=== PATIENT | male | born 1950 | race Caucasian/White ===

== ENCOUNTER 2025-02-09 07:56 | Emergency (ER) | payer MEDICARE, SELFPAY ==
[2025-02-09 08:00] VITALS: PULSE 94; O2SAT 95
[2025-02-09 08:04] VITALS: BP 158/95; PULSE 90; RESP 18; TEMP 36.8; O2SAT 98; BMI 25.3
--- NOTE | 2025-02-09 08:24 | ED.PSYCH ---
HPI - Psych General Chief Complaint: Psychiatric Symptoms Stated Complaint: SOB,CRISIS EVAL,UNREADABLE CMED Time Seen by Provider: 02/09/25 08:07 Source: patient, EMS, RN notes reviewed and old records reviewed Mode of arrival: EMS Limitations: no limitations History of Present Illness ED Provider: ORTIZ Abernathy HPI Narrative: 74-year-old male with medical history of depression, anxiety, HTN presents to the ED due to increased depression and anxiety. Patient states he has had increased life stressors stating that he has been evicted, lost his job, and has had a strained relationship with his daughter due to these issues. Patient states he is having a hard time finding a job due to his age. Patient states he has been drinking daily over the past 5 months endorsing 9 beers per day, denies drug use. Patient denies history of alcohol withdrawal seizures or admission for alcohol withdrawal. Patient explains he has had an increase in vague suicidal ideation and anxiety over the past 3 days with disrupted sleep, does not have a specific plan. Denies physical complaints today. Denies HI, AH, VH, chest pain, shortness of breath, difficulty breathing, abdominal pain, nausea, vomiting, headaches, visual changes Related Data Home Medications ?Medication ?Instructions ?Recorded ?Confirmed No Known Home Meds 02/09/25 02/09/25 Allergies Allergy/AdvReac Type Severity Reaction Status Date / Time No Known Allergies (No Known Allergy Verified 02/09/25 08:07 Allergies*) Review of Systems Review of Systems: Yes all other systems are reviewed and are negative PMFSH Past Medical History Attestation statement: The following information was validated with the patient. Source: old records reviewed and nursing notes reviewed Social History Social History Smoked in Last 30 Days: Yes Use of substances other than those prescribed or required for medical reasons: Yes Substance Use Type: Marijuana Advance Directives: No Advance Directives Information Provided: No Physical Exam Vital Signs: Vital Signs: Last Vital Signs Temp 98.2 F 02/09/25 08:04 Pulse 90 02/09/25 08:04 Resp 18 02/09/25 08:04 BP 158/95 H 02/09/25 08:04 Pulse Ox 98 02/09/25 08:04 O2 Del Method Room Air 02/09/25 08:04 BMI result Body Mass Index 25.3 GENERAL APPEARANCE: ?AxOx4, patient with appropriate eye contact, conversive, seems to have good insight to his psychiatric conditions as he does not want to act out on suicidal ideation, patient is able to identify multiple stressors in his life causing him to experience increased depression and anxiety, no acute distress. HEENT: ?NC, AT. MMM. EOMI, clear conjunctiva, oropharynx clear. NECK: ?Supple without lymphadenopathy.? No stiffness or restricted ROM. HEART:? Normal rate and regular rhythm, normal S1/S2, no m/r/g LUNGS:? CTAB, moving air well. No crackles or wheezes are heard. ABDOMEN: ?Soft, nontender, nondistended BACK: No CVAT, no obvious deformity. EXTREMITIES: ?Without cyanosis, clubbing or edema. NEUROLOGICAL: ?Grossly nonfocal. Alert and oriented, moving all 4 extremities. Observed to ambulate with normal gait. Skin: ?Warm and dry without any rash. Medications Administered Discontinued Medications Generic Name Dose Route Start Last Admin Trade Name Haileq PRN Reason Stop Dose Admin Lorazepam 1 mg 02/09/25 08:28 02/09/25 08:39 Lorazepam 1 Mg Tablet PO 02/09/25 08:29 1 mg ONCE ONE Administration Medical Decision Making Medical Decision Making [facility] Narrative: 74-year-old male with medical history of depression, anxiety, HTN presents to the ED due to increased depression and anxiety with passive suicidal ideation and difficulty sleeping over the last 4 days due to increased life stressors. Patient has been drinking daily over the past 5 months endorsing 9 beers per day. Denies drug use. BP 158/95, pulse rate of 90, respiratory rate of 18, afebrile with oral temp of 98.2?, O2 saturation 98% on room air. On physical exam patient with appropriate eye contact, conversive, seems to have good insight to his psychiatric conditions as he does not want to act out on suicidal ideation, patient is able to identify multiple stressors in his life causing him to experience increased depression and anxiety, no acute distress. labs without leukocytosis / leukopenia, no evidence of anemia, no electrolyte abnormalities. UA reveals 1+ urine blood without evidence of infection. Toxicology positive for marijuana, with ethyl alcohol level of 94. EKG reveals normal sinus rhythm with left axis deviation, no ST elevation/depression, lengthened QT. patient was evaluated by behavioral health specialist Ghanshyam Larsen who has placed referral to the [facility] and [facility] program for support in the patients mental health with referral to [facility] for psychiatric social worker, housing support, case management and recovery coaching/ peer support. Patient is agreeable to the plan. I have counseled patient to follow up with PCP due to blood in the urine, however patient follows urology and had recent prostate biopsy. Patient feels well enough to go home for self care. Patient is in agreement with the plan. Differential Diagnosis Differential Diagnoses: The differential diagnosis associated with the presentation includes Increased depression Increased anxiety Suicidal ideation Auditory hallucinations Visual hallucinations Alcohol withdrawal Admission/Observation Consideration of admission/observation: Escalation of care including admission/observation considered Lab Data MDM Lab Attestation statement: I reviewed the patient's lab results. 02/09/25 09:03 02/09/25 09:03 Labs: Lab Results 02/09/25 02/09/25 Range/Units 08:57 09:03 WBC 10.3 (4.8-10.8) X10*3/uL RBC 4.68 (4.60-5.80) X10*6/uL Hgb 16.2 (14.0-18.0) g/dl Hct 46.9 (42.0-52.0) % MCV 100.2 H (80.0-98.0) fL MCH 34.6 H (27.0-33.0) pg MCHC 34.5 (31.0-36.0) g/dl RDW 13.3 (11.0-16.0) % Plt Count 209 (160-400) X10*3/uL MPV 9.8 (9.4-12.4) fL Immature Gran % (Auto) 0.6 H (0.0-0.4) % Neut % (Auto) 58.8 (45-73) % Lymph % (Auto) 27.9 (20-40) % Banks % (Auto) 9.3 (2-11) % Eos % (Auto) 2.3 (0-4) % Baso % (Auto) 1.1 (0-2) % Lymph # (Auto) 2.9 (1.2-4.9) X10*3/uL Banks # (Auto) 1.0 (0.1-1.2) X10*3/uL Eos # (Auto) 0.2 (0.0-0.4) X10*3/uL Baso # (Auto) 0.1 (0.0-0.2) X10*3/uL Abs Immat Gran (auto) 0.06 H (0.00-0.03) X10*3/uL Absolute Neuts (auto) 6.1 (2.0-8.3) x10*3/uL Absolute Nucleated RBC 0.000 (0.0-0.012) X10*3/uL Nucleated RBC % (auto) 0.0 (0.0-0.2) /100WBC Sodium 140 (135-145) mmol/L Potassium 3.7 (3.3-5.1) mmol/L Chloride 104 (96-108) mmol/L Carbon Dioxide 29 (22-29) mmol/L Anion Gap 11 L (12-20) BUN 6 L (9-16) mg/dL Creatinine 0.86 (0.5-1.4) mg/dL Estim Creat Clear Calc 67.5 Estimated GFR > 60 Random Glucose 85 (60-115) mg/dL Calcium 8.8 (8.4-10.2) mg/dL Magnesium 2.5 (1.6-2.6) mg/dL Total Bilirubin 0.4 (0.0-1.0) mg/dL AST 38 H (5-37) U/L ALT 17 (0-40) U/L Alkaline Phosphatase 109 (39-117) U/L Total Protein 7.4 (6.5-8.0) g/dL Albumin 4.1 (3.5-5.0) g/dL Urine Color Yellow Urine Appearance Clear Urine pH 7.0 (5.0-9.0) Ur Specific [place] 1.010 (1.005-1.025) Urine Protein Negative (Neg-Trace) mg/dL Urine Glucose (UA) Negative (Negative) mg/dL Urine Ketones Negative (Negative) mg/dL Urine Blood Small (1+) H (Negative) Urine Nitrite Negative (Negative) Ur Leukocyte Esterase Negative (Negative) Urine RBC 0-2 (0-2) /HPF Urine WBC 0-5 (0-5) /HPF Ur Squamous Epith Cells 0-2 (0-2) /HPF Urine Bacteria None Seen (None Seen) Hyaline Casts 0-2 (0-2) /LPF Urine Opiates Screen Not Detected (Not Detect) Ur Buprenorphine Scrn Not Detected (Not Detect) ng/mL Ur Oxycodone Screen Not Detected (Not Detect) ng/mL Urine Methadone Screen Not Detected (Not Detect) ng/mL Urine Fentanyl Screen Not Detected (Not Detect) Ur Barbiturates Screen Not Detected (Not Detect) Ur Phencyclidine Scrn Not Detected (Not Detect) Ur Amphetamines Screen Not Detected (Not Detect) U Benzodiazepines Scrn Not Detected (Not Detect) Urine Cocaine Screen Not Detected (Not Detect) U Marijuana (THC) Screen POSITIVE H (Not Detect) Ethyl Alcohol 94 mg/dL Independent Interpretation I performed an independent interpretation of an: EKG Interpretation: I personally interpreted the EKG which reveals normal sinus rhythm with left axis deviation, no ST elevation /depression, QT prolongation Vent. Rate : 80 BPM Atrial Rate : 80 BPM P-R Int : 182 ms QRS Dur : 76 ms QT Int : 356 ms P-R-T Axes : 86 -36 72 degrees QTcB Int : 410 ms Normal sinus rhythm Left axis deviation Low voltage QRS Cannot rule out Anteroseptal infarct (cited on or before 30-Mar-2014) Abnormal ECG When compared with ECG of 25-Oct-2015 15:26, QRS axis Shifted left Questionable change in initial forces of Anterior leads Independent Historian Clinical information obtained from an independent historian. History obtained from or confirmed by: EMS External Record Review External record reviewed: Inpatient record, Office record and Outpatient record Chronic Conditions Patient?s care impacted by: Hypertension and Other ( depression, anxiety) Social Determinants Patient?s care significantly limited by Social Determinants of Health including: Other Social Determinant of Health Discharge Plan Discharge Clinical Impression: Depression Patient Disposition: Home, Self-Care Additional Instructions: Please follow up with the partial hospitalization program for access to therapist, and resources for your mental health they will call you Wednesday. You were provided with many resources and referred to [facility] for housing support, case management, and recovery coaching/ peer support. Your labs showed blood in the urine, please follow up with your PCP and urologist. You were seen in our Emergency Department today for treatment of a behavioral health issue. It is important after your visit that you follow up with either your behavioral health provider or a primary care doctor within 7 days.? If you have trouble finding a therapist you can reach out to [address] [phone] The National Suicide and Crisis Lifeline can be reached 7 days a week 24 hours a day.? Call 988 to speak with someone.? Return for any worsening symptoms or concerns such as thoughts of self harm or harm to others. Please call 911 if you feel your mental health is worsening.? Prescriptions: No Action No Known Home Meds Interventions: [place]-Suicide Risk Severity Scale Last Done: 02/09/25 08:14 Print Language: Lithuanian
--- NOTE | 2025-02-09 08:29 | ECG_ITS ---
Test Reason : CHECK QT Blood Pressure : */* mmHG Vent. Rate : 80 BPM Atrial Rate : 80 BPM P-R Int : 182 ms QRS Dur : 76 ms QT Int : 356 ms P-R-T Axes : 86 -36 72 degrees QTcB Int : 410 ms Normal sinus rhythm Left axis deviation Low voltage QRS Cannot rule out Anteroseptal infarct (cited on or before 30-Mar-2014) Abnormal ECG When compared with ECG of 25-Oct-2015 15:26, Questionable change in initial forces of Anterior leads Referred By: Nick Abernathy Electronically Signed By: MOHSEN BALBUENA
--- NOTE | 2025-02-09 08:42 | MHC.CM.ED ---
Patient is currently in ER. Apparently scheduled to be in [place] [address] due to eviction today. [facility] contacted by T/W with patient's permission. Letter verifying patient is currently in ER faxed to [phone]. Original letter provided to patient.
--- NOTE | 2025-02-09 08:50 | PC.NURSE ---
Pt moved from ED 5 to 6, patient presents for vague SI due to external life stressors. Pt is calm and cooperative at this time, currently pending medical clearance and CARE team evaluation
[2025-02-09 09:10] LABS: MANUAL DIFF FLAG NO
[2025-02-09 09:16] LABS: Appearance Urine Clear; Glucose Urine UA Negative (Negative); PH 7.0 (5.0-9.0); Specific Gravity - Urine 1.010 (1.005-1.025); UMIC TRIGGER UACC YES
[2025-02-09 09:18] LABS: Hematocrit 46.9 % (42.0-52.0); Hemoglobin 16.2 g/dl (14.0-18.0); Imm Gran Abs Auto 0.06 X10*3/uL (0.00-0.03); Imm Gran Pct Auto 0.6 % (0.0-0.4); Lymphocytes Absolute Auto 2.9 X10*3/uL (1.2-4.9); Mean Corpuscular HGB Conc 34.5 g/dl (31.0-36.0); Mean Corpuscular Hemoglobin 34.6 pg (27.0-33.0); Mean Corpuscular Volume 100.2 fL (80.0-98.0); NRBC Abs Auto 0.000 X10*3/uL (0.0-0.012); NRBC Pct Auto 0.0 /100WBC (0.0-0.2); Platelet Count 209 X10*3/uL (160-400); Red Blood Count 4.68 X10*6/uL (4.60-5.80); White Blood Count 10.3 X10*3/uL (4.8-10.8)
[2025-02-09 09:29] LABS: Alanine Aminotransferase 17 U/L (0-40); Albumin Level 4.1 g/dL (3.5-5.0); Alkaline Phosphatase 109 U/L (39-117); Anion Gap 11 (12-20); Aspartate Amino Transferase 38 U/L (5-37); Blood Urea Nitrogen 6 mg/dL (9-16); Calcium 8.8 mg/dL (8.4-10.2); Carbon Dioxide 29 mmol/L (22-29); Chloride 104 mmol/L (96-108); Creatinine Clr Calc Pharmacy 67.5; Estimated Glomerular Filt Rate > 60; Magnesium 2.5 mg/dL (1.6-2.6); Potassium 3.7 mmol/L (3.3-5.1); Sodium 140 mmol/L (135-145); Total Protein 7.4 g/dL (6.5-8.0)
[2025-02-09 09:37] LABS: Cannabinoid Screen Urine POSITIVE (Not Detect)
--- OUTSIDE RECORDS SUMMARY | 2025-02-09 10:15 | XMS_ITS | Encounter Summary ---
Author Organization [facility] Address [id number] [place] [phone] Care Team Providers Care Buyers' Agent Name Role Phone Harish Zaidi Primary Care Provider [phone] Encounter Details Date Type Department Care Team (Late st Contact Info) Description 11/13/2024 Lab Requisition [facility] - Main Lab [address] [facility] [place] [phone] Timoteo Valdez MD [address] [facility] [address] [place] [phone] Elevated prostate specific antigen (PSA) Social History Tobacco Use Types Packs/Day Years Used Date Smoking Tobacco: Never Assessed Sex and Gender Information Value Date Recorded Sex Assigned at Not on file Legal Sex Male 8:19 PM EST Gender Identity Not on file Sexual Orientation Not on file documented as of this encounter Plan of Treatment Upcoming Encounters Date Type Department Care Team (Late st Contact Info) Description 02/26/2025 1:30 PM EST Appointment [facility] Radiation Oncology [address] [place] [phone] 02/26/2025 2:00 PM EST Appointment [facility] Radiation Oncology [address] [place] [phone] Benito Jameson MD [address] [place] [address] documented as of this encounter Procedures Procedure Name Priority Date/Time Associated Diagnosis Comments FLUOROQUINOLONE RESISTANT GNR IDENTIFICATION AND SUSCEPTIBILITY Routine 11/13/2024 8:42 AM EDT Elevated prostate specific antigen (PSA) CULTURE FLUOROQUINOLONE RESISTANT ORGANISM Routine 11/13/2024 8:42 AM EDT Elevated prostate specific antigen (PSA) documented in this encounter Results * Fluoroquinolone resistant GNR identification and susceptibility (11/13/2024 8:42 AM EDT) Result 1 No Fluoroquinolone Resistant GNR Detected. 11/16/2024 6:05 AM EDT [facility] Swab Rectum structure / Unknown Non-blood Collection / Unknown 11/13/2024 8:42 AM EDT 11/13/2024 9:56 AM EDT Narrative [facility] - 11/16/2024 6:05 AM EDT Performed at: - [address] [id number] [employer] Dr[employer] Operator: Geraldine Hernandez MD, Phone: [phone] Timoteo Valdez MD LAB MICROBIOLOGY - GENERAL ORDER NIMCO Final Result Performing Organization Address City/[facility]/ZIP Co de Phone Number [facility] * Culture fluoroquinolone resistant organism (11/13/2024 8:42 AM EDT) Fluoroquinolone Resist GNR Cul Final report 11/16/2024 6:05 AM EDT [facility] Swab Rectum structure / Unknown Non-blood Collection / Unknown 11/13/2024 8:42 AM EDT 11/13/2024 9:56 AM EDT Narrative [facility] - 11/16/2024 6:05 AM EDT Performed at: - [address] [id number] [employer] Operator: Geraldine Hernandez MD, Phone: [phone] Timoteo Valdez MD LAB MICROBIOLOGY - GENERAL ORDER NIMCO Final Result [facility] documented in this encounter Visit Diagnoses Diagnosis Elevated prostate specific antigen (PSA) documented in this encounter Care Teams Buyers' Agent Relationship Specialty Start Date End Date Harish Zaidi PA [address] [place] [phone] PCP - General 11/10/24 documented as of this encounter
--- OUTSIDE RECORDS SUMMARY | 2025-02-09 10:15 | XMS_ITS | Encounter Summary ---
Author Organization [facility] Address [address] [place] [address] Phone Care Team Providers Care Chain Splitter Name Role Phone Harish Zaidi Primary Care Provider [phone] Brit Morrissey PA-C Unavailable [phone] Ant Galvez MD Unavailable [phone] Encounter Details Date Type Department Care Team (Late st Contact Info) Description 10/25/2024 Procedure Pass [facility], Ct Scan - [address] [address] Social History Tobacco Use Types Packs/Day Years Used Date Smoking Tobacco: Every Day Cigarettes 1 51.3 Started: 10/17/1973 Smokeless Tobacco: Never Alcohol Use Standard Drinks/Week Comments Not Currently 0 (1 standard drink = 0.6 oz pur e alcohol) Education Answer Date Recorded Are you interested in more education? Not on kameron e 07/17/2022 Are you concerned about learning? Not on file 07/17/2022 No 07/17/2022 No 07/17/2022 Digital Access Answer Date Recorded No 08/18/2022 No 08/18/2022 Reliable internet access at home? Not on file 08/18/2022 Device with a working camera? Not on file Sex and Gender Information Value Date Recorded Sex Assigned at Not on file Legal Sex Male 8:38 AM EDT Gender Identity Not on file Sexual Orientation Not on file documented as of this encounter Plan of Treatment Upcoming Encounters Date Type Department Care Team (Late st Contact Info) Description 02/19/2025 Procedure Pass [facility]oscopy Admitting Dept Virtual Department [address] [place] [phone] 02/19/2025 9:00 AM EST Hospital Encounter [facility] Admitting [facility] Virtual Department [address] [place] [phone] Herrera Neville MD [address] [address] 02/19/2025 9:00 AM EST - 02/19/2025 9:30 AM EST Surgery [facility]oscopy Admitting Dept Virtual Department [address] [place] [phone] Herrera Neville MD [address] [place] [phone] COLONOSCOPY Scheduled Procedures Name Priority Associated Diagnoses Date/Ti me COLONOSCOPY Hx of colonic polyps 02/19/2025 9:00 AM EST documented as of this encounter Visit Diagnoses Not on filedocumented in this encounter Care Teams Chain Splitter Relationship Specialty Start Date End Date Harish Zaidi PA [address] [place] [phone] [email or web address] PCP - General 09/15/19 Brit Morrissey PA-C [address] [place] [phone] Physician Electrical Automation Engineer Hematology 10/10/21 Ant Galvez MD [address] [address] Primary Oncologist Hematology and Oncology 07/03/22 documented as of this encounter Additional Source Comments The information contained in this document represents components of the legal health record. It is not the complete legal health record.[facility]
--- OUTSIDE RECORDS SUMMARY | 2025-02-09 10:15 | XMS_ITS | Encounter Summary ---
Author Organization [facility] Address [address] [place] [address] Phone Care Team Providers Care Die Barber Name Role Phone Harish Zaidi Primary Care Provider [phone] Brit Morrissey PA-C Unavailable [phone] Ant Galvez MD Unavailable [phone] Encounter Details Date Type Department Care Team (Latest Contact Info) Description 05/21/2020 Transcribe Orders Virtual Department [address] [place] [address] Herrera Neville MD [address] [place] [phone] [email or web address] Left shoulder pain, unspecified chronicity (Primary Dx) Social History Tobacco Use Types Packs/Day Years Used Date Smoking Tobacco: Every Day Cigarettes 1 51.3 Started: 10/17/1973 Smokeless Tobacco: Never Alcohol Use Standard Drinks/Week Comments Not Currently 0 (1 standard drink = 0.6 oz pur e alcohol) Sex and Gender Information Value Date Recorded Sex Assigned at Not on file Legal Sex Male 8:38 AM EDT Gender Identity Not on file Sexual Orientation Not on file documented as of this encounter Plan of Treatment Upcoming Encounters Date Type Department Care Team (Late st Contact Info) Description 02/19/2025 Procedure Pass [facility]oscopy Admitting Dept Virtual Department [address] [place] [address] 02/19/2025 9:00 AM EST Hospital Encounter [facility] Admitting [facility] Virtual Department [address] [place] [address] Herrera Neville MD [address] [address] 02/19/2025 9:00 AM EST - 02/19/2025 9:30 AM EST Surgery [facility]oscopy Admitting Dept Virtual Department [address] [place] [address] Herrera Neville MD [address] [address] [email or web address] COLONOSCOPY Scheduled Procedures Name Priority Associated Diagnoses Date/Ti me COLONOSCOPY Hx of colonic polyps 02/19/2025 9:00 AM EST documented as of this encounter Visit Diagnoses Diagnosis Left shoulder pain, unspecified chronicity- Primary Hx of colonic polyps Personal history of colonic polyps documented in this encounter Care Teams Die Barber Relationship Specialty Start Date End Date Harish Zaidi PA [address] [place] [phone] [email or web address] PCP - General 09/15/19 Brit Morrissey, ORTIZ [address] [place] [phone] Physician Medicaid Eligibility Specialist Hematology 10/10/21 Ant Galvez MD [address] [address] Primary Oncologist Hematology and Oncology 07/03/22 documented as of this encounter Additional Source Comments The information contained in this document represents components of the legal health record. It is not the complete legal health record.[facility]
--- OUTSIDE RECORDS SUMMARY | 2025-02-09 10:15 | XMS_ITS | Clinical Summary ---
Author Organization [address] [facility] Address [address] [place] [address] Phone Care Team Providers Care Plush Finisher Name Role Phone Harish Zaidi Primary Care Provider [phone] Encounters Date Type Department Care Team Description 02/02/[address] [facility] Radiation Oncology [address] [place] [address] [phone] Hernandez, [place], [place] 02/02/[address] [facility] Radiation Oncology [address] [place] [address] [phone] Hernandez, [place], [place] 02/02/[address] [facility] Radiation Oncology [address] [place] [address] [phone] [place], [place] 01/18/[address] [facility] [address] [place] [address] Timoteo Valdez MD Elevated prostate specific antigen (PSA) 12/27/2024 Lab Requisition [facility] Lab [address] [place] [address] Timoteo Valdez MD Elevated prostate specific antigen (PSA) 11/13/[address] [facility] [address] [place] [address] Timoteo Valdez MD Elevated prostate specific antigen (PSA) 11/10/2024 Lab Requisition [facility] Lab [address] [place] [phone] Timoteo Valdez MD Pyuria from Last 3 Months Social History Tobacco Use Types Packs/Day Years Used Date Smoking Tobacco: Never Assessed Sex and Gender Information Value Date Recorded Sex Assigned at Not on file Legal Sex Male 8:19 PM EST Gender Identity Not on file Sexual Orientation Not on file Plan of Treatment Upcoming Encounters Date Type Department Care Team (Late st Contact Info) Description 02/26/2025 1:[address] [facility] Radiation Oncology [address] [place] [phone] 02/26/2025 2:[address] [facility] Radiation Oncology [address] [place] [phone] Benito Jameson MD [address] [place] [address] Health Maintenance Due Date Last Done Comments Colorectal Cancer Screening: Colonoscopy 1950 COVID-19 Vaccine (#1) 1957 DTaP,Tdap,and Td Vaccines (1 - Tdap) 08/17/1971 Pneumococcal Vaccine: 50+ Ye ars (1 of 2 - PCV) 08/17/1971 Zoster Vaccines (1 of 2) 08/17/1971 RSV Immunization Adult Patie nts (1 - Risk 50-74 years 1-dose series) 2002 Abdominal Aortic Aneurysm (A AA) Screen 04/15/2023 Cholesterol Screening (Lipid Panel) 04/15/2023 Falls Risk Assessment 04/15/2023 Hepatitis C Screening 04/15/2023 Medicare Annual Wellness Visit 04/15/2023 Social Influencers of Health Screening 04/15/2023 Depression Screening 03/22/2024 Influenza Vaccine (#1) 2024 HIB Vaccines Aged Out No longer eligi ble based on patient's age to complete this topic HPV Vaccines Aged Out No longer eligi ble based on patient's age to complete this topic Hepatitis A Vaccines Aged Out No long er eligible based on patient's age to complete this topic Hepatitis B Vaccines Aged Out No long er eligible based on patient's age to complete this topic IPV Vaccines Aged Out No longer eligi ble based on patient's age to complete this topic MMR Vaccines Aged Out No longer eligi ble based on patient's age to complete this topic Meningococcal ACWY Vaccine Aged Out N o longer eligible based on patient's age to complete this topic Meningococcal B Vaccine Aged Out No l onger eligible based on patient's age to complete this topic RSV Immunization Patients Un gisselle 20 months Aged Out No longer eligible b ased on patient's age to complete this topic Varicella Vaccines Aged Out No longer eligible based on patient's age to complete this topic Procedures Procedure Name Priority Date/Time Associated Diagnosis Comments TISSUE EXAM Routine 01/18/2025 Elevated prostate specific antigen (PSA) PROSTATE SPECIFIC ANTIGEN DIAGNOSTIC Routine 12/27/2024 9:28 AM EDT Elevated prostate specific antigen (PSA) FLUOROQUINOLONE RESISTANT GNR IDENTIFICATION AND SUSCEPTIBILITY Routine 11/13/2024 8:42 AM EDT Elevated prostate specific antigen (PSA) CULTURE FLUOROQUINOLONE RESISTANT ORGANISM Routine 11/13/2024 8:42 AM EDT Elevated prostate specific antigen (PSA) CULTURE URINE Routine 11/10/2024 12:00 AM EDT Pyuria from Last 3 Months Results * Tissue Exam (01/18/2025) Final Diagnosis A. Prostate, Right medial base: - Benign prostatic tissue. B. Prostate, Right medial mid: - Benign prostatic tissue. C. Prostate, Right medial apex: - Benign prostatic tissue. D. Prostate, Right lateral base: - Benign prostatic tissue. E. Prostate, Right lateral mid: - Atypical small acinar proliferation (TRAY). F. Prostate, Right lateral apex: - Benign stroma. G. Prostate, left medial base: - Prostatic acinar adenocarcinoma (conventional type), grade group 2 (Tobias score 3+4=7). - Percentage pattern 4: 30%. - Tumor continuously involves 85% of 1 of 1 tissue core. H. Prostate, Left medial mid: - Atypical small acinar proliferation (TRAY). I. Prostate, Left medial apex: - Benign prostatic tissue. J. Prostate, Left lateral base: - Prostatic acinar adenocarcinoma (conventional type), grade group 2 (Tobias score 3+4=7). - Percentage pattern 4: 25%. - Tumor continuously involves 70% of 1 of 1 tissue core. K. Prostate, left lateral mid: - Benign prostatic tissue. L. Prostate, Left lateral apex: - Benign stroma. M. Prostate, Left medial lateral lesions: - Prostatic acinar adenocarcinoma (conventional type), grade group 2 (Tobias score 3+4=7). - Percentage pattern 4: 49%. - Tumor continuously involves 92% of overall tissue, present in 2 of 2 tissue cores. 01/23/2025 11:[address] [facility] at 1126 EST Clinical Information Elevated psa: 15.60 Left medial lateral lesions 01/23/2025 11:26 AM [facility] Gross Description A. Prostate, Right medial base: Labeled prostate biopsy, right base medial . Received in formalin, on a sponge, is a 1.1 x 0.1 cm soft, altman-white tissue core, which is submitted in toto, between sponges, in one cassette, one piece, x4. B. Prostate, Right medial mid: Labeled prostate biopsy, right mid medial . Received in formalin, on a sponge, is a focally stringy, 1.1 x 0.1 cm soft, altman-white tissue core, which is submitted in toto, between sponges, in one cassette, one piece, x4. C. Prostate, Right medial apex: Labeled prostate biopsy, right apex medial . Received in formalin, on a sponge, is a stringing, 0.25 x 0.1 cm soft, altman-white tissue core, which is submitted in toto, between sponges, in one cassette, one piece, x4. D. Prostate, Right lateral base: Labeled prostate biopsy, right base lateral . Received in formalin, on a sponge, is a 0.5 x 0.1 cm soft, altman-white tissue core, which is submitted in toto, between sponges, in one cassette, one piece, x4. E. Prostate, Right lateral mid: Labeled prostate biopsy, right mid lateral . Received in formalin, on a sponge, is a 0.5 x 0.1 cm soft, altman-white tissue core, which is submitted in toto, between sponges, in one cassette, one piece, x4. F. Prostate, Right lateral apex: Labeled prostate biopsy, right apex lateral . Received in formalin, on a sponge, is a focally stringy, 0.4 x 0.1 cm soft, altman-white tissue core, which is submitted in toto, between sponges, in one cassette, one piece, x4. G. Prostate, left medial base: Labeled prostate biopsy, left base medial . Received in formalin, on a sponge, is a 1.1 x 0.1 cm soft, altman-white tissue core, which is submitted in toto, between sponges, in one cassette, one piece, x4. H. Prostate, Left medial mid: Labeled prostate biopsy, left mid medial . Received in formalin, on a sponge, is a minimally disrupted, 0.65 x 0.1 cm soft, altman-white tissue core, which is submitted in toto, between sponges, in one cassette, one piece, x4. I. Prostate, Left medial apex: Labeled prostate biopsy, left apex medial . Received in formalin, on a sponge, is a 0.6 x 0.1 cm soft, altman-white tissue core, which is submitted in toto, between sponges, in one cassette, one piece, x4. J. Prostate, Left lateral base: Labeled prostate biopsy, left base lateral . Received in formalin, on a sponge, is a focally disrupted, 0.6 x 0.1 cm soft, altman-white tissue core, which is submitted in toto, between sponges, in one cassette, one piece, x4. K. Prostate, left lateral mid: Labeled prostate biopsy, left mid lateral . Received in formalin, on a sponge, is a 0.55 x 0.1 cm soft, altman-white tissue core, which is submitted in toto, between sponges, in one cassette, one piece, x4. L. Prostate, Left lateral apex: Labeled prostate biopsy, left apex lateral . Received in formalin, on a sponge, is a stringing, 0.6 x <0.1-0.1 cm soft, altman-white tissue core, which is submitted in toto, between sponges, in one cassette, one piece, x4. M. Prostate, Left medial lateral lesions: Labeled prostate biopsy, left medial lateral lesions . Received in formalin, on a sponge,are two soft, altman-white tissue cores measuring 0.6 x 0.1 cm and 0.8 x 0.1 cm, which are submitted in toto, between sponges, in one cassette, two pieces, x4. TS 01/23/2025 11:[address] [facility] Disclaimer Unless otherwise specified, all tissue is 10% NB formalin fixed and paraffin embedded. 01/23/2025 11:26 AM EST [facility] Tissue Prostate / Unknown 01/18/20252024 1:20 PM EDT Tissue specimen (specimen) Prostate / Unknown 01/18/2025 01/18/2025 1: 20 PM EDT Tissue specimen (specimen) Prostate / Unknown 01/18/2025 01/18/2025 1: 20 PM EDT Tissue specimen (specimen) Prostate / Unknown 01/18/2025 01/18/2025 1: 20 PM EDT Tissue specimen (specimen) Prostate / Unknown 01/18/2025 01/18/2025 1: 20 PM EDT Tissue specimen (specimen) Prostate / Unknown 01/18/2025 01/18/2025 1: 20 PM EDT Tissue specimen (specimen) Prostate / Unknown 01/18/2025 01/18/2025 1: 20 PM EDT Tissue specimen (specimen) Prostate / Unknown 01/18/2025 01/18/2025 1: 20 PM EDT Tissue specimen (specimen) Prostate / Unknown 01/18/2025 01/18/2025 1: 20 PM EDT Tissue specimen (specimen) Prostate / Unknown 01/18/2025 01/18/2025 1: 20 PM EDT Tissue specimen (specimen) Prostate / Unknown 01/18/2025 01/18/2025 1: 20 PM EDT Tissue specimen (specimen) Prostate / Unknown 01/18/2025 01/18/2025 1: 20 PM EDT Tissue specimen (specimen) Prostate / Unknown 01/18/2025 01/18/2025 1: 20 PM EDT us Timoteo Valdez MD LAB PATHOLOGY ORDERABLES Final R esult [facility] [address] [place] [address], * (ABNORMAL) Prostate specific antigen diagnostic (12/27/2024 9:28 AM EDT) PSA 15.60(H) 0.00 - 4.00 ng/mL LAB CHEMISTRY METHOD 12/27/2024 1:51 PM EDT [facility] Blood Venous blood specimen / Unknown 12/27/2024 9:28 AM EDT 12/27/2024 1:09 PM EDT Narrative [facility] - 12/27/2024 1:51 PM EDT The Siemens Advia Centaur Chemiluminescent Immunoassay is used. Results obtained with different assay methods or kits cannot be used interchangeably. Results cannot be interpreted as absolute evidence of the presence or absence of malignant disease. us Timoteo Valdez MD LAB BLOOD ORDERABLES Final Resul t Performing Organization Address City/[facility]/ZIP Co de Phone Number [facility] [address] [place] [address], * Fluoroquinolone resistant GNR identification and susceptibility (11/13/2024 8:42 AM EDT) Pathologist [facility] Result 1 No Fluoroquinolone Resistant GNR Detected. 11/16/2024 6:05 AM EDT [facility] Swab Rectum structure / Unknown Non-blood Collection / Unknown 11/13/2024 8:42 AM EDT 11/13/2024 9:56 AM EDT [facility] - 11/16/2024 6:05 AM EDT Performed at: [address] [place] [id number] Gluer: Geraldine Hernandez MD, Phone: [phone] us Timoteo Valdez MD LAB MICROBIOLOGY - GENERAL ORDER NIMCO Final Result [facility] * Culture fluoroquinolone resistant organism (11/13/2024 8:42 AM EDT) [facility] Fluoroquinolone Resist GNR Cul Final report 11/16/2024 6:05 AM EDT [facility] Swab Rectum structure / Unknown Non-blood Collection / Unknown 11/13/2024 8:42 AM EDT 11/13/2024 9:56 AM EDT Narrative [facility] - 11/16/2024 6:05 AM EDT Performed at: 01 - [facility] [address] [id number] Gluer: Geraldine Hernandez MD, Phone: [phone] Timoteo Valdez MD LAB MICROBIOLOGY - GENERAL ORDER NIMCO Final Result [facility] * Culture urine (11/10/2024 12:00 AM EDT) [facility] Culture, Urine No growth 11/11/2024 9:20 AM EDT [facility] Urine Urine specimen obtained by clean catch procedure / Unknown 11/10/2024 11/10/2024 2:08 PM EDT Timoteo Valdez MD LAB MICROBIOLOGY - GENERAL ORDER NIMCO Final Result Performing Organization Address City/[facility] Co de Phone Number [facility] [address] [place] [address], from Last 3 Months Insurance MEDICAID - [place] [facility] MEDICARE ADVANTAGE Care Teams Plush Finisher Relationship Specialty Start Date End Date Harish Zaidi PA [address] [place] [address] PCP - General 11/10/24
--- OUTSIDE RECORDS SUMMARY | 2025-02-09 10:15 | XMS_ITS | Encounter Summary ---
Author Organization [facility] Address [address] [place] [address] Phone Care Team Providers Care Web Marketing Specialist Name Role Phone Harish Zaidi Primary Care Provider [phone] Brit Morrissey PA-C Unavailable [phone] Ant Galvez MD Unavailable [phone] Encounter Details Date Type Department Care Team (Late st Contact Info) Description 12/25/2019 Procedure Pass [facility] Endoscopy Admitting Dept Virtual Department [address] [place] [phone] Social History Tobacco Use Types Packs/Day Years [...] Pass [facility] Endoscopy Admitting Dept Virtual Department [address] [place] [phone] 02/19/2025 9:00 AM EST Hospital Encounter [facility] Endoscopy Admitting Dept Virtual Department [address] [place] [address] Herrera Neville MD [address] [place] [phone] 02/19/2025 9:00 AM EST - 02/19/2025 9:30 AM EST Surgery [facility] Endoscopy Admitting Dept Virtual Department [address] [place] [phone] Herrera Neville MD [address] [place] [phone] [email or web address] COLONOSCOPY Scheduled Procedures Name Priority Associated Diagnoses Date/Ti la COLONOSCOPY Hx of colonic polyps 02/19/2025 9:00 AM EST documented as of this encounter Visit Diagnoses Not on filedocumented in this encounter Care Teams Web Marketing Specialist Relationship Specialty Start Date End Date Harish Zaidi PA [address] [place] [phone] [email or web address] PCP - General 09/15/19 Brit Morrissey PA-C [address] [place] [phone] Physician Flatlock Sewing Machine Operator Hematology 10/10/21 Ant Galvez MD [address] [address] Primary Oncologist Hematology and Oncology 07/03/22 documented as of this encounter Additional Source Comments The information contained in this document represents components of the legal health record. It is not the complete legal health record.[facility]
--- OUTSIDE RECORDS SUMMARY | 2025-02-09 10:15 | XMS_ITS | Encounter Summary ---
Author Organization [facility] Address [address] [place] [address] Phone Care Team Providers Care Lacing String Cutter Name Role Phone Harish Zaidi Primary Care Provider [phone] Brit Morrissey PA-C Unavailable [phone] Ant Galvez MD Unavailable [phone] Reason for Referral * MRI/CAT Scan - Closed Specialty Diagnoses / Procedures Referred By Contac t Referred To Contact Radiology Diagnoses Abnormal weight loss Procedures CT Abdomen/Pelvis CHG CT SCAN,ABDOMENT AND PELVIS,W CONTRAST CHG CT SCAN,ABDOMENT AND PELVIS,COMBO CHG CT SCAN,ABDOMENT AND PELVIS,W/O CONTRAST Harish Zaidi PA [address] [place] [address] Phone: tel: fax: [email or web address] Referral ID Status Reason Start Date Expiration Date Visits Re quested Visits Authorized [id number] Closed 11/03/2024 01/01/2025 1 1 Encounter Details Date Type Department Care Team (Late st Contact Info) Description 10/25/2024 Transcribe Orders Virtual Department [address] [place] [address] Harish Zaidi PA [address] [place] [address] [email or web address] Abnormal weight loss (Primary Dx) Social History Tobacco Use Types [...] st Contact Info) Description 02/19/2025 Procedure Pass [facility] Endoscopy Admitting Dept Virtual Department [address] [place] [phone] 02/19/2025 9:00 AM EST Hospital Encounter [facility] Endoscopy Admitting Dept Virtual Department [address] [place] [phone] Herrera Neville MD [address] [place] [phone] 02/19/2025 9:00 AM EST - 02/19/2025 9:30 AM EST Surgery [facility] Endoscopy Admitting Dept Virtual Department [address] [place] [phone] Herrera Neville MD [address] [place] [phone] [email or web address] COLONOSCOPY Scheduled Procedures Name Priority Associated Diagnoses Date/Ti ca COLONOSCOPY Hx of colonic polyps 02/19/2025 9:00 AM EST documented as of this encounter Results * CT ABDOMEN/PELVIS WITH CONTRAST (11/04/2024 12:39 PM EDT) Anatomical Region Laterality Modality Abdomen, Pelvis Computed Tomogra phy 11/09/2024 8:11 AM EDT Impressions 11/09/2024 8:21 AM EDT 1. No acute abnormality in the abdomen or pelvis. 2. 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 Correlate for any symptoms of intestinal angina/chronic mesenteric ischemia. 3. Ectatic abdominal aorta. 4. Enlarged prostate. Narrative 11/09/2024 8:[address] ABDOMEN/PELVIS WITH CONTRAST Referring clinician's provided indication for this examination in [facility]: Outside Radiology Order; weight loss TECHNIQUE: Multidetector-row CT of the abdomen and pelvis was performed after administration of intravenous contrast using tailored dose modulation techniques. Images were reconstructed in the axial, coronal, and sagittal planes. COMPARISON: None FINDINGS: Lower Chest: Bibasilar atelectasis or scar. Mild coronary artery calcifications, partially imaged. Liver: Subcentimeter hepatic hypodensities, too small to characterize, most likely cysts. No suspicious lesions. Biliary: Normal gallbladder. No biliary ductal dilatation. Spleen: No splenomegaly or focal lesions. Pancreas: No masses or ductal dilatation. Adrenal Glands: No nodules. Kidneys/Ureters: No solid masses, stones, or hydronephrosis. Bowel: Colonic diverticulosis. Normal appendix. No bowel distention or wall thickening. Peritoneum/Retroperitoneum: No masses, pneumoperitoneum, or fluid. Lymph Nodes: No lymphadenopathy. Pelvic Organs/Bladder: Enlarged prostate. Under distended bladder with mild wall thickening. No pelvic mass. Vessels: Ectatic abdominal aorta measuring up to 2.7 cm. Severe atherosclerosis. Left external iliac stent. 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 Patent inferior mesenteric artery. Bones/Soft Tissues: Spondylosis. Age-indeterminate compression fracture L1. Severe degenerative disc disease L3-4. Procedure Note Bryce Wise MD - 11/09/2024 CT ABDOMEN/PELVIS WITH CONTRAST Referring clinician's provided indication for this examination in [facility]:Outside Radiology Order; weight loss TECHNIQUE: Multidetector-row CT of the abdomen and pelvis was performedafter administration of intravenous contrast using tailored dosemodulation techniques. Images were reconstructed in the axial, coronal,and sagittal planes. COMPARISON: None FINDINGS: Lower Chest: Bibasilar atelectasis or scar. Mild coronary arterycalcifications, partially imaged. Liver: Subcentimeter hepatic hypodensities, too small to characterize,most likely cysts. No suspicious lesions. Biliary: Normal gallbladder. No biliary ductal dilatation. Spleen: No splenomegaly or focal lesions. Pancreas: No masses or ductal dilatation. Adrenal Glands: No nodules. Kidneys/Ureters: No solid masses, stones, or hydronephrosis. Bowel: Colonic diverticulosis. Normal appendix. No bowel distention orwall thickening. Peritoneum/Retroperitoneum: No masses, pneumoperitoneum, or fluid. Lymph Nodes: No lymphadenopathy. Pelvic Organs/Bladder: Enlarged prostate. Under distended bladder withmild wall thickening. No pelvic mass. Vessels: Ectatic abdominal aorta measuring up to 2.7 cm. Severeatherosclerosis. Left external iliac stent. 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 Patent inferior mesenteric artery. Bones/Soft Tissues: Spondylosis. Age-indeterminate compression fractureL1. Severe degenerative disc disease L3-4. IMPRESSION: 1. No acute abnormality in the abdomen or pelvis. 2. Severe atherosclerosis, with ostial occlusion of the SMA, and moderateto severe stenosis of the celiac origin. Correlate for any symptoms ofintestinal angina/chronic mesenteric ischemia. 3. Ectatic abdominal aorta. 4. Enlarged prostate. Harish KRUGER CT ABD/PELVIS Final Result documented in this encounter Visit Diagnoses Diagnosis Abnormal weight loss- Primary Loss of weight Abnormal weight loss Loss of weight Hx of colonic polyps Personal history of colonic polyps documented in this encounter Care Teams Lacing String Cutter Relationship Specialty Start Date End Date Harish Zaidi PA [address] [place] [address] [email or web address] PCP - General 09/15/19 Brit Morrissey PA-C [address] [place] [email or web address] Physician Pediatric Geneticist Hematology 10/10/21 Ant Galvez MD [address] [address] [email or web address] Primary Oncologist Hematology and Oncology 07/03/22 documented as of this encounter Additional Source Comments The information contained in this document represents components of the legal health record. It is not the complete legal health record.[facility]
--- OUTSIDE RECORDS SUMMARY | 2025-02-09 10:15 | XMS_ITS | Clinical Summary ---
Author Organization [facility] Address [address] [place] [address] Phone Care Team Providers Care Mechanical Technician Name Role Phone Harish Zaidi Primary Care Provider Brit Morrissey PA-C Unavailable [phone] Ant Galvez MD Unavailable Allergies Active Allergy Reactions Criticality Noted Date Comments Pollen Extracts Sneezing Low 12/21/2019 Medications amLODIPine-lili zepril (LOTREL 5-20) 5-20 mg per capsule Take 1 capsule by mouth daily. Active atorvastatin (LIPITOR) 20 MG tablet Take 20 mg by mouth daily. Active multivit with minerals/lutein (MULTI-RANGEL 50 AND OVER ORAL) Take 1 tablet by mouth daily. Active aspirin 81 mg chewable tablet Take 81 mg by mouth daily. Active clopidogrel (PLAVIX) 75 mg tablet Take 75 mg by mouth daily. 05/06/2022 Active diclofenac sodium (VOLTAREN) 75 MG EC tablet Take by mouth. 05/05/2021 Active Active Problems Patient Care Coordination No te Formatting of this note migh t be different from the original. Height 167.7cm no shoes on. 07/08/2022 Problem Noted Date Diagnosed Date Subclinical hyperthyroidism 10/18/2019 Assessment & Plan (11/01/2019 9:49 AM EDT): This is a patient who initially presented with subclinical hyperthyroidism he was losing weight. But his thyroid functions are now all within the reference range so I cannot say that he has been losing weight because of this condition. I suspect he had transient thyrotoxicosis and the etiology is unclear because all thyroid antibodies were negative. However he does have a daughter with Leona's thyroiditis and family members with autoimmune disease. Could be possible that the antibodies were negative because they wane after some time. I think that if the patient ever developed subclinical hyperthyroidism again or marked hyperthyroidism that he should have TPO and thyroglobulin antibodies checked at that time to see if they are elevated. That would explain the etiology. In the meantime there is nothing to do at the moment. He should have thyroid functions checked at least yearly or sooner if he develops symptoms of hyperthyroidism which includes tremors, palpitations, nervousness, anxiety, irritability, weight loss, hair loss, loose stools, myalgias, anxiety, irritability. I would not give the patient a follow-up appointment but he can be rereferred if needed. Assessment & Plan (10/18/2019 10:38 AM EDT): This is a patient with subclinical hyperthyroidism the TSH is suppressed but interestingly the free T4 is normal but not high normal which is odd I would expect the high normal free T4. He is not aware of history of autoimmune disease such as Leona's thyroiditis or Graves' disease. He is not taking any agents that can cause hyperthyroidism or thyrotoxicosis. He does not appear to have an enlarged thyroid gland or thyroid nodule based on palpation. At this point I think it is best to repeat lab work and check for Leona's and Graves' disease with thyroid antibody blood work. I would not request any scans presently before I confirmed that the patient does have a suppressed TSH. He does have some symptoms consistent with hyperthyroidism such as weight loss loose stools and anxiety but other than that he seems to be fine. I will give him a follow-up in 2 weeks time I asked him to do the lab work today. Chest pain 09/19/2019 Assessment & Plan (09/19/2019 8:02 AM EDT): As mentioned we are going to order him a stress test and an echocardiogram I will see him thereafter in follow-up. Some of his story sounds atypical but he has a lot of risk factors for coronary artery disease. I did talk to him about smoking cessation he has been trying for a very long time without any success. Benign essential hypertension 09/19/2019 Assessment & Plan (09/19/2019 8:02 AM EDT): We will need to keep a close eye on this and treat this accordingly to the guidelines which are less than 130 mmHg. Pure hypercholesterolemia 09/19/2019 Assessment & Plan (09/19/2019 8:02 AM EDT): I am going to order him a lipid profile as well I will then prescribe a statin agent depending on the numbers. Immunizations Immunization Administration Dates Next Due COVID-19 (Pre-01/11) Pfizer Vaccine, mRNA, PF ,06/13/2020 Influenza High-Dose Trivalent Preservative Free IM 02/07/2020 Family History Medical History Relation Comments Alzheimer's disease Father Coronary artery disease Mother Osteoporosis Mother Relation Status Comments Father Mother Social History Tobacco Use Types Packs/Day Years Used Date Smoking Tobacco: Every Day Cigarettes 1 51.3 Started: 10/17/1973 Smokeless Tobacco: Never Tobacco Cessation:Ready to Q uit: Yes Alcohol Use Standard Drinks/Week Comments Not Currently [...] on file Sexual Orientation Not on file Last Filed Vital Signs Vital Sign Reading Time Taken Comments Blood Pressure 124/70 07/08/2022 3:05 PM EDT Pulse 77 07/08/2022 3:05 PM EDT Temperature 36.8 C (98.3 F) 07/08/2022 3:05 PM EDT Respiratory Rate 18 12/25/2019 10:35 AM EDT Oxygen Saturation 99% 07/08/2022 3:05 PM EDT Inhaled Oxygen Concentration - - Weight 54.5 kg (120 lb 1.6 oz) 07/08/2022 3:05 P M EDT Height 167.7 cm (5' 6.02 ) 07/08/2022 3:05 PM ED T Body Mass Index 19.37 07/08/2022 3:05 PM EDT Plan of Treatment Upcoming Encounters Date Type Department Care Team (Late st Contact Info) Description 02/19/2025 Procedure Pass [facility] Endoscopy Admitting Dept Virtual Department [address] [place] [address] 02/19/2025 9:00 AM EST Hospital Encounter [facility] Endoscopy Admitting Dept Virtual Department [address] [place] [address] Guerita Bonilla MD [address] [place] [address] 02/19/2025 9:00 AM EST - 02/19/2025 9:30 AM EST Surgery [facility] Endoscopy Admitting Dept Virtual Department [address] [place] [address] Guerita Bonilla MD [address] [place] [phone] [email or web address] COLONOSCOPY Scheduled Procedures Name Priority Associated Diagnoses Date/Ti me COLONOSCOPY Hx of colonic polyps 02/19/2025 9:00 AM EST Health Maintenance Due Date Last Done Comments Adult Td,Tdap Booster 1950 DEPRESSION SCREENING 1964 SMOKING Hx and SMOKELESS TOBACCO SCREENING 1965 HEPATITIS C SCREENING 1970 PNEUMOCOCCAL VACCINES (50+ years) (1 of 2 - PCV) 08/17/1971 COLOGUARD 1997 FIT TEST 1997 FOBT 1997 SIGMOIDOSCOPY 1997 VIRTUAL COLONOSCOPY 1997 ZOSTER VACCINES (1 of 2) 2002 BLOOD PRESSURE 01/07/2023 07/08/2022 CREATININE LEVEL 01/06/2024 01/05/2023, 07/09/2022 POTASSIUM LEVEL 01/06/2024 01/05/2023, 07/09/2022 INFLUENZA VACCINE (#1) 2024 02/07/2020 COVID-19 VACCINE (3 - 2024-2 6 season) 2024 07/05/2020, 06/13/2020 COLONOSCOPY 12/24/2024 12/25/2019 COLORECTAL CANCER SCREENING 12/24/2024 LIPID PANEL 07/10/2027 07/09/2022 RSV VACCINE (1 - 1-dose 75+ series) 08/17/2027 ABDOMINAL AORTIC ANEURYSM (AAA) SCREENING Completed 11/04/2024, 09/29/2019 HEPATITIS A VACCINES Aged Out No long er eligible based on patient's age to complete this topic HIB VACCINES Aged Out No longer eligi ble based on patient's age to complete this topic MENINGOCOCCAL VACCINES (ACWY) Aged Out No longer eligible based on patient's age to complete this topic MENINGOCOCCAL VACCINES (B) Aged Out N o longer eligible based on patient's age to complete this topic Medical Devices Not on file Procedures Procedure Name Priority Date/Time Associated Diagnosis Comments CT ABDOMEN/PELVIS WITH CONTRAST Routine 11/04/2024 12:39 PM EDT Abnormal weight loss COMPREHENSIVE METABOLIC PANEL (CMP) Routine 01/05/2023 10:15 AM EDT Leukocytosis, unspecified type LIPID PANEL Routine 07/09/2022 9:11 AM EDT Benign essential hypertension ENDOSCOPY, COLON 12/25/2019 9:54 AM EDT from Last 3 Months or Most Recently Relevant to Health Maintenance Results * CT ABDOMEN/PELVIS WITH CONTRAST (11/04/2024 [...] clinician's provided indication for this examination in [facility]: Outside Radiology Order; weight loss TECHNIQUE: Multidetector-row [...] clinician's provided indication for this examination in Epic:Outside Radiology Order; weight loss TECHNIQUE: Multidetector-row CT [...] Ectatic abdominal aorta. 4. Enlarged prostate. Harish TONG IM CT ABD/PELVIS Final Result * Comprehensive metabolic panel (01/05/2023 10:15 AM EDT) SODIUM 137 133 - 146 mmol/L [facility] POTASSIUM 4.5 3.3 - 5.1 mmol/L [facility] CHLORIDE 99 96 - 108 mmol/L [facility] CO2 25 21 - 35 mmol/L [facility] BUN 8 6 - 19 mg/dL [facility] CREATININE 1.00 0.5 - 1.5 mg/dL [facility] GLUCOSE 83 70 - 99 mg/dL [facility] ALBUMIN 4.4 3.9 - 4.8 g/dL [facility] TOTAL PROTEIN 7.5 6.5 - 8.0 g/dL [facility] CALCIUM 9.2 8.4 - 10.3 mg/dL [facility] ALKALINE PHOSPHATASE 93 39 - 117 U/L [facility] TOTAL BILIRUBIN 0.3 0.0 - 1.2 mg/dL [facility] AST 24 0 - 37 U/L [facility] ALT 12 0 - 40 U/L [facility] GLOBULIN 3.1 1 - 4.8 g/dL [facility] EGFR 81 >59 mL/min/1.7 3m2 [facility] Comment:Estimated glomerular filtration rate calculated using the CKD-EPI refit equation. ANION GAP 18 10 - 20 mmol/L [facility] Blood 01/05/2023 10:1 5 AM EDT 01/05/2023 10:19 AM EDT us Ant Galvez MD LAB BLOOD BKR ORDERABL ES Final Result Performing Organization Address City/[facility]/ZIP Co de Phone Number [address] [phone] * Lipid panel (07/09/2022 9:11 AM EDT) HDL 41 mg/dL [facility] Comment: Interpretation <40 mg/dL: Low HDL cholesterol (major risk factor for CHD) Greater than or equal to 60 mg/dL: High HDL cholesterol ( negative risk factor for CHD) HDL - cholesterol is affected by a number of factors, e.g. smoking, excerise, hormones, sex and age. CHOLESTEROL 147 0 - 240 mg/dL [facility] TRIGLYCERIDES 73 30 - 160 mg/dL [facility] LDL 91 50 - 129 mg/dL [facility] Comment: LDL levels in terms of risk for coronary heart disease: <100 mg/dL: Optimal 100-129 mg/dL: Near or above optimal 130-159 mg/dL: Borderline high 160-189 mg/dL: High >190 mg/dL: Very High CARDIAC RISK RATIO 3.6 3.4 - 5.0 [facility] Blood 07/09/2022 9:11 AM EDT 07/09/2022 9:21 AM EDT us Harish TONG LAB BLOOD BKR ORDERABLES Final R esult Performing Organization Address City/[facility]/ZIP Co de Phone Number [address] [address] * ENDOSCOPY, COLON (12/25/2019 9:54 AM EDT) Narrative Transcriptions Guerita Bonilla MD - 12/25/2019 9:54 AM EDT Patient Name: Rosa Hawk Attending MD:: GUERITA BONILLA MD Procedure Date: 12/25/2019 9:54 AM Date of : 1950 Age: 69 Admit Type: Outpatient Gender: Male Room: [facility] Referring MD: Harish Zaidi Exam Type: Colonoscopy Indications: This is the patient's first colonoscopy, Positive Cologuard test Medications: Monitored Anesthesia Care Procedure: Informed consent was obtained from the patient after discussion of the indications, limitations, alternatives, benefits, and risks of the procedure. Risks specifically discussed include but are not limited to medication reactions, missed lesions, bleeding, perforation, or the need for emergentsurgery. Throughout the procedure, the patient's bloodpressure, pulse, end-tidal CO2, and oxygen saturations were monitored continuously. The Olympus pediatric variable colonoscopePCF-[id number] #2 was introduced through the anus and advanced tothe cecum, identified by the appendiceal orifice,ileocecal valve and palpation. The colonoscopy was performed without difficulty. The patient tolerated theprocedure fairly well. The quality of the bowel preparationwas good. Complications: No immediate complications. Estimated blood loss: Minimal. Findings: The perianal and digital rectal examinations were normal. Pertinent negatives include normal sphincter tone. A 2 to 3 mm polyp was found at 70 cm proximal to the anus. The polyp was flat. The polyp was removed witha piecemeal technique using a cold biopsy forceps. Resection and retrieval were complete. Estimatedblood loss was minimal. The terminal ileum appeared normal. Retroflexion in the right colon was performed. Non-bleeding internal hemorrhoids were found during retroflexion. The hemorrhoids were moderate. The exam was otherwise without abnormality on direct and retroflexion views. Impression: - One 2 to 3 mm polyp at 70 cm proximal to the anus, removed piecemeal using a cold biopsy forceps.Resected and retrieved. - The examined portion of the ileum was normal. - Non-bleeding internal hemorrhoids. - The examination was otherwise normal on direct and retroflexion views. Recommendation: - If the pathology report reveals adenomatoustissue, then repeat the colonoscopy for surveillance in 5years. GUERITA BONILLA MD 12/25/2019 10:19:57 AM This report has been signed electronically. Number of Addenda: 0 Note Initiated On: 12/25/2019 9:54 AM Procedure Code(s): --- Professional --- 39298, Colonoscopy, flexible; with biopsy, single or multiple --- Technical --- 48792, Colonoscopy, flexible; with biopsy, single or multiple Diagnosis Code(s): --- Professional --- D12.6, Benign neoplasm of colon, unspecified K64.8, Other hemorrhoids R19.5, Other fecal abnormalities --- Technical --- D12.6, Benign neoplasm of colon, unspecified K64.8, Other hemorrhoids R19.5, Other fecal abnormalities CPT copyright 2018 [employer]. All rights reserved. The codes documented in this report are preliminary and upon industrial gas servicer reviewmay be revised to meet current compliance requirements. Procedure Date: 12/25/2019 9:54:[address] [place] [address] Harish TONG GI PROCEDURE ORDERABLES Final Re sult from Last 3 Months or Most Recently Relevant to Health Maintenance Insurance [facility] MEDICARE PPO BLUE REPLACEMENT [facility] MEDICARE PPO BLUE [place] [address] [address] MEDICARE PPO BLUE REPLACEMENT [facility] MEDICARE PPO BLUE REPLACEMENT [facility] MEDICARE PPO BLUE REPLACEMENT [facility] MEDICARE PPO BLUE REPLACEMENT [facility] MEDICARE PPO BLUE REPLACEMENT [facility] MEDICARE PPO BLUE REPLACEMENT [facility] MEDICARE PPO BLUE REPLACEMENT Care Teams Mechanical Technician Relationship Specialty Start Date End Date Harish Zaidi PA [address] [place] [address] [email or web address] PCP - General 09/15/19 Brit Morrissey PA-C [address] [place] [address] [email or web address] Physician Appliance Repairer Hematology 10/10/21 Ant Galvez MD [address] [address] [email or web address] Primary Oncologist Hematology and Oncology 07/03/22 Additional Source Comments The information contained in this document represents components of the legal health record. It is not the complete legal health record.[facility]
--- OUTSIDE RECORDS SUMMARY | 2025-02-09 10:15 | XMS_ITS | Encounter Summary ---
Author Organization [facility] Address [address] [place] [address] Phone Care Team Providers Care Market Survey Representative Name Role Phone Harish Zaidi Primary Care Provider Brit Morrissey PA-C Unavailable [phone] Ant Galvez MD Unavailable [phone] Encounter Details Date Type Department Care Team (Late st Contact Info) Description 04/30/2024 Transcribe Orders Virtual Department [address] [place] [address] Harish Zaidi PA [address] [place] [address] [email or web address] Unspecified injury of head, initial encounter (Primary Dx) Social History Tobacco Use Types [...] Pass [facility] Endoscopy Admitting Dept Virtual Department [address] [place] [address] 02/19/2025 9:00 AM EST Hospital Encounter [facility] Endoscopy Admitting Dept Virtual Department [address] [place] [address] Herrera Neville MD [address] [place] [phone] 02/19/2025 9:00 AM EST - 02/19/2025 9:30 AM EST Surgery [facility] Endoscopy Admitting Dept Virtual Department [address] [place] [address] Herrera Neville MD [address] [place] [phone] [email or web address] COLONOSCOPY Scheduled Orders Name Type Priority Associated Diagnoses Orde r Schedule XR Cervical Spine Imaging Routine Unspecified injury of head, initial encounter Expected: 04/30/2024, Expires: 04/30/2025 Scheduled Procedures Name Priority Associated Diagnoses Date/Ti me COLONOSCOPY Hx of colonic polyps 02/19/2025 9:00 AM EST documented as of this encounter Visit Diagnoses Diagnosis Unspecified injury of head, initial encounter- Primary Hx of colonic polyps Personal history of colonic polyps documented in this encounter Care Teams Market Survey Representative Relationship Specialty Start Date End Date Harish Zaidi PA [address] [place] [phone] [email or web address] PCP - General 09/15/19 Brit Morrissey, ORTIZ [address] [place] [address] Physician Optimization Engineer Hematology 10/10/21 Ant Galvez MD [address] [address] [email or web address] Primary Oncologist Hematology and Oncology 07/03/22 documented as of this encounter Additional Source Comments The information contained in this document represents components of the legal health record. It is not the complete legal health record.[facility]
--- OUTSIDE RECORDS SUMMARY | 2025-02-09 10:15 | XMS_ITS | Encounter Summary ---
Author Organization [facility] Address [address] [place] [address] Phone Care Team Providers Care Charge Entry Clerk Name Role Phone Harish Zaidi Primary Care Provider [phone] Brit Morrissey PA-C Unavailable [phone] Ant Galvez MD Unavailable [phone] Encounter Details Date Type Department Care Team (Late st Contact Info) Description 06/08/2024 Transcribe Orders Virtual Department [address] [place] [address] Harish Zaidi PA [address] [place] [address] [email or web address] Osteoporosis, unspecified osteoporosis type, unspecified pathological fracture presence (Primary Dx) Social History Tobacco Use Types [...] Pass [facility] Endoscopy Admitting Dept Virtual Department [address] [place] [address] 02/19/2025 9:00 AM EST Hospital Encounter [facility] Endoscopy Admitting Dept Virtual Department [address] [place] [address] Herrera Neville MD [address] [place] [address] 02/19/2025 9:00 AM EST - 02/19/2025 9:30 AM EST Surgery [facility] Endoscopy Admitting Dept Virtual Department [address] [place] [address] Herrera Neville MD [address] [place] [address] [email or web address] COLONOSCOPY Scheduled Orders Name Type Priority Associated Diagnoses Orde r Schedule DXA Screening Imaging Routine Osteoporosis, unspecified osteoporosis type, unspecified pathological fracture presence Expected: 07/08/2024, Expires: 06/08/2025 Scheduled Procedures Name Priority Associated Diagnoses Date/Ti me COLONOSCOPY Hx of colonic polyps 02/19/2025 9:00 AM EST documented as of this encounter Visit Diagnoses Diagnosis Osteoporosis, unspecified osteoporosis type, unspecified pathological fracture presence- Primary Hx of colonic polyps Personal history of colonic polyps documented in this encounter Care Teams Charge Entry Clerk Relationship Specialty Start Date End Date Harish Zaidi PA [address] [place] [address] [email or web address] PCP - General 09/15/19 Brit Morrissey PA-C [address] [place] [address] Physician Console Manager Hematology 7/22/22 Ant Galvez MD [address] [place] [address] [email or web address] Primary Oncologist Hematology and Oncology 07/03/22 documented as of this encounter Additional Source Comments The information contained in this document represents components of the legal health record. It is not the complete legal health record.[facility]
--- OUTSIDE RECORDS SUMMARY | 2025-02-09 10:15 | XMS_ITS | Encounter Summary ---
Author Organization [facility] Address [address] [place] [address] Phone Care Team Providers Care Flame Hardening Machine Setter Name Role Phone Harish Zaidi Primary Care Provider [phone] Brit Morrissey PA-C Unavailable [phone] Ant Galvez MD Unavailable [phone] Encounter Details Date Type Department Care Team (Late st Contact Info) Description 09/15/2019 Ancillary Orders Virtual Department [address] [place] [address] Harish Zaidi PA [address] [place] [address] [email or web address] History of tobacco use Social History Tobacco Use Types Packs/Day Years [...] Pass [facility] Endoscopy Admitting Dept Virtual Department [address] [place] [address] 02/19/2025 9:00 AM EST Hospital Encounter [facility] Endoscopy Admitting Dept Virtual Department [address] [place] [address] Herrera Neville MD [address] [place] [address] 02/19/2025 9:00 AM EST - 02/19/2025 9:30 AM EST Surgery [facility] Endoscopy Admitting Dept Virtual Department [address] [place] [address] Herrera Neville MD [address] [place] [address] [email or web address] COLONOSCOPY Scheduled Procedures Name Priority Associated Diagnoses Date/Ti me COLONOSCOPY Hx of colonic polyps 02/19/2025 9:00 AM EST documented as of this encounter Results * US Abdominal Aortic Screening (09/29/2019 10:39 AM EDT) Anatomical Region Laterality Modality Abdomen Ultrasound 09/29/2019 10:4 7 AM EDT Impressions 09/29/2019 10:48 AM EDT No AAA. POS [id number] Narrative 09/29/2019 10:48 AM EDT COMPARISON: None. ABDOMINAL AORTA ULTRASOUND FINDINGS: No evidence of an abdominal aortic aneurysm. The proximal common iliac arteries are nonaneurysmal. Moderate diffuse calcified plaque. Aorta measures up to 2.2 cm maximally. Procedure Note Xu Flores MD - 09/29/2019 COMPARISON: None. ABDOMINAL AORTA ULTRASOUND FINDINGS: No evidence of an abdominal aortic aneurysm. The proximal common iliacarteries are nonaneurysmal. Moderate diffuse calcified plaque. Aortameasures up to 2.2 cm maximally. IMPRESSION: No AAA. POS [id number] us Harish TONG IMG US ABDOMEN Final Result documented in this encounter Visit Diagnoses Diagnosis History of tobacco use Personal history of tobacco use, presenting hazards to health History of tobacco use Personal history of tobacco use, presenting hazards to health Hx of colonic polyps Personal history of colonic polyps documented in this encounter Care Teams Flame Hardening Machine Setter Relationship Specialty Start Date End Date Harish Zaidi PA [address] [place] [address] [email or web address] PCP - General 09/15/19 Brit Morrissey PA-C [address] [place] [address] Physician Rail Maintenance Worker Hematology 10/10/21 Ant Galvez MD [facility] [address] [address] Primary Oncologist Hematology and Oncology 07/03/22 documented as of this encounter Additional Source Comments The information contained in this document represents components of the legal health record. It is not the complete legal health record.[facility]
--- OUTSIDE RECORDS SUMMARY | 2025-02-09 10:15 | XMS_ITS | Encounter Summary ---
Author Organization [facility] Address [address] [place] [address] Phone Care Team Providers Care Instructional Technology Teacher Name Role Phone Harish Zaidi Primary Care Provider [phone] Brit Morrissey PA-C Unavailable [phone] Ant Galvez MD Unavailable [phone] Reason for Referral * MRI/CAT Scan - Closed Specialty Diagnoses / Procedures Referred By Contac t Referred To Contact Radiology Diagnoses Unspecified injury of head, initial encounter Procedures CT Head CHG CT SCAN,HEAD/BRAIN,W/O CONTRAST MATL CHG CT SCAN HEAD CONTRAST CHG CT SCAN HEAD COMBO MS THOMAS MR AVILES TISS COMPOSITION W/MRI 1ORGN Harish Zaidi PA [address] [place] [address] Phone: tel: fax: [email or web address] Referral ID Status Reason Start Date Expiration Date Visits Re quested Visits Authorized [id number] Closed 04/28/2024 06/26/2024 1 1 Encounter Details Date Type Department Care Team (Late st Contact Info) Description 04/27/2024 Transcribe Orders Virtual Department [address] [place] [address] Harish Zaidi PA [address] [place] [address] [email or web address] Unspecified injury of head, initial encounter (Primary [...] st Contact Info) Description 02/19/2025 Procedure Pass [facility] Endoscopy Admitting Dept Virtual Department [address] [place] [address] 02/19/2025 9:00 AM EST Hospital Encounter [facility] Endoscopy Admitting Dept Virtual Department [address] [place] [phone] Herrera Neville MD [address] [place] [address] [email or web address] 02/19/2025 9:00 AM EST - 02/19/2025 9:30 AM EST Surgery [facility] Endoscopy Admitting Dept Virtual Department [address] [place] [phone] Herrera Neville MD [address] [place] [address] [email or web address] COLONOSCOPY Scheduled Procedures Name Priority Associated Diagnoses Date/Ti me COLONOSCOPY Hx of colonic polyps 02/19/2025 9:00 AM EST documented as of this encounter Results * CT HEAD WITHOUT CONTRAST (04/29/2024 1:50 PM EST) Anatomical Region Laterality Modality Head Computed Tomogra phy 05/01/2024 3:09 PM EST Impressions 05/01/2024 3:14 PM EST 1. No acute intracranial findings. Narrative 05/01/2024 3:[address] HEAD WITHOUT CONTRAST Referring clinician's provided indication for this examination in [facility]: Outside Radiology Order; unspecified injury of head initial encounter TECHNIQUE: Multidetector-row CT of the head was performed without intravenous contrast using tailored dose modulation techniques. Images were reconstructed in the axial, coronal, and sagittal planes. COMPARISON: FINDINGS: Brain Parenchyma: No midline shift, mass effect, parenchymal hemorrhage, or evidence of acute territorial infarct. There are areas of hypodensity in the periventricular white matter, likely a manifestation of chronic small vessel disease. Ventricular System and Extra-Axial Spaces: Normal. No extra-axial fluid collections. Basal cisterns are patent. No hydrocephalus. Osseous and Extracranial Structures: There is opacification and clinical imaged right maxillary sinus. There is a small amount of aerosolized fluid within left sphenoid sinus. The mastoids are clear. No suspicious calvarial bone lesion. Procedure Note Armand Aparicio, DO - 05/01/2024 CT HEAD WITHOUT CONTRAST Referring clinician's provided indication for this examination in [facility]:Outside Radiology Order; unspecified injury of head initial encounter TECHNIQUE: Multidetector-row CT of the head was performed withoutintravenous contrast using tailored dose modulation techniques. Imageswere reconstructed in the axial, coronal, and sagittal planes. COMPARISON: FINDINGS: Brain Parenchyma: No midline shift, mass effect, parenchymal hemorrhage,or evidence of acute territorial infarct. There are areas of hypodensityin the periventricular white matter, likely a manifestation of chronicsmall vessel disease. Ventricular System and Extra-Axial Spaces: Normal. No extra-axial fluidcollections. Basal cisterns are patent. No hydrocephalus. Osseous and Extracranial Structures: There is opacification and clinicalimaged right maxillary sinus. There is a small amount of aerosolized fluidwithin left sphenoid sinus. The mastoids are clear. No suspiciouscalvarial bone lesion. IMPRESSION: 1. No acute intracranial findings. Harish KRUGER CT HEAD/NECK Final Result documented in this encounter Visit Diagnoses Diagnosis Unspecified injury of head, initial encounter- Primary Unspecified injury of head, initial encounter Hx of colonic polyps Personal history of colonic polyps documented in this encounter Care Teams Instructional Technology Teacher Relationship Specialty Start Date End Date Harish Zaidi PA [address] [place] [phone] [email or web address] PCP - General 09/15/19 Brit Morirssey PA-C [address] [place] [address] Physician Etched Circuit Processor Hematology 10/10/21 Ant Galvez MD [address] [address] Primary Oncologist Hematology and Oncology 07/03/22 documented as of this encounter Additional Source Comments The information contained in this document represents components of the legal health record. It is not the complete legal health record.[facility]
--- OUTSIDE RECORDS SUMMARY | 2025-02-09 10:15 | XMS_ITS | Encounter Summary ---
Author Organization [facility] Address [address] [facility] [address] [address] [place] [address] Phone Care Team Providers Care Fruit Rancher Name Role Phone Harish Zaidi Primary Care Provider Brit Morrissye PA-C Unavailable [phone] Ant Galvez MD Unavailable [phone] Encounter Details Date Type Department Care Team (Late st Contact Info) Description 10/14/2023 Transcribe Orders Virtual Department [address] [place] [address] Harish Zaidi PA [address] [place] [address] [email or web address] Osteoporosis, unspecified osteoporosis type, unspecified pathological fracture [...] Pass [facility] Endoscopy Admitting Dept Virtual Department [address] [place] [phone] 02/19/2025 9:00 AM EST Hospital Encounter [facility] Endoscopy Admitting Dept Virtual Department [address] [place] [address] Herrera Neville MD [address] [place] [phone] [email or web address] 02/19/2025 9:00 AM EST - 02/19/2025 9:30 AM EST Surgery [facility] Endoscopy Admitting Dept Virtual [address] [address] Herrera Neville MD [address] [place] [address] [email or web address] COLONOSCOPY Scheduled Procedures Name Priority Associated Diagnoses Date/Ti me COLONOSCOPY Hx of colonic polyps 02/19/2025 9:00 AM EST documented as of this encounter Visit Diagnoses Diagnosis Osteoporosis, unspecified osteoporosis type, unspecified pathological fracture presence- Primary Hx of colonic polyps Personal history of colonic polyps documented in this encounter Care Teams Fruit Rancher Relationship Specialty Start Date End Date Harish Zaidi PA [address] [place] [phone] [email or web address] PCP - General 09/15/19 Brit Morrissey PA-C [address] [place] [address] [email or web address] Physician Engineer Fishing Vessel Hematology 10/10/21 Ant Galvez MD [address] [address] [email or web address] Primary Oncologist Hematology and Oncology 07/03/22 documented as of this encounter Additional Source Comments The information contained in this document represents components of the legal health record. It is not the complete legal health record.[facility]
--- OUTSIDE RECORDS SUMMARY | 2025-02-09 10:15 | XMS_ITS | Encounter Summary ---
Author Organization [facility] Address [address] [place] [phone] Care Team Providers Care Compacting Machine Operator/Tender Name Role Phone Harish Zaidi Primary Care Provider [phone] Encounter Details Date Type Department Care Team (Late st Contact Info) Description 12/27/2024 Lab Requisition [facility] - Main Lab [address] [facility] [place] [phone] Timoteo Valdez MD [address] [facility] [address] [place] [phone] Elevated prostate specific antigen (PSA) Social History [...] Info) Description 02/26/2025 1:30 PM EST Appointment [facility] Radiation Oncology [address] [place] [phone] 02/26/2025 2:00 PM EST Appointment [facility] Radiation Oncology [address] [place] [phone] Benito Jameson MD [address] [place] [address] documented as of this encounter Procedures Procedure Name Priority Date/Time Associated Diagnosis Comments PROSTATE SPECIFIC ANTIGEN DIAGNOSTIC Routine 12/27/2024 9:28 AM EDT Elevated prostate specific antigen (PSA) documented in this encounter Results * (ABNORMAL) Prostate specific antigen diagnostic (12/27/2024 9:28 AM EDT) PSA 15.60(H) 0.00 - 4.00 ng/mL LAB CHEMISTRY METHOD 12/27/2024 1:51 PM EDT [facility] Blood Venous blood specimen / Unknown 12/27/2024 9:28 AM EDT 12/27/2024 1:09 PM EDT Narrative [facility] - 12/27/2024 1:51 PM EDT The Siemens Advia Centaur Chemiluminescent Immunoassay is used. Results obtained with different assay methods or kits cannot be used interchangeably. Results cannot be interpreted as absolute evidence of the presence or absence of malignant disease. us Timoteo Valdez MD LAB BLOOD ORDERABLES Final Resul t [facility] [address] [place] [address], documented in this encounter Visit Diagnoses Diagnosis Elevated prostate specific antigen (PSA) documented in this encounter Care Teams Compacting Machine Operator/Tender Relationship Specialty Start Date End Date Harish Zaidi PA [address] [place] [phone] PCP - General 11/10/24 documented as of this encounter
--- OUTSIDE RECORDS SUMMARY | 2025-02-09 10:15 | XMS_ITS | Encounter Summary ---
Author Organization [facility] Address [address] [facility] [address] [place] [address] Phone Care Team Providers Care Manager R D Name Role Phone Harish Zaidi Primary Care Provider [phone] Brit Morrissey PA-C Unavailable [phone] Ant Galvez MD Unavailable [phone] Encounter Details Date Type Department Care Team (Late st Contact Info) Description 04/27/2024 Procedure Pass [facility], Ct Scan - [address] [address] Social History Tobacco Use Types Packs/Day Years [...] Pass [facility] Endoscopy Admitting Dept Virtual Department [address] [place] [address] 02/19/2025 9:00 AM EST Hospital Encounter [facility] Endoscopy Admitting Dept Virtual Department [address] [place] [address] Herrera Neville MD [address] [address] 02/19/2025 9:00 AM EST - 02/19/2025 9:30 AM EST Surgery [facility] Endoscopy Admitting Dept Virtual Department [address] [place] [address] Herrera Neville MD [address] [place] [address] COLONOSCOPY Scheduled Procedures Name Priority Associated Diagnoses Date/Ti me COLONOSCOPY Hx of colonic polyps 02/19/2025 9:00 AM EST documented as of this encounter Visit Diagnoses Not on filedocumented in this encounter Care Teams Manager R D Relationship Specialty Start Date End Date Harish Zaidi PA [address] [place] [phone] [email or web address] PCP - General 09/15/19 Brit Morrissey PA-C [address] [place] [address] Physician Distribution Transformer Assembler Hematology 10/10/21 Ant Galvez MD [address] [address] Primary Oncologist Hematology and Oncology 07/03/22 documented as of this encounter Additional Source Comments The information contained in this document represents components of the legal health record. It is not the complete legal health record.[facility]
--- OUTSIDE RECORDS SUMMARY | 2025-02-09 10:15 | XMS_ITS | Encounter Summary ---
Author Organization [facility] Address [address] [place] [phone] Care Team Providers Care Development Scientist Name Role Phone Harish Zaidi Primary Care Provider [phone] Encounter Details Date Type Department Care Team (Late st Contact Info) Description 11/10/2024 Lab Requisition [facility] - Main Lab [address] [facility] [place] [address] Timoteo Valdez MD [address] [facility] [address] [place] [phone] Pyuria Social History Tobacco Use Types Packs/Day Years [...] Description 02/26/2025 1:[address] [facility] Radiation Oncology [address] [place] [phone] 02/26/2025 2:[address] [facility] Radiation Oncology [address] [place] [phone] Benito Jameson MD [address] [place] [address] documented as of this encounter Procedures Procedure Name Priority Date/Time Associated Diagnosis Comments CULTURE URINE Routine 11/10/2024 12:00 AM EDT Pyuria documented in this encounter Results * Culture urine (11/10/2024 12:00 AM EDT) Culture, Urine No growth 11/11/2024 9:20 AM EDT [facility] Urine Urine specimen obtained by clean catch procedure / Unknown 11/10/2024 11/10/2024 2:08 PM EDT us Timoteo Valdez MD LAB MICROBIOLOGY - GENERAL ORDER NIMCO Final Result [facility] [address] [place] [address], documented in this encounter Visit Diagnoses Diagnosis Pyuria Other nonspecific finding on examination of urine documented in this encounter Care Teams Development Scientist Relationship Specialty Start Date End Date Harish Zaidi PA [address] [place] [phone] PCP - General 11/10/24 documented as of this encounter
--- OUTSIDE RECORDS SUMMARY | 2025-02-09 10:15 | XMS_ITS | Encounter Summary ---
Author Organization [facility] Address [address] [place] [phone] Care Team Providers Care Administrative Services Coordinator Name Role Phone Harish Zaidi Primary Care Provider [phone] Encounter Details Date Type Department Care Team (Late st Contact Info) Description 01/18/2025 Lab Requisition [facility] - Main Lab [address] [facility] [place] [phone] Timoteo Valdez MD [address] [facility] [address] [place] [phone] Elevated prostate specific antigen (PSA) Social History [...] Info) Description 02/26/2025 1:30 PM EST Appointment [facility] Radiation Oncology [address] [place] [phone] 02/26/2025 2:00 PM EST Appointment [facility] Radiation Oncology [address] [place] [address] Benito Jameson MD [address] [place] [address] documented as of this encounter Procedures Procedure Name Priority Date/Time Associated Diagnosis Comments TISSUE EXAM Routine 01/18/2025 Elevated prostate specific antigen (PSA) documented in this encounter Results * Tissue Exam (01/18/2025) Final Diagnosis [...] acinar adenocarcinoma (conventional type), 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 - Percentage pattern 4: 25%. [...] of 2 tissue cores. 01/23/2025 11:26 AM [facility] at 1126 EST Clinical Information Elevated psa: 15.60 Left medial lateral lesions 01/23/2025 11:26 AM [facility] Gross Description A. Prostate, Right [...] two pieces, x4. TS 01/23/2025 11:26 AM [facility] Disclaimer Unless otherwise specified, all tissue is 10% NB formalin fixed and paraffin embedded. 01/23/2025 11:26 AM [facility] Tissue Prostate / Unknown 01/18/20252024 [...] MD LAB PATHOLOGY ORDERABLES Final R esult [facility] [address] [place] [address], documented in this encounter Visit Diagnoses Diagnosis Elevated prostate specific antigen (PSA) documented in this encounter Care Teams Administrative Services Coordinator Relationship Specialty Start Date End Date Harish Zaidi PA [address] [place] [phone] PCP - General 11/10/24 documented as of this encounter
--- NOTE | 2025-02-09 14:24 | MHC.CARE ---
Pt has been referred to the [facility] [place] [facility]. Pt will be referred to [facility] and this Partial Hospitalization program. Pt has been referred to the [facility] for field services analyst, 3 day follow up, 7 day alert, housing referrals, Insurance Support, Clinical Intervention and Support, Urgent Case Management, and Recovery coaching/peer support.
[2025-02-09 16:18] VITALS: BP 119/91; PULSE 76; RESP 14; TEMP 36.7; O2SAT 97
--- NOTE | 2025-02-09 19:14 | MHC.CARE ---
Rad Team emailed PHP referrals and [facility] referrals for this pt.
== END 2025-02-09 16:28 | disposition home or self-care (01) ==
PROVIDERS: Emergency Provider Emergency Medicine; PCP Physician Assistant
DX: F33.1 Major depressive disorder, recurrent, moderate (principal); R06.02 Shortness of breath; F41.1 Generalized anxiety disorder; F43.0 Acute stress reaction; I10 Essential (primary) hypertension
CPT/HCPCS: 36415; 80053; 80307; 81001; 83735; 85025; 93005; 99285; S9485

== ENCOUNTER → 2025-02-09 08:29 | Outpatient (BNV) | payer MEDICARE, SELFPAY | PROVIDERS: Emergency Provider Emergency Medicine; PCP Physician Assistant; Visit Provider Internal Medicine | DX: R94.31 Abnormal electrocardiogram [ECG] [EKG] (principal); Z13.6 Encounter for screening for cardiovascular disorders | CPT/HCPCS: 93010 ==

== ENCOUNTER 2025-02-09 18:00 | Inpatient (IN) | payer MEDICARE, SELFPAY ==
--- NOTE | ~2025-02-09 | XR_ITS ---
EXAMINATION: XR HIP, LEFT CLINICAL INFORMATION: Pain COMPARISON: None available. TECHNIQUE: AP pelvis, and 2 views of the left hip. FINDINGS: There is no fracture, dislocation, or suspicious bone lesion. There is normal alignment of the left hip joint. Minimal changes of osteoarthrosis are present in both hip joints with gross preservation of joint space, and mild superolateral acetabular spurring. Normal femoral head contour without evidence of AVN. Mild degenerative changes are present in both SI joints. The sacrum appears intact. There is a vascular stent overlying the left sacrum. Soft tissues demonstrate mild vascular calcifications but are otherwise normal. XR/XR hip LT w PEL1V IMPRESSION: 1. No acute bony or soft tissue abnormalities of the left hip. 2. Very mild degenerative arthrosis of both hip joints. Electronically signed by: Dejuan Mora MD 02/21/2025 12:18 PM [facility]
--- NOTE | ~2025-02-09 | XR_ITS ---
EXAMINATION: XR LUMBOSACRAL SPINE CLINICAL INFORMATION: Pain COMPARISON: None available. TECHNIQUE: Three views of the lumbosacral spine. FINDINGS: There is a moderate levoconvex scoliosis, apex at L3-4. There is a mild rotatory component. There is a normal lordosis. There is a trace degenerative retrolisthesis of L3 on L4. Sagittal alignment is otherwise normal. There is an age indeterminant minimal superior endplate compression deformity of L1. No additional compression deformities, fractures, or suspicious bone lesions. Severe disc degeneration L3-4 with disc vacuum phenomenon. There is otherwise mild to moderate disc degeneration present. Facets are normally aligned. There are multilevel degenerative hypertrophic facet changes left greater than right, most notable at L3-S1. There is a vascular stent overlying the left sacrum. There are diffuse vascular calcifications present. Soft tissues otherwise appear normal. XR/XR lumbar spine 2-3V IMPRESSION: 1. Age-indeterminate mild superior endplate compression deformity of L1. 2. Moderate levoconvex scoliosis with moderate multilevel spondylosis most significant at L3-4. Electronically signed by: Dejuan Mora MD 02/21/2025 12:22 PM [facility]
[2025-02-09 18:32] VITALS: BP 187/94; PULSE 82; RESP 18; TEMP 37.3; O2SAT 96; BMI 21.8
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
--- NOTE | 2025-02-09 19:37 | PC.NURSE ---
this RN assumed care of this pt @1900, pt noted to be sitting upright in hospital stretcher, in no apparent distress / respiratory distress, calmly sitting pending care team codi
--- OUTSIDE RECORDS SUMMARY | 2025-02-09 19:43 | XMS_ITS | Encounter Summary ---
Author Organization [facility] Address [address] [facility] [address] [place] [address] Phone Care Team Providers Care Building Mover Name Role Phone Harish Zaidi Primary Care Provider [phone] Brit Morrissey PA-C Unavailable [phone] Ant Galvez MD Unavailable [phone] Reason for Referral * MRI/CAT Scan - Closed Specialty Diagnoses / Procedures Referred By Contac t Referred To Contact Radiology Diagnoses Abnormal weight loss Procedures CT Abdomen/Pelvis CHG CT SCAN,ABDOMENT AND PELVIS,W CONTRAST CHG CT SCAN,ABDOMENT AND PELVIS,COMBO CHG CT SCAN,ABDOMENT AND PELVIS,W/O CONTRAST Harish Zaidi PA [address] [place] [address] Phone: tel: fax: [email or web address] Referral ID Status Reason Start Date Expiration Date Visits Re quested Visits Authorized [id number] Closed 11/03/2024 01/01/2025 1 1 Encounter Details Date Type Department Care Team (Late st Contact Info) Description 10/25/2024 Transcribe Orders Virtual Department [address] [place] [address] Harish Zaidi PA [address] [place] [address] [email or web address] Abnormal weight loss (Primary Dx) Social History [...] st Contact Info) Description 02/19/2025 Procedure Pass [facility] Endoscopy Admitting Dept Virtual Department [address] [place] [address] 02/19/2025 9:00 AM EST Hospital Encounter [facility] Endoscopy Admitting Dept Virtual Department [address] [place] [address] Herrera Neville MD [address] [place] [phone] 02/19/2025 9:00 AM EST - 02/19/2025 9:30 AM EST Surgery [facility] Endoscopy Admitting Dept Virtual Department [address] [place] [address] Herrera Neville MD [address] [place] [phone] [email or web address] COLONOSCOPY Scheduled Procedures Name Priority Associated Diagnoses Date/Ti al COLONOSCOPY Hx of colonic polyps 02/19/2025 9:00 [...] clinician's provided indication for this examination in [facility]: Outside Radiology Order; weight loss TECHNIQUE: [...] clinician's provided indication for this examination in [facility]:Outside Radiology Order; weight loss TECHNIQUE: Multidetector-row [...] polyps documented in this encounter Care Teams Building Mover Relationship Specialty Start Date End Date Harish Zaidi PA [address] [place] [phone] [email or web address] PCP - General 09/15/19 Brit Morrissey PA-C [address] [place] [email or web address] Physician Obiee Architect Hematology 10/10/21 Ant Galvez MD [address] [address] [email or web address] Primary Oncologist Hematology and Oncology 07/03/22 documented as of this encounter Additional Source Comments The information contained in this document represents components of the legal health record. It is not the complete legal health record.[facility]
--- OUTSIDE RECORDS SUMMARY | 2025-02-09 19:43 | XMS_ITS | Encounter Summary ---
Author Organization [facility] Address [address] [place] [address] Phone Care Team Providers Care Laundry Clerk Name Role Phone Harish Zaidi Primary Care Provider Brit Morrissey PA-C Unavailable [phone] Ant Galvez MD Unavailable [phone] Encounter Details Date Type Department Care Team (Late st Contact Info) Description 10/14/2023 Transcribe Orders Virtual Department [address] [place] [address] Harish Zaidi PA [address] [place] [address] [email or web address] Osteoporosis, unspecified osteoporosis type, unspecified pathological fracture [...] Pass [facility] Endoscopy Admitting Dept Virtual Department [address] [place] [phone] 02/19/2025 9:00 AM EST Hospital Encounter [facility] Endoscopy Admitting Dept Virtual Department [address] [place] [address] Herrera Neville MD [address] [place] [address] [email or web address] 02/19/2025 9:00 AM EST - 02/19/2025 9:30 AM EST Surgery [facility] Endoscopy Admitting Dept Virtual [address] [address] Herrera Neville MD [address] [place] [address] [email or web address] COLONOSCOPY Scheduled Procedures Name Priority Associated Diagnoses Date/Ti me COLONOSCOPY Hx of colonic polyps 02/19/2025 9:00 AM EST documented as of this encounter Visit Diagnoses Diagnosis Osteoporosis, unspecified osteoporosis type, unspecified pathological fracture presence- Primary Hx of colonic polyps Personal history of colonic polyps documented in this encounter Care Teams Laundry Clerk Relationship Specialty Start Date End Date Harish Zaidi PA [address] [place] [address] [email or web address] PCP - General 09/15/19 Brit Morrissey PA-C [address] [place] [address] [email or web address] Physician Transaction Manager Hematology 10/10/21 Ant Galvez MD [address] [address] [email or web address] Primary Oncologist Hematology and Oncology 07/03/22 documented as of this encounter Additional Source Comments The information contained in this document represents components of the legal health record. It is not the complete legal health record.[facility]
--- OUTSIDE RECORDS SUMMARY | 2025-02-09 19:43 | XMS_ITS | Encounter Summary ---
Author Organization [facility] Address [address] [place] [phone] Care Team Providers Care Product Development Worker Name Role Phone Harish Zaidi Primary Care Provider [phone] Encounter Details Date Type Department Care Team (Late st Contact Info) Description 11/13/2024 Lab Requisition [facility] - Main Lab [address] [facility] [place] [phone] Timoteo Valdez MD [address] [facility] [address] [place] [phone] Elevated prostate specific antigen (PSA) Social History [...] Info) Description 02/26/2025 1:30 PM EST Appointment [facility] Radiation Oncology [address] [place] [phone] 02/26/2025 2:00 PM EST Appointment [facility] Radiation Oncology [address] [place] [address] Benito Jameson MD [address] [place] [address] documented as of this encounter Procedures Procedure [...] 11/16/2024 6:05 AM EDT Performed at: - [address] [id number] Pot Reliner: Geraldine Hernandez MD, Phone: [phone] Timoteo Valdez MD LAB MICROBIOLOGY - GENERAL ORDER NIMCO Final Result Performing Organization Address City/[facility]/ZIP Co de Phone Number [facility] * Culture fluoroquinolone resistant organism (11/13/2024 8:42 AM EDT) Fluoroquinolone Resist GNR Cul Final report 11/16/2024 6:05 AM EDT [facility] Swab Rectum structure / Unknown Non-blood Collection / Unknown 11/13/2024 8:42 AM EDT 11/13/2024 9:56 AM EDT Narrative [facility] - 11/16/2024 6:05 AM EDT Performed at: - [address] [id number] Pot Reliner: Geraldine Hernandez MD, Phone: [phone] Timoteo Valdez MD LAB MICROBIOLOGY - GENERAL ORDER NIMCO Final Result [facility] documented in this encounter Visit Diagnoses Diagnosis Elevated prostate specific antigen (PSA) documented in this encounter Care Teams Product Development Worker Relationship Specialty Start Date End Date Harish Zaidi PA [address] [place] [phone] PCP - General 11/10/24 documented as of this encounter
--- OUTSIDE RECORDS SUMMARY | 2025-02-09 19:43 | XMS_ITS | Encounter Summary ---
Author Organization [facility] Address [address] [place] [address] Phone Care Team Providers Care Atomic Fuel Assembler Name Role Phone Harish Zaidi Primary Care Provider Brit Morrissey PA-C Unavailable [phone] Ant Galvez MD Unavailable [phone] Encounter Details Date Type Department Care Team (Late st Contact Info) Description 09/15/2019 Ancillary Orders Virtual Department [address] [place] [address] Harish Zaiid PA [address] [place] [address] [email or web address] History of [email or web address] Social History Tobacco [...] Pass [facility] Endoscopy Admitting Dept Virtual Department [address] [place] [address] 02/19/2025 9:00 AM EST Hospital Encounter [facility] Endoscopy Admitting Dept Virtual Department [address] [place] [address] Herrera Neville MD [address] [place] [address] 02/19/2025 9:00 AM EST - 02/19/2025 9:30 AM EST Surgery [facility] Endoscopy Admitting Dept Virtual Department [address] [place] [address] Herrera Neville MD [address] [place] [phone] [email or web address] COLONOSCOPY Scheduled Procedures Name [...] polyps documented in this encounter Care Teams Atomic Fuel Assembler Relationship Specialty Start Date End Date Harish Zaidi PA [address] [place] [address] PCP - General 09/15/19 Brit Morrissey PA-C [address] [place] [phone] [email or web address] Physician Set Up Technician Hematology 10/10/21 Ant Galvez MD [facility] [address] [address] Primary Oncologist Hematology and Oncology 07/03/22 documented as of this encounter Additional Source Comments The information contained in this document represents components of the legal health record. It is not the complete legal health record.[facility]
--- OUTSIDE RECORDS SUMMARY | 2025-02-09 19:43 | XMS_ITS | Clinical Summary ---
Author Organization [facility] Address [address] [facility] [address] [place] [address] Phone Care Team Providers Care Canvas Goods Fabricator Name Role Phone Harish Zaidi Primary Care Provider [phone] Brit Morrissey PA-C Unavailable [phone] Ant Galvez MD Unavailable Allergies Active Allergy [...] Pass [facility] Endoscopy Admitting Dept Virtual Department [address] [place] [address] 02/19/2025 9:00 AM EST Hospital Encounter [facility] Endoscopy Admitting Dept Virtual Department [address] [place] [address] Guerita Bonilla MD [address] [place] [address] 02/19/2025 9:00 AM EST - 02/19/2025 9:30 AM EST Surgery [facility] Endoscopy Admitting Dept Virtual Department [address] [place] [address] Guerita Bonilla MD [address] [place] [address] [email or web address] COLONOSCOPY Scheduled Procedures Name Priority [...] clinician's provided indication for this examination in [facility]: Outside Radiology Order; weight loss TECHNIQUE: [...] EDT) SODIUM 137 133 - 146 mmol/L [facility] POTASSIUM 4.5 3.3 - 5.1 mmol/L [facility] CHLORIDE 99 96 - 108 mmol/L [facility] CO2 25 21 - 35 mmol/L [facility] BUN 8 6 - 19 mg/dL [facility] CREATININE 1.00 0.5 - 1.5 mg/dL [facility] GLUCOSE 83 70 - 99 mg/dL [facility] ALBUMIN 4.4 3.9 - 4.8 g/dL [facility] TOTAL PROTEIN 7.5 6.5 - 8.0 g/dL [facility] CALCIUM 9.2 8.4 - 10.3 mg/dL [facility] ALKALINE PHOSPHATASE 93 39 - 117 U/L [facility] TOTAL BILIRUBIN 0.3 0.0 - 1.2 mg/dL [facility] AST 24 0 - 37 U/L [facility] ALT 12 0 - 40 U/L [facility] GLOBULIN 3.1 1 - 4.8 g/dL [facility] EGFR 81 >59 mL/min/1.7 3m2 [facility] Comment:Estimated glomerular filtration rate calculated using the CKD-EPI refit equation. ANION GAP 18 10 - 20 mmol/L [facility] Blood 01/05/2023 10:1 5 AM EDT 01/05/2023 10:19 AM EDT us Ant Galvez MD LAB BLOOD BKR ORDERABL ES Final Result Performing Organization Address City/[facility]/ZIP Co de Phone Number [address] [address] * Lipid panel (07/09/2022 9:11 AM EDT) HDL 41 mg/dL [facility] Comment: Interpretation <40 mg/dL: Low HDL cholesterol (major risk factor for CHD) Greater than or equal to 60 mg/dL: High HDL cholesterol ( negative risk factor for CHD) HDL - cholesterol is affected by a number of factors, e.g. smoking, excerise, hormones, sex and age. CHOLESTEROL 147 0 - 240 mg/dL [facility] TRIGLYCERIDES 73 30 - 160 mg/dL [facility] LDL 91 50 - 129 mg/dL [facility] Comment: LDL levels in terms of risk for coronary heart disease: <100 mg/dL: Optimal 100-129 mg/dL: Near or above optimal 130-159 mg/dL: Borderline high 160-189 mg/dL: High >190 mg/dL: Very High CARDIAC RISK RATIO 3.6 3.4 - 5.0 C [facility] Blood 07/09/2022 9:11 AM EDT 07/09/2022 9:21 AM EDT us Harish TONG LAB BLOOD BKR ORDERABLES Final R esult Performing Organization Address City/[facility]/ZIP Co de Phone Number [address] [address] * ENDOSCOPY, COLON (12/25/2019 9:54 AM EDT) Narrative Transcriptions Guerita Bonilla MD - 12/25/2019 9:54 AM EDT Patient Name: Rosa Hawk Attending MD:: GUERITA BONILLA MD Procedure Date: 12/25/2019 9:54 AM Date of : 1950 Age: 69 Admit Type: Outpatient Gender: Male Room: [facility] Referring MD: Harish Zaidi Exam Type: Colonoscopy [...] 9:54 AM Procedure Code(s): --- Professional --- 53391, Colonoscopy, flexible; with biopsy, single or multiple --- Technical --- 10491, Colonoscopy, flexible; with biopsy, single or multiple Diagnosis Code(s): --- Professional --- D12.6, Benign neoplasm of colon, unspecified K64.8, Other hemorrhoids R19.5, Other fecal abnormalities --- Technical --- D12.6, Benign neoplasm of colon, unspecified K64.8, Other hemorrhoids R19.5, Other fecal abnormalities CPT copyright 2018 [employer]. All rights reserved. The codes documented in this report are preliminary and upon rolling attendant reviewmay be revised to meet current compliance requirements. Procedure Date: 12/25/2019 9:54:[address] [place] [address] Harish TONG GI PROCEDURE ORDERABLES Final Re sult from Last 3 Months or Most Recently Relevant to Health Maintenance Insurance [facility] MEDICARE PPO BLUE REPLACEMENT [facility] MEDICARE PPO BLUE REPLACEMENT [place] [address] [address] MEDICARE PPO BLUE REPLACEMENT [facility] MEDICARE PPO BLUE REPLACEMENT [facility] MEDICARE PPO BLUE REPLACEMENT [facility] MEDICARE PPO BLUE REPLACEMENT [facility] MEDICARE PPO BLUE REPLACEMENT [facility] MEDICARE PPO BLUE REPLACEMENT [facility] MEDICARE PPO BLUE REPLACEMENT Care Teams Canvas Goods Fabricator Relationship Specialty Start Date End Date Harish Zaidi PA [address] [place] [address] [email or web address] PCP - General 09/15/19 Brit Morrissey PA-C [address] [place] [address] [email or web address] Physician Propagation Worker Hematology 10/10/21 Ant Galvez MD [address] [address] [email or web address] Primary Oncologist Hematology and Oncology 07/03/22 Additional Source Comments The information contained in this document represents components of the legal health record. It is not the complete legal health record.[facility]
--- OUTSIDE RECORDS SUMMARY | 2025-02-09 19:43 | XMS_ITS | Encounter Summary ---
Author Organization [facility] Address [address] [place] [address] Phone Care Team Providers Care Kindergarten Tutor Name Role Phone Harish Zaidi Primary Care Provider [phone] Brit Morrissey PA-C Unavailable [phone] Ant Galvez MD Unavailable [phone] Encounter Details Date Type Department Care Team (Late st Contact Info) Description 10/25/2024 Procedure Pass [facility], Ct Scan - [address] [address] Social History Tobacco Use Types Packs/Day Years [...] Pass [facility] Endoscopy Admitting Dept Virtual Department [address] [place] [address] 02/19/2025 9:00 AM EST Hospital Encounter [facility] Endoscopy Admitting Dept Virtual Department [address] [place] [address] Herrera Neville MD [address] [address] 02/19/2025 9:00 AM EST - 02/19/2025 9:30 AM EST Surgery [facility] Endoscopy Admitting Dept Virtual Department [address] [place] [address] Herrera Neville MD [address] [place] [address] COLONOSCOPY Scheduled Procedures Name Priority Associated Diagnoses Date/Ti me COLONOSCOPY Hx of colonic polyps 02/19/2025 9:00 AM EST documented as of this encounter Visit Diagnoses Not on filedocumented in this encounter Care Teams Kindergarten Tutor Relationship Specialty Start Date End Date Harish Zaidi PA [address] [place] [phone] [email or web address] PCP - General 09/15/19 Brit Morrissey PA-C [address] [place] [address] Physician Guide Plant Hematology 10/10/21 Ant Galvez MD [address] [address] Primary Oncologist Hematology and Oncology 07/03/22 documented as of this encounter Additional Source Comments The information contained in this document represents components of the legal health record. It is not the complete legal health record.[facility]
--- OUTSIDE RECORDS SUMMARY | 2025-02-09 19:43 | XMS_ITS | Encounter Summary ---
Author Organization [facility] Address [address] [facility] [address] [place] [address] Phone Care Team Providers Care Studio Technician Name Role Phone Harish Zaidi Primary Care Provider Brit Morrissey PA-C Unavailable [phone] Ant Galvez MD Unavailable [phone] Encounter Details Date Type Department Care Team (Late st Contact Info) Description 06/08/2024 Transcribe Orders Virtual Department [address] [place] [address] Harish Zaidi PA [address] [place] [address] [email or web address] Osteoporosis, unspecified osteoporosis type, unspecified pathological fracture [...] [facility] Endoscopy Admitting Dept Virtual Department [address] [place] [address] 02/19/2025 9:00 AM EST Hospital Encounter [facility] Endoscopy Admitting Dept Virtual Department [address] [place] [address] Herrera Neville MD [address] [place] [address] 02/19/2025 9:00 AM EST - 02/19/2025 9:30 AM EST Surgery [facility] Endoscopy Admitting Dept Virtual Department [address] [place] [address] Herrera Neville MD [address] [place] [address] [email or web address] COLONOSCOPY Scheduled Orders Name Type Priority Associated [...] polyps documented in this encounter Care Teams Studio Technician Relationship Specialty Start Date End Date Harish Zaidi PA [address] [place] [phone] [email or web address] PCP - General 09/15/19 Brit Morrissey PA-C [address] [place] [address] Physician Internet Ecommerce Specialist Hematology 7/22/22 Ant Galvez MD [address] [place] [address] [email or web address] Primary Oncologist Hematology and Oncology 07/03/22 documented as of this encounter Additional Source Comments The information contained in this document represents components of the legal health record. It is not the complete legal health record.[facility]
--- OUTSIDE RECORDS SUMMARY | 2025-02-09 19:43 | XMS_ITS | Clinical Summary ---
Author Organization [address] [facility] Address [address] [place] [address] Phone Care Team Providers Care Plastic Surgery Manager Name Role Phone Harish Zaidi Primary Care Provider [phone] Encounters Date Type Department Care Team Description 02/02/[address] [facility] Radiation Oncology [address] [place] [phone] Hernandez, [place], [place] 02/02/[address] [facility] Radiation Oncology [address] [place] [phone] Hernandez, [place], [place] 02/02/[address] [facility] Radiation Oncology [address] [place] [phone] [employer], [place] 01/18/2025 Lab Requisition [facility] - Main Lab [address] [place] [address] Timoteo Vadlez MD Elevated prostate specific antigen (PSA) 12/27/2024 Lab Requisition [facility] Lab [address] [place] [address] Timoteo Valdez MD Elevated prostate specific antigen (PSA) 11/13/2024 Lab Requisition [facility] - Main Lab [address] [place] [address] Timoteo Valdez MD Elevated prostate specific antigen (PSA) 11/10/2024 Lab Requisition [facility] Lab [address] [place] [phone] Timoteo Valdez MD Pyuria from Last 3 [...] Info) Description 02/26/2025 1:30 PM EST Appointment [facility] Radiation Oncology [address] [place] [phone] 02/26/2025 2:00 PM EST Appointment [facility] Radiation Oncology [address] [place] [phone] Benito Jameson MD [address] [place] [address] Health Maintenance Due Date Last Done Comments [...] of 2 tissue cores. 01/23/2025 11:26 AM [facility] at 1126 EST Clinical Information Elevated psa: 15.60 Left medial lateral lesions 01/23/2025 11:26 AM [facility] Gross Description A. Prostate, Right medial [...] two pieces, x4. TS 01/23/2025 11:26 AM [facility] Disclaimer Unless otherwise specified, all tissue is 10% NB formalin fixed and paraffin embedded. 01/23/2025 11:26 AM EST [facility] Tissue Prostate / Unknown 01/18/20252024 1:20 [...] LAB PATHOLOGY ORDERABLES Final R esult [facility] [address] [place] [address], * (ABNORMAL) Prostate specific antigen diagnostic (12/27/2024 9:28 AM EDT) PSA 15.60(H) 0.00 - 4.00 ng/mL LAB CHEMISTRY METHOD 12/27/2024 1:51 PM EDT [facility] Blood Venous blood specimen / Unknown 12/27/2024 9:28 AM EDT 12/27/2024 1:09 PM EDT Narrative [facility] - 12/27/2024 1:51 PM EDT The Siemens Advia Centaur Chemiluminescent Immunoassay is used. Results obtained with different assay methods or kits cannot be used interchangeably. Results cannot be interpreted as absolute evidence of the presence or absence of malignant disease. us Timoteo Valdez MD LAB BLOOD ORDERABLES Final Resul t Performing Organization Address City/[facility]/ZIP Co de Phone Number [facility] [address] [place] [address], * Fluoroquinolone resistant GNR identification and susceptibility (11/13/2024 8:42 AM EDT) Pathologist [facility] Result 1 No Fluoroquinolone Resistant GNR Detected. 11/16/2024 6:05 AM EDT [facility] Swab Rectum structure / Unknown Non-blood Collection / Unknown 11/13/2024 8:42 AM EDT 11/13/2024 9:56 AM EDT [facility] - 11/16/2024 6:05 AM EDT Performed at: [address] [place] [id number] Foundry Patternmaker: Geraldine Hernandez MD, Phone: [phone] us Timoteo Valdez MD LAB MICROBIOLOGY - GENERAL ORDER NIMCO Final Result [facility] * Culture fluoroquinolone resistant organism (11/13/2024 8:42 AM EDT) [facility] Fluoroquinolone Resist GNR Cul Final report 11/16/2024 6:05 AM EDT [facility] Swab Rectum structure / Unknown Non-blood Collection / Unknown 11/13/2024 8:42 AM EDT 11/13/2024 9:56 AM EDT Narrative [facility] - 11/16/2024 6:05 AM EDT Performed at: 01 - [facility] [address] [id number] Foundry Patternmaker: Geraldine Hernandez MD, Phone: [phone] Timoteo Valdez MD LAB MICROBIOLOGY - GENERAL ORDER NIMCO Final Result [facility] * Culture urine (11/10/2024 12:00 AM EDT) [facility] Culture, Urine No growth 11/11/2024 9:20 AM EDT [facility] Urine Urine specimen obtained by clean catch procedure / Unknown 11/10/2024 11/10/2024 2:08 PM EDT Timoteo Valdez MD LAB MICROBIOLOGY - GENERAL ORDER NIMCO Final Result Performing Organization Address City/[facility] Co de Phone Number [facility] [address] [place] [address], from Last 3 Months Insurance MEDICAID - [place] [facility] MEDICARE ADVANTAGE Care Teams Plastic Surgery Manager Relationship Specialty Start Date End Date Harish Zaidi PA [address] [place] [address] PCP - General 11/10/24
--- OUTSIDE RECORDS SUMMARY | 2025-02-09 19:43 | XMS_ITS | Encounter Summary ---
Author Organization [facility] Address [address] [place] [phone] Care Team Providers Care Sales Representative Rural Power Name Role Phone Harish Zaidi Primary Care Provider [phone] Encounter Details Date Type Department Care Team (Late st Contact Info) Description 12/27/2024 Lab Requisition [facility] - Main Lab [address] [facility] [place] [phone] Timoteo Valdez MD [address] [facility] [address] [place] [phone] Elevated prostate specific antigen (PSA) Social History [...] Info) Description 02/26/2025 1:30 PM EST Appointment [facility] Radiation Oncology [address] [place] [phone] 02/26/2025 2:00 PM EST Appointment [facility] Radiation Oncology [address] [place] [phone] Benito Jameson MD [address] [place] [address] documented as of this encounter Procedures Procedure Name Priority Date/Time Associated Diagnosis Comments PROSTATE SPECIFIC ANTIGEN DIAGNOSTIC Routine 12/27/2024 9:28 AM EDT Elevated prostate specific antigen (PSA) documented in this encounter Results * (ABNORMAL) Prostate specific antigen diagnostic (12/27/2024 9:28 AM EDT) PSA 15.60(H) 0.00 - 4.00 ng/mL LAB CHEMISTRY METHOD 12/27/2024 1:[address] [facility] Blood Venous blood specimen / Unknown 12/27/2024 9:28 AM EDT 12/27/2024 1:[address] [facility] - 12/27/2024 1:51 PM EDT The Siemens Advia Centaur Chemiluminescent Immunoassay is used. Results obtained with different assay methods or kits cannot be used interchangeably. Results cannot be interpreted as absolute evidence of the presence or absence of malignant disease. us Timoteo Valdez MD LAB BLOOD ORDERABLES Final Resul t [facility] [address] [place] [address], documented in this encounter Visit Diagnoses Diagnosis Elevated prostate specific antigen (PSA) documented in this encounter Care Teams Sales Representative [employer] Relationship Specialty Start Date End Date Harish Zaidi PA [address] [place] [phone] PCP - General 11/10/24 documented as of this encounter
--- OUTSIDE RECORDS SUMMARY | 2025-02-09 19:43 | XMS_ITS | Encounter Summary ---
Author Organization [facility] Address [address] [place] [phone] Care Team Providers Care Compensation Analyst Name Role Phone Harish Zaidi Primary Care Provider [phone] Encounter Details Date Type Department Care Team (Late st Contact Info) Description 01/18/2025 Lab Requisition [facility] - Main Lab [address] [facility] [place] [phone] Timoteo Valdez MD [address] [facility] [address] [place] [phone] Elevated prostate specific antigen (PSA) Social History [...] Info) Description 02/26/2025 1:30 PM EST Appointment [facility] Radiation Oncology [address] [place] [phone] 02/26/2025 2:00 PM EST Appointment [facility] Radiation Oncology [address] [place] [address] Benito Jameson MD [address] [place] [address] documented as of this encounter Procedures Procedure [...] acinar adenocarcinoma (conventional type), 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 - Percentage pattern 4: 25%. [...] of 2 tissue cores. 01/23/2025 11:26 AM [facility] at 1126 EST Clinical Information Elevated psa: 15.60 Left medial lateral lesions 01/23/2025 11:26 AM [facility] Gross Description A. Prostate, Right [...] two pieces, x4. TS 01/23/2025 11:26 AM [facility] Disclaimer Unless otherwise specified, all tissue is 10% NB formalin fixed and paraffin embedded. 01/23/2025 11:26 AM [facility] Tissue Prostate / Unknown 01/18/20252024 [...] MD LAB PATHOLOGY ORDERABLES Final R esult [facility] ([facility]) [facility] [address] [place] [address], documented in this encounter Visit Diagnoses Diagnosis Elevated prostate specific antigen (PSA) documented in this encounter Care Teams Compensation Analyst Relationship Specialty Start Date End Date Harish Zaidi PA [address] [place] [phone] PCP - General 11/10/24 documented as of this encounter
--- OUTSIDE RECORDS SUMMARY | 2025-02-09 19:43 | XMS_ITS | Encounter Summary ---
Author Organization [facility] Address [address] [place] [address] Phone Care Team Providers Care Rat Breeder Name Role Phone Harish Zaidi Primary Care Provider [phone] Brit Morrissey PA-C Unavailable [phone] Ant Galvez MD Unavailable [phone] Encounter Details Date Type Department Care Team (Late st Contact Info) Description 12/25/2019 Procedure Pass [facility] Endoscopy Admitting Dept Virtual Department [address] [place] [address] Social History Tobacco Use Types Packs/Day Years [...] Pass [facility] Endoscopy Admitting Dept Virtual Department [address] [place] [address] 02/19/2025 9:00 AM EST Hospital Encounter [facility] Endoscopy Admitting Dept Virtual Department [address] [place] [address] Herrera Neville MD [address] [place] [address] 02/19/2025 9:00 AM EST - 02/19/2025 9:30 AM EST Surgery [facility] Endoscopy Admitting Dept Virtual Department [address] [place] [address] Herrera Neville MD [address] [place] [phone] [email or web address] COLONOSCOPY Scheduled Procedures Name Priority Associated Diagnoses Date/Ti hi COLONOSCOPY Hx of colonic polyps 02/19/2025 9:00 AM EST documented as of this encounter Visit Diagnoses Not on filedocumented in this encounter Care Teams Rat Breeder Relationship Specialty Start Date End Date Harish Zaidi PA [address] [place] [address] [email or web address] PCP - General 09/15/19 Brit Morrissey PA-C [address] [place] [address] Physician Top Cutter Hematology 10/10/21 Ant Galvez MD [address] [address] Primary Oncologist Hematology and Oncology 07/03/22 documented as of this encounter Additional Source Comments The information contained in this document represents components of the legal health record. It is not the complete legal health record.[facility]
--- OUTSIDE RECORDS SUMMARY | 2025-02-09 19:43 | XMS_ITS | Encounter Summary ---
Author Organization [facility] Address [address] [place] [phone] Care Team Providers Care Repertoire Manager Name Role Phone Harish Zaidi Primary Care Provider [phone] Encounter Details Date Type Department Care Team (Late st Contact Info) Description 11/10/2024 Lab Requisition [facility] - Main Lab [address] [facility] [place] [address] Timoteo Valdez MD [address] [facility] [address] [place] [phone] Pyuria Social History Tobacco Use Types Packs/Day [...] Info) Description 02/26/2025 1:30 PM EST Appointment [facility] Radiation Oncology [address] [place] [phone] 02/26/2025 2:00 PM EST Appointment [facility] Radiation Oncology [address] [place] [phone] Benito Jameson MD [address] [place] [address] documented as of this encounter Procedures Procedure Name Priority Date/Time Associated Diagnosis Comments CULTURE URINE Routine 11/10/2024 12:00 AM EDT Pyuria documented in this encounter Results * Culture urine (11/10/2024 12:00 AM EDT) Culture, Urine No growth 11/11/2024 9:20 AM EDT [facility] Urine Urine specimen obtained by clean catch procedure / Unknown 11/10/2024 11/10/2024 2:08 PM EDT us Timoteo Valdez MD LAB MICROBIOLOGY - GENERAL ORDER NIMCO Final Result [facility] [address] [place] [address], documented in this encounter Visit Diagnoses Diagnosis Pyuria Other nonspecific finding on examination of urine documented in this encounter Care Teams Repertoire Manager Relationship Specialty Start Date End Date Harish Zaidi PA [address] [place] [phone] PCP - General 11/10/24 documented as of this encounter
--- OUTSIDE RECORDS SUMMARY | 2025-02-09 19:43 | XMS_ITS | Encounter Summary ---
Author Organization [facility] Address [address] [place] [address] Phone Care Team Providers Care Care Specialist Name Role Phone Harish Zaidi Primary Care Provider [phone] Brit Morrissey PA-C Unavailable [phone] Ant Galvez MD Unavailable [phone] Encounter Details Date Type Department Care Team (Late st Contact Info) Description 04/30/2024 Transcribe Orders Virtual Department [address] [place] [address] Harish Zaidi PA [address] [place] [address] [email or web address] Unspecified injury of head, initial encounter (Primary [...] Pass [facility] Endoscopy Admitting Dept Virtual Department [address] [place] [address] 02/19/2025 9:00 AM EST Hospital Encounter [facility] End[facility] Admitting Dept Virtual Department [address] [place] [address] Herrera Neville MD [address] [place] [address] 02/19/2025 9:00 AM EST - 02/19/2025 9:30 AM EST Surgery [facility] Endoscopy Admitting Dept Virtual Department [address] [place] [address] Herrera Neville MD [address] [place] [address] [email or web address] COLONOSCOPY Scheduled Orders Name Type Priority Associated [...] polyps documented in this encounter Care Teams Care Specialist Relationship Specialty Start Date End Date Harish Zaidi PA [address] [place] [address] [email or web address] PCP - General 09/15/19 Brit Morrissey, ORTIZ [address] [place] [address] Physician Employment Adjudicator Hematology 10/10/21 Ant Galvez MD [address] [address] [email or web address] Primary Oncologist Hematology and Oncology 07/03/22 documented as of this encounter Additional Source Comments The information contained in this document represents components of the legal health record. It is not the complete legal health record.[facility]
--- OUTSIDE RECORDS SUMMARY | 2025-02-09 19:43 | XMS_ITS | Encounter Summary ---
Author Organization [facility] Address [address] [place] [address] Phone Care Team Providers Care Director Data Analytics Name Role Phone Harish Zaidi Primary Care Provider [phone] Brit Morrissey PA-C Unavailable [phone] Ant Galvez MD Unavailable [phone] Encounter Details Date Type Department Care Team (Late st Contact Info) Description 04/27/2024 Procedure Pass [facility], Ct Scan - [address] [address] Social History Tobacco Use Types Packs/Day Years [...] Pass [facility] Endoscopy Admitting Dept Virtual Department [address] [place] [address] 02/19/2025 9:00 AM EST Hospital Encounter [facility] Endoscopy Admitting Dept Virtual Department [address] [place] [address] Herrera Neville MD [address] [address] 02/19/2025 9:00 AM EST - 02/19/2025 9:30 AM EST Surgery [facility] Endoscopy Admitting Dept Virtual Department [address] [place] [address] Herrera Neville MD [address] [place] [address] COLONOSCOPY Scheduled Procedures Name Priority Associated Diagnoses Date/Ti me COLONOSCOPY Hx of colonic polyps 02/19/2025 9:00 AM EST documented as of this encounter Visit Diagnoses Not on filedocumented in this encounter Care Teams Director Data Analytics Relationship Specialty Start Date End Date Harish Zaidi PA [address] [place] [address] [email or web address] PCP - General 09/15/19 Brit Morrissey PA-C [address] [place] [address] Physician Mastic Man Hematology 10/10/21 Ant Galvez MD [address] [address] Primary Oncologist Hematology and Oncology 07/03/22 documented as of this encounter Additional Source Comments The information contained in this document represents components of the legal health record. It is not the complete legal health record.[facility]
--- OUTSIDE RECORDS SUMMARY | 2025-02-09 19:43 | XMS_ITS | Encounter Summary ---
Author Organization [facility] Address [address] [place] [address] Phone Care Team Providers Care Rail Switchman Name Role Phone Harish Zaidi Primary Care Provider [phone] Brit Morrissey PA-C Unavailable [phone] Ant Galvez MD Unavailable [phone] Encounter Details Date Type Department Care Team (Latest Contact Info) Description 05/21/2020 Transcribe Orders Virtual Department [address] [place] [address] Herrera Neville MD [address] [place] [address] [email or web address] Left shoulder pain, unspecified chronicity (Primary Dx) [...] [facility] Endoscopy Admitting Dept Virtual Department [address] [place] [address] 02/19/2025 9:00 AM EST Hospital Encounter [facility] Endoscopy Admitting Dept Virtual Department [address] [place] [address] Herrera Neville MD [address] [address] 02/19/2025 9:00 AM EST - 02/19/2025 9:30 AM EST Surgery [facility] Endoscopy Admitting Dept Virtual Department [address] [place] [address] Herrera Neville MD [address] [address] [email or web address] COLONOSCOPY Scheduled Procedures Name Priority Associated Diagnoses Date/Ti me COLONOSCOPY Hx of colonic polyps 02/19/2025 9:00 AM EST documented as of this encounter Visit Diagnoses Diagnosis Left shoulder pain, unspecified chronicity- Primary Hx of colonic polyps Personal history of colonic polyps documented in this encounter Care Teams Rail Switchman Relationship Specialty Start Date End Date Harish Zaidi PA [address] [place] [phone] [email or web address] PCP - General 09/15/19 Brit Morrissey, ORTIZ [address] [place] [address] Physician Spray Rig Operator Hematology 10/10/21 Ant Galvez MD [address] [address] Primary Oncologist Hematology and Oncology 07/03/22 documented as of this encounter Additional Source Comments The information contained in this document represents components of the legal health record. It is not the complete legal health record.[facility]
--- OUTSIDE RECORDS SUMMARY | 2025-02-09 19:43 | XMS_ITS | Encounter Summary ---
Author Organization [facility] Address [address] [place] [address] Phone Care Team Providers Care Manager Convention Name Role Phone Harish Zaidi Primary Care Provider [phone] Brit Morrissey PA-C Unavailable [phone] Ant Galvez MD Unavailable [phone] Reason for Referral * MRI/CAT Scan - Closed Specialty Diagnoses / Procedures Referred By Contac t Referred To Contact Radiology Diagnoses Unspecified injury of head, initial encounter Procedures CT Head CHG CT SCAN,HEAD/BRAIN,W/O CONTRAST MATL CHG CT SCAN HEAD CONTRAST CHG CT SCAN HEAD COMBO WA THOMAS MR AVILES TISS COMPOSITION W/MRI 1ORGN Harish Zaidi PA [address] [place] [address] Phone: tel: fax: [email or web address] Referral ID Status Reason Start Date Expiration Date Visits Re quested Visits Authorized [id number] Closed 04/28/2024 06/26/2024 1 1 Encounter Details Date Type Department Care Team (Late st Contact Info) Description 04/27/2024 Transcribe Orders Virtual Department [address] [place] [address] Harish Zaidi PA [address] [place] [address] [email or web address] Unspecified injury of head, initial encounter [...] st Contact Info) Description 02/19/2025 Procedure Pass [facility] Endoscopy Admitting Dept Virtual Department [address] [place] [address] 02/19/2025 9:00 AM EST Hospital Encounter [facility] Endoscopy Admitting Dept Virtual Department [address] [place] [address] Herrera Neville MD [address] [place] [phone] [email or web address] 02/19/2025 9:00 AM EST - 02/19/2025 9:30 AM EST Surgery [facility] Endoscopy Admitting Dept Virtual Department [address] [place] [address] Herrera Neville MD [address] [place] [address] [email or web address] COLONOSCOPY Scheduled Procedures Name [...] clinician's provided indication for this examination in [facility]: Outside Radiology Order; unspecified injury of head [...] clinician's provided indication for this examination in [facility]:Outside Radiology Order; unspecified injury of head initial [...] polyps documented in this encounter Care Teams Manager Convention Relationship Specialty Start Date End Date Harish Zaidi PA [address] [place] [address] [email or web address] PCP - General 09/15/19 Brit Morrissey PA-C [address] [place] [address] Physician Open Cut Examiner Hematology 10/10/21 Ant Galvez MD [address] [address] Primary Oncologist Hematology and Oncology 07/03/22 documented as of this encounter Additional Source Comments The information contained in this document represents components of the legal health record. It is not the complete legal health record.[facility]
[2025-02-09 19:49] LABS: MANUAL DIFF FLAG NO
[2025-02-09 19:51] LABS: Hematocrit 43.6 % (42.0-52.0); Hemoglobin 15.5 g/dl (14.0-18.0); Imm Gran Abs Auto 0.04 X10*3/uL (0.00-0.03); Imm Gran Pct Auto 0.5 % (0.0-0.4); Lymphocytes Absolute Auto 1.8 X10*3/uL (1.2-4.9); Mean Corpuscular HGB Conc 35.6 g/dl (31.0-36.0); Mean Corpuscular Hemoglobin 35.4 pg (27.0-33.0); Mean Corpuscular Volume 99.5 fL (80.0-98.0); NRBC Abs Auto 0.000 X10*3/uL (0.0-0.012); NRBC Pct Auto 0.0 /100WBC (0.0-0.2); Platelet Count 178 X10*3/uL (160-400); Red Blood Count 4.38 X10*6/uL (4.60-5.80); White Blood Count 8.4 X10*3/uL (4.8-10.8)
[2025-02-09 20:00] VITALS: RESP 16
[2025-02-09 20:04] LABS: Alanine Aminotransferase 12 U/L (0-40); Albumin Level 3.9 g/dL (3.5-5.0); Alkaline Phosphatase 106 U/L (39-117); Anion Gap 13 (12-20); Aspartate Amino Transferase 35 U/L (5-37); Blood Urea Nitrogen 10 mg/dL (9-16); Calcium 8.8 mg/dL (8.4-10.2); Carbon Dioxide 27 mmol/L (22-29); Chloride 104 mmol/L (96-108); Creatinine Clr Calc Pharmacy 69.7; Estimated Glomerular Filt Rate > 60; Potassium 3.5 mmol/L (3.3-5.1); Sodium 140 mmol/L (135-145); Total Protein 6.9 g/dL (6.5-8.0)
[2025-02-09 22:00] VITALS: RESP 18
[2025-02-10 06:17] VITALS: BP 176/90; PULSE 76; RESP 20; TEMP 36.6; O2SAT 96
[2025-02-10 06:27] LABS: Appearance Urine Turbid; Glucose Urine UA Negative (Negative); PH 7.5 (5.0-9.0); Specific Gravity - Urine 1.010 (1.005-1.025)
[2025-02-10 06:37] LABS: Cannabinoid Screen Urine POSITIVE (Not Detect)
--- NOTE | 2025-02-10 09:52 | PC.NURSE ---
This RN assumed care of this patient @ 0700 Patient vague SI no HI Patient son Vaughn called wanting an update Patient gave permission for this RN to speak with son Patient resting comfortably in bed Patient waiting to see Care Team
--- NOTE | 2025-02-10 10:44 | MHC.CARE ---
ED17 H Rosa Hawk Pt will be a Dual DX bedsearch.
[2025-02-10 10:59] VITALS: BP 165/86; PULSE 74; RESP 20; TEMP 36.9; O2SAT 98
[2025-02-11 06:41] VITALS: BP 159/90; PULSE 76; RESP 18; TEMP 36.4; O2SAT 100
--- NOTE | 2025-02-11 07:50 | PC.NURSE ---
Assumed care, report received. Pt is currently sleeping, he is brought breakfast.
[2025-02-11 18:03] VITALS: BP 167/91; PULSE 72; RESP 14; TEMP 37.1; O2SAT 97
[2025-02-12 06:33] VITALS: BP 128/81; PULSE 72; RESP 16; TEMP 36.7; O2SAT 98
--- NOTE | 2025-02-12 07:09 | PC.NURSE ---
Assumed care of patient at 0645. Patient resting in bed. Respirations even and unlabored. No needs at this time. Plan for CIWA Q4. Continue plan of care for dual diagnosis medsurg.
[2025-02-12 09:31] VITALS: BP 144/88; PULSE 90; RESP 18; TEMP 36; O2SAT 98
[2025-02-12 09:35] VITALS: RESP 18
--- NOTE | 2025-02-12 09:40 | PHA.MEDREC ---
Addendum entered by Helena Chao RPh 02/12/25 09:59: MED REC REVIEWED BY [facility] Original Note: Pharmacy Consult ? Medication Reconciliation Pharmacy reviewed med rec done by nursing. Claims match.
[2025-02-12 14:38] VITALS: BP 168/84; PULSE 73; RESP 18; TEMP 36.7; O2SAT 98
--- NOTE | 2025-02-12 14:47 | PC.NURSE ---
Nurse to nurse report given to M3.
--- NOTE | 2025-02-12 16:13 | P.HPPS_ITS ---
HPI Date of Service: 02/12/25 Chief Complaint: crisis Sources of Information: patient interviewed, chart reviewed and crisis/core team assessment reviewed HPI Subjective Notes: Rm Warning and Conditional Voluntary Narrative: Patient is a 74 year old male with hx of MDD and Alcohol use d/o who self presented to ER d/t suicidal ideation secondary to increased life stressors. Per crisis report, patient arrive to ER via ambulance with complaint of life stressors, facing eviction, financial stressors and difficulty finding another job. Patient was scheduled to go to court but felt too anxious and shaky . Patient reported anxiety, depression and suicidal ideation with no specific plan. Patient reports daily alcohol use for the past 5 months; No hx of withdrawal seizures. Denies hx of inpatient psychiatric hospitalizations, detox admissions or substance abuse programs. Denies hx of SA/SIB. He reports sleep and appetite are good. He reports increased anxiety and depression over the past year due to financial stressors. Denies HI/VH/AH. Patient reports he lives alone and is in the process of being evicted. U tox positive for marijuana and alcohol. Patient reports he drinks anywhere from 9-12 beers a day. Denies any other substance use. Patient was initially discharged from ER with outpatient follow up referrals. He later returned with a complaint of having no where to go and vague suicidal ideation. When asked if he had a plan for self harm, patient stated will I can go into the bathtub and slit my wrists. Patient's disposition then changed to dual diagnosis bed. During admission assessment, patient presents alert and oriented x3. Calm and cooperative. Patient reports feeling depressed; patient stated, I got sent home at 1st. After talking with friends I realize I really needed help. I came back and had thoughts of suicide. I was supposed to go to court but I was too nervous and I was drinking the night before. Patient reports that he has been drinking excessively due to losing his job for no good reason. Patient stated, everything is going up in [place]. I can not get a job. No one wants to hire someone who 74 years old. Patient currently denies suicidal ideation. Patient stated, H just thoughts. I would not kill myself. I feel like my depression is situational. I am not always depressed. I am usually smiling and laughing. Patient reports that he is currently not interested in psychiatric medication. Patient stated, I do not feel like I need medication. Once my situation is better I should be fine . Past Psychiatric History: denies hx of IPLOC denies hx of SA/SIB. hx of taking Prozac 10 years ago : reports made him feel flat . does not have outpatient psychiatric providers. Medical Evaluation Reviewed: Yes PMFSH Family History: denies Social History: Lives alone. . 1 adult daughter. Unemployed. Masters degree. Substance History: daily marijuana and alcohol use. Trauma History: denies Diagnostics Vital Signs (24Hr): Vital Signs - 24 hr 02/11/25 18:03 02/12/25 06:33 02/12/25 09:31 Temperature 98.7 F 98.0 F 96.8 F Pulse Rate 72 72 90 Respiratory Rate 14 16 18 Blood Pressure 167/91 H 128/81 144/88 H Pulse Oximetry 97 98 98 Oxygen Delivery Method Room Air Room Air Room Air 02/12/25 09:35 02/12/25 14:38 Temperature 98.0 F Pulse Rate 73 Respiratory Rate 18 18 Blood Pressure 168/84 H Pulse Oximetry 98 Oxygen Delivery Method Room Air BMI result Body Mass Index 20.0 Labs 02/09/25 19:45 02/09/25 19:45 Meds/Allergies Meds Home Medications ?Medication ?Instructions ?Recorded ?Confirmed ?Type No Known Home Meds 02/09/25 02/10/25 Hi story Allergies Allergies Allergy/AdvReac Type Severity Reaction Status Date / Time No Known Allergies (No Known Allergy Verified 02/09/25 18:36 Allergies*) Mental Status Exam Mental Status Exam Patient Appearance: Disheveled and Malodorous Patient Orientation: Person, Place, Time and Situation Level of Consciousness: Awake and Alert Patient Behavior: Appropriate, Cooperative and Good Eye Contact Mood Description: Depressed Affect Description: Calm Ability to Follow Directions: Good Speech Pattern: Clear Memory Description: Intact Hallucinations: None Delusions: Not Present Thought Process: Intact Thought Content: positive for Intact Assessment & Plan Assessment & Plan (1) Major depressive disorder: Status: Acute Code(s): F32.9 - Major depressive disorder, single episode, unspecified (2) Alcohol use disorder: Status: Acute Code(s): F10.90 - Alcohol use, unspecified, uncomplicated Plan Patient is a 74 year old male with hx of MDD and Alcohol use d/o who self presented to ER d/t suicidal ideation secondary to increased life stressors. Plan: CV 15 minute safety checks CIWA protocol Obtain collateral Hospitalist consult for HTN and hyperlipidemia Referral to outpatient psychiatric providers Will discuss possibly starting medications for mood again Discharge planning Patient educated on: diagnosis, medication risk/benefits and substance abuse Reason for continued inpatient stay Substantial Risk for: med/psych decompensation Statement Statement: I have reviewed the history and physical and performed a pertinent examination on my patient. No changes have occurred unless specified. If the History and Physical was not performed prior to admission, the Hospitalist's service will be consulted for completing the admission physical. Time Spent With Patient Time: Total time managing care of this patient today __60__ minutes.
--- NOTE | 2025-02-12 16:29 | PC.NURSE ---
Pt previously received Flu vaccine this year.
--- NOTE | 2025-02-12 16:36 | PC.ADMIT ---
Rosa was admitted to from [facility] on a CV for treatment of Adjustment D/Owith mixed anxiety and depression and alcohol use disorder. Prior to admission, Rosa reports he recently lost his job and got evicted from his apartment, causing him to drink an increased amount of alcohol. He reports he missed his court date for the eviction on 02/09/25 due to drinking the night prior and waking up feeling shaky and nauseous. He reports he came to the hospital that day due to not feeling well, where he reportd that he had thoughts of suicide but that he would never act on them. He states that his current depression is situational, and if it were not for his current life situation he would be happy. He reports he has a history of MDD and was treated with Prozac over 10 years ago but he states it didn't work and only made him feel emotionless. He states he has no interest in starting medications because he feels the depression will go away once his life is restored (e.g. finding a job and housing). He reports drinking 6-9 beers a day and his last drink was approximately 6 days ago. He reports daily marijuana use when he can afford it and 1.5 PPD cigarette smoker. Upon admission assessment, Rosa is calm and cooperative and very forthcoming with information. He describes his mood as tired and his affect is blunted. He maintains good eye contact and intact focus. He denies SI/HI/AVH and current anxiety. He reports being able to come to staff if these thoughts occur. He reports about a 15 lb weight loss over the last week. He reports poor appetite, especially when drinking. He has a history of HTN and HLD but has not taken his medication since October due to not being able to afford them. He reports sleep being intact. His tox screen was positive for Marijuana. His BAL was <10. He was placed on 15 minute checks for safety. His skin check was unremarkable.
[2025-02-12 19:55] VITALS: BP 149/80; PULSE 66; RESP 16; TEMP 36.7; O2SAT 98
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
[2025-02-12 23:16] VITALS: BP 176/81
[2025-02-13 00:03] VITALS: BP 136/76; PULSE 65; RESP 18; O2SAT 98
[2025-02-13 08:00] VITALS: BP 134/86; PULSE 70; RESP 20; TEMP 36.7; O2SAT 99
[2025-02-13] MEDS: Nicotine 21 MG PATCH.TD24 TRANSDERMA (08:42)
[2025-02-13 08:46] LABS: Alanine Aminotransferase 14 U/L (0-40); Albumin Level 3.7 g/dL (3.5-5.0); Alkaline Phosphatase 92 U/L (39-117); Anion Gap 11 (12-20); Aspartate Amino Transferase 27 U/L (5-37); Blood Urea Nitrogen 13 mg/dL (9-16); Calcium 9.1 mg/dL (8.4-10.2); Carbon Dioxide 29 mmol/L (22-29); Chloride 104 mmol/L (96-108); Cholesterol 238 mg/dL (<200); Creatinine Clr Calc Pharmacy 50.5; Estimated Glomerular Filt Rate > 60; HDL Cholesterol 42 mg/dL (>40); Iron 168 mcg/dL (45-160); Percent Iron Saturation 62 % (15-50); Potassium 3.6 mmol/L (3.3-5.1); Sodium 140 mmol/L (135-145); Total Iron Binding Capacity 269 mcg/dL (228-428); Total Protein 6.6 g/dL (6.5-8.0); Triglycerides 110 mg/dL (<150); Unsaturated Iron Binding 101 ug/dL
--- NOTE | 2025-02-13 09:02 | P.PNIM_ITS ---
Subjective Subjective Date of Service: 02/13/25 Interval History: Patient was seen in follow up, he is disorganized, anxious. Reports multiple social concerns. Patient reports that he has recently diagnosed with prostate cancer, he is followed by Urology group with a [facility]. Scheduled to start treatment in the near future. Patient's blood pressure stable. Review of Systems Denies any shortness of breath, chest pain, headaches, dysuria, abdominal pain or discomfort, nausea, vomiting or diarrhea. Denies fever or chills. Physical Exam 2 Exam: Exam: GENERAL APPEARANCE: ?AxOx4, patient with appropriate eye contact. Anxious HEENT: Normocephalic, atraumatic, moist mucous membranes HEART:? Normal rate and regular rhythm, normal S1/S2, no m/r/g LUNGS:? CTAB, moving air well. No crackles or wheezes are heard. ABDOMEN: ?Soft, nontender, nondistended. Positive bowel sounds x4 EXTREMITIES: ?No edema. NEUROLOGICAL: ?Nonfocal neuro exam. Alert and oriented, moving all 4 extremities. Observed to ambulate with normal gait. Skin: ?Warm and dry without rashes Vital Signs: Vital Signs: Last Vital Signs Temp 98.1 F 02/13/25 08:00 Pulse 70 02/13/25 08:00 Resp 20 02/13/25 08:00 BP 134/86 02/13/25 08:00 Pulse Ox 99 02/13/25 08:00 O2 Del Method Room Air 02/13/25 08:00 BMI result Body Mass Index 20.0 Objective Data Active Medications Acetaminophen (Acetaminophen 325 Mg Tablet) 650 mg PO Q6H PRN PRN Reason: Headache/Pain, Scale 1-10 Al Hydroxide/Mg Hydroxide (Magnesium Hydrox/Alum Hydrox 30 Ml Oral.Susp) 30 ml PO Q6H PRN PRN Reason: Heartburn/Nausea Albuterol Sulfate (Albuterol Sulfate 90 Mcg 8 Gm Inhaler) 2 puff INHALE RQ6H PRN PRN Reason: Shortness of Breath/Wheezing Amlodipine Besylate (Amlodipine Besylate 5 Mg Tablet) 5 mg PO DAILY [facility]; Protocol Last Admin: 02/13/25 08:42 Dose: 5 mg Documented By: JEISON Atorvastatin Calcium (Atorvastatin Calcium 40 Mg Tablet) 40 mg PO BEDTIME [facility] Folic Acid (Folic Acid 1 Mg Tablet) 1 mg PO DAILY [facility] Last Admin: 02/13/25 08:42 Dose: 1 mg Documented By: JEISON Hydroxyzine HCl (Hydroxyzine Hcl 25 Mg Tablet) 25 mg PO Q6H PRN PRN Reason: mild anxiety Lorazepam (Lorazepam 1 Mg Tablet) 1 mg PO Q2H PRN PRN Reason: CIWA 8-11 Lorazepam (Lorazepam 1 Mg Tablet) 2 mg PO Q2H PRN PRN Reason: CIWA 12-15 Lorazepam (Lorazepam 1 Mg Tablet) 3 mg PO Q2H PRN PRN Reason: CIWA > 15, and call Magnesium Hydroxide (Milk Of Magnesia 30 Ml Oral.Susp) 30 ml PO DAILY PRN PRN Reason: Constipation Nicotine (Nicotine 21 Mg Patch.Td24) 21 mg TRANSDERMA DAILY [facility] Last Admin: 02/13/25 08:42 Dose: 21 mg Documented By: JEISON Nicotine Polacrilex (Nicotine Polacrilex 2 Mg Gum) 4 mg BUCCAL Q2H PRN PRN Reason: Nicotine Cravings Nicotine Polacrilex (Nicotine Polacrilex Lozenge 2 Mg Lozenge) 2 mg BUCCAL Q2H PRN PRN Reason: Nicotine Cravings Thiamine HCl (Thiamine Hcl 100 Mg Tablet) 100 mg PO DAILY [facility] Last Admin: 02/13/25 08:41 Dose: 100 mg Documented By: JEISON Trazodone HCl (Trazodone Hcl 50 Mg Tablet) 50 mg PO BEDTIME MRX1 PRN PRN Reason: Insomnia Last Admin: 02/12/25 23:15 Dose: 50 mg Documented By: TANA Labs 02/09/25 19:45 02/13/25 08:03 Labs: Laboratory Results - last 24 hr 02/13/25 02/13/25 08:02 08:03 Anion Gap 11 L Estim Creat Clear Calc 50.5 Estimated GFR > 60 Random Glucose 97 Estimat Average Glucose 91 Hemoglobin A1c % 4.8 Calcium 9.1 Iron 168 H TIBC 269 % Saturation 62 H Unsat Iron Binding 101 Total Bilirubin 1.1 H AST 27 ALT 14 Alkaline Phosphatase 92 Total Protein 6.6 Albumin 3.7 Triglycerides 110 Cholesterol 238 H LDL Cholesterol, Calc 174 H HDL Cholesterol 42 TSH 0.05 L Assessment and Plan (1) HTN (hypertension): Status: Acute Plan Pt is a 74 yo male with PMH as listed below presented to the emergency room with suicide ideation. Now admitted for inpatient stabilization. Major depressive disorder/suicidal ideation/alcohol use disorder Treatment per psychiatric team HTN Continue Amlodipine 5 mgs daily Blood Pressure stable Low Na diet HLD Continue atorvastatin 40 mgs HS We will continue atorvastatin, patient has not been taking for more than 3 months Follow up outpatient labs Cardiac diet Alcohol use disorder Thiamine and Folic acid po daily No evidence of active withdrawal AST/ALT within normal limits, total bili slightly elevated at 1.1 COPD/ Tobacco use Albuterol inh prn Continue and RT, encouraged smoking cessation Prostate Cancer Recent diagnosis followed by [facility] Urology Pt states he was seen by an oncologist, plan is for pt to start treatment soon Pt does have outpaitnet colonoscopy [facility] February 19 Subclinical Hyperthyroidism via labs 2019 TSH 0.05 free T4 0.95 Continue to monitor every 3 months Thank you for allowing me to participate in the care of this patient. Will follow with you, please notify medical provider with any changes in condition or concerns. Quality Stroke Does the patient have a stroke diagnosis?: No VTE Prior VTE?: No VTE Risk Level:: Medical - low VTE Device Contraindication: Treatment Not Indicated VTE Drug Contraindication: Treatment Not Indicated
[2025-02-13 09:05] LABS: HBS Num1 0.62 mIU/mL (0-7.99); HBc Num1 0.04 S/CO (0.00-0.79); HBsAGNum1 0.40 S/CO (0.00-0.99); Hepatitis A Antibody IgM 0.14 Index (0-0.79); Hepatitis B Surface Antigen Negative (Negative); ~HepC Num1 0.07 S/CO (0.00-0.79); ~Hepatitis A Antibody IgM Nonreactive (Nonreactive); ~Hepatitis B Surface Antibody NONREACTIVE (Nonreactive); ~Hepatitis C Antibody Nonreactive (Nonreactive)
[2025-02-13 09:11] LABS: Folate 14.9 ng/mL (> or = 4.0); Vitamin B12 824 pg/mL (200-900)
[2025-02-13 09:43] LABS: Free T4 (Free Thyroxine) 0.95 ng/dL (0.71-1.85)
--- NOTE | 2025-02-13 12:27 | HO.PSYCHPN ---
Subjective Subjective Date of Service: 02/13/25 Reason For Visit: crisis Subjective Notes: Conditional Voluntary Interim History: Patient reports feeling depressed ; pt discussed multiple life stressors, such as not being employed, being evicted from his home and his health. Patient stated, I'm open to taking medications. Life is not great an I have a drinking problem. I don't know how to tackle all my problems at once . Discussed starting on Zoloft; risks/benefits reviewed, pt agreed to trial. Start: Zoloft 25mg PO daily. denies any withdrawal symptoms; DC [facility] protocol. Medication Compliance: Yes Side effects from medications: No Attending Groups: Yes Mental Status Exam Mental Status Exam Patient Appearance: Disheveled and Malodorous Patient Orientation: Person, Place, Time and Situation Level of Consciousness: Awake and Alert Patient Behavior: Appropriate, Cooperative and Good Eye Contact Mood Description: Depressed Affect Description: Depressed Ability to Follow Directions: Good Speech Pattern: Clear Memory Description: Intact Hallucinations: None Delusions: Not Present Thought Process: Intact Thought Content: positive for Intact Diagnostics Vital Signs (24Hr): Vital Signs - 24 hr 02/12/25 14:38 02/12/25 19:55 02/12/25 23:16 Temperature 98.0 F 98.0 F Pulse Rate 73 66 Respiratory Rate 18 16 Blood Pressure 168/84 H 149/80 H 176/81 H Pulse Oximetry 98 98 Oxygen Delivery Method Room Air Room Air 02/13/25 00:03 02/13/25 08:00 Temperature 98.1 F Pulse Rate 65 70 Respiratory Rate 18 20 Blood Pressure 136/76 134/86 Pulse Oximetry 98 99 Oxygen Delivery Method Room Air Room Air BMI result Body Mass Index 20.0 Labs 02/09/25 19:45 02/13/25 08:03 Labs: Laboratory Results - last 48 hr 02/13/25 02/13/25 08:02 08:03 Sodium 140 Potassium 3.6 Chloride 104 Carbon Dioxide 29 Anion Gap 11 L BUN 13 Creatinine 1.02 Estim Creat Clear Calc 50.5 Estimated GFR > 60 Random Glucose 97 Estimat Average Glucose 91 Hemoglobin A1c % 4.8 Calcium 9.1 Iron 168 H TIBC 269 % Saturation 62 H Unsat Iron Binding 101 Total Bilirubin 1.1 H AST 27 ALT 14 Alkaline Phosphatase 92 Total Protein 6.6 Albumin 3.7 Triglycerides 110 Cholesterol 238 H LDL Cholesterol, Calc 174 H HDL Cholesterol 42 Vitamin B12 824 Folate 14.9 TSH 0.05 L Free T4 0.95 Hepatitis A IgM Ab Nonreactive Hep Bs Antigen Negative Hep Bs Antibody NONREACTIVE Hep B Core Total Ab Nonreactive Hepatitis C Ab (EIA) Nonreactive Medications Medications Current Medications Acetaminophen (Acetaminophen 325 Mg Tablet) 650 mg PO Q6H PRN PRN Reason: Headache/Pain, Scale 1-10 Al Hydroxide/Mg Hydroxide (Magnesium Hydrox/Alum Hydrox 30 Ml Oral.Susp) 30 ml PO Q6H PRN PRN Reason: Heartburn/Nausea Albuterol Sulfate (Albuterol Sulfate 90 Mcg 8 Gm Inhaler) 2 puff INHALE RQ6H PRN PRN Reason: Shortness of Breath/Wheezing Amlodipine Besylate (Amlodipine Besylate 5 Mg Tablet) 5 mg PO DAILY [facility]; Protocol Last Admin: 02/13/25 08:42 Dose: 5 mg Atorvastatin Calcium (Atorvastatin Calcium 40 Mg Tablet) 40 mg PO BEDTIME [facility] Folic Acid (Folic Acid 1 Mg Tablet) 1 mg PO DAILY [facility] Last Admin: 02/13/25 08:42 Dose: 1 mg Hydroxyzine HCl (Hydroxyzine Hcl 25 Mg Tablet) 25 mg PO Q6H PRN PRN Reason: mild anxiety Lorazepam (Lorazepam 1 Mg Tablet) 1 mg PO Q2H PRN PRN Reason: CIWA 8-11 Lorazepam (Lorazepam 1 Mg Tablet) 2 mg PO Q2H PRN PRN Reason: CIWA 12-15 Lorazepam (Lorazepam 1 Mg Tablet) 3 mg PO Q2H PRN PRN Reason: CIWA > 15, and call MD Magnesium Hydroxide (Milk Of Magnesia 30 Ml Oral.Susp) 30 ml PO DAILY PRN PRN Reason: Constipation Nicotine (Nicotine 21 Mg Patch.Td24) 21 mg TRANSDERMA DAILY [facility] Last Admin: 02/13/25 08:42 Dose: 21 mg Nicotine Polacrilex (Nicotine Polacrilex 2 Mg Gum) 4 mg BUCCAL Q2H PRN PRN Reason: Nicotine Cravings Nicotine Polacrilex (Nicotine Polacrilex Lozenge 2 Mg Lozenge) 2 mg BUCCAL Q2H PRN PRN Reason: Nicotine Cravings Thiamine HCl (Thiamine Hcl 100 Mg Tablet) 100 mg PO DAILY [facility] Last Admin: 02/13/25 08:41 Dose: 100 mg Trazodone HCl (Trazodone Hcl 50 Mg Tablet) 50 mg PO BEDTIME MRX1 PRN PRN Reason: Insomnia Last Admin: 02/12/25 23:15 Dose: 50 mg Allergies Allergies Allergy/AdvReac Type Severity Reaction Status Date / Time No Known Allergies (No Known Allergy Verified 02/09/25 18:36 Allergies*) Assessment & Plan Assessment & Plan (1) Major depressive disorder: Status: Acute Code(s): F32.9 - Major depressive disorder, single episode, unspecified (2) Alcohol use disorder: Status: Acute Code(s): F10.90 - Alcohol use, unspecified, uncomplicated Plan Patient is a 74 year old male with hx of MDD and Alcohol use d/o who self presented to ER d/t suicidal ideation secondary to increased life stressors. Plan: CV 15 minute safety checks CIWA protocol Obtain collateral Hospitalist consult for HTN and hyperlipidemia Referral to outpatient psychiatric providers Will discuss possibly starting medications for mood again Discharge planning 02/13: Patient reports feeling depressed ; pt discussed multiple life stressors, such as not being employed, being evicted from his home and his health. Patient stated, I'm open to taking medications. Life is not great an I have a drinking problem. I don't know how to tackle all my problems at once . Discussed starting on Zoloft; risks/benefits reviewed, pt agreed to trial. Start: Zoloft 25mg PO daily. denies any withdrawal symptoms; DC CIWA protocol. Patient educated on: diagnosis, medication risk/benefits and therapeutic strategies Reason for continued inpatient stay Substantial Risk for: med/psych decompensation Time Spent With Patient Time: Total time managing care of this patient today _20___ minutes.
--- NOTE | 2025-02-13 14:11 | MHC.CLN ---
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
[2025-02-13 20:00] VITALS: BP 132/84; PULSE 93; RESP 16; TEMP 36.6; O2SAT 96
[2025-02-13] MEDS: Nicotine Polacrilex Lozenge 2 MG LOZENGE BUCCAL (20:19)
[2025-02-14 08:16] VITALS: BP 153/93; PULSE 86; RESP 16; TEMP 37; O2SAT 95
[2025-02-14] MEDS: Nicotine 21 MG PATCH.TD24 TRANSDERMA (08:21)
--- NOTE | 2025-02-14 12:17 | HO.PSYCHPN ---
Subjective Subjective Date of Service: 02/14/25 Reason For Visit: crisis Subjective Notes: Conditional Voluntary Interim History: Laying in bed. Patient reports feeling tired and depressed today; denies any side effects from starting Zoloft. Patient stated, my friend told me that my son is willing to help me. I'll have to call him . Patient encourgaed to get out of bed to make phone calls and attend groups. denies SI/HI/VH/AH. Continue tx plan. Medication Compliance: Yes Side effects from medications: No Attending Groups: Intermittent Mental Status Exam Mental Status Exam Patient Appearance: Disheveled Patient Orientation: Person, Place, Time and Situation Level of Consciousness: Awake and Alert Patient Behavior: Appropriate, Cooperative and Good Eye Contact Mood Description: Depressed Affect Description: Depressed Ability to Follow Directions: Good Speech Pattern: Clear Memory Description: Intact Hallucinations: None Delusions: Not Present Thought Process: Intact Thought Content: positive for Intact Diagnostics Vital Signs (24Hr): Vital Signs - 24 hr 02/13/25 20:00 02/14/25 08:16 Temperature 97.9 F 98.6 F Pulse Rate 93 86 Respiratory Rate 16 16 Blood Pressure 132/84 153/93 H Pulse Oximetry 96 95 Oxygen Delivery Method Room Air Room Air BMI result Body Mass Index 20.0 Labs 02/09/25 19:45 02/13/25 08:03 Labs: Laboratory Results - last 48 hr 02/13/25 02/13/25 08:02 08:03 Sodium 140 Potassium 3.6 Chloride 104 Carbon Dioxide 29 Anion Gap 11 L BUN 13 Creatinine 1.02 Estim Creat Clear Calc 50.5 Estimated GFR > 60 Random Glucose 97 Estimat Average Glucose 91 Hemoglobin A1c % 4.8 Calcium 9.1 Iron 168 H TIBC 269 % Saturation 62 H Unsat Iron Binding 101 Total Bilirubin 1.1 H AST 27 ALT 14 Alkaline Phosphatase 92 Total Protein 6.6 Albumin 3.7 Triglycerides 110 Cholesterol 238 H LDL Cholesterol, Calc 174 H HDL Cholesterol 42 Vitamin B12 824 Folate 14.9 TSH 0.05 L Free T4 0.95 Hepatitis A IgM Ab Nonreactive Hep Bs Antigen Negative Hep Bs Antibody NONREACTIVE Hep B Core Total Ab Nonreactive Hepatitis C Ab (EIA) Nonreactive Medications Medications Current Medications Acetaminophen (Acetaminophen 325 Mg Tablet) 650 mg PO Q6H PRN PRN Reason: Headache/Pain, Scale 1-10 Al Hydroxide/Mg Hydroxide (Magnesium Hydrox/Alum Hydrox 30 Ml Oral.Susp) 30 ml PO Q6H PRN PRN Reason: Heartburn/Nausea Albuterol Sulfate (Albuterol Sulfate 90 Mcg 8 Gm Inhaler) 2 puff INHALE RQ6H PRN PRN Reason: Shortness of Breath/Wheezing Amlodipine Besylate (Amlodipine Besylate 5 Mg Tablet) 5 mg PO DAILY [facility]; Protocol Last Admin: 02/14/25 08:22 Dose: 5 mg Atorvastatin Calcium (Atorvastatin Calcium 40 Mg Tablet) 40 mg PO BEDTIME [facility] Last Admin: 02/13/25 20:34 Dose: 40 mg Folic Acid (Folic Acid 1 Mg Tablet) 1 mg PO DAILY [facility] Last Admin: 02/14/25 08:22 Dose: 1 mg Hydroxyzine HCl (Hydroxyzine Hcl 25 Mg Tablet) 25 mg PO Q6H PRN PRN Reason: mild anxiety Last Admin: 02/14/25 11:25 Dose: 25 mg Magnesium Hydroxide (Milk Of Magnesia 30 Ml Oral.Susp) 30 ml PO DAILY PRN PRN Reason: Constipation Nicotine (Nicotine 21 Mg Patch.Td24) 21 mg TRANSDERMA DAILY [facility] Last Admin: 02/14/25 08:21 Dose: 21 mg Nicotine Polacrilex (Nicotine Polacrilex 2 Mg Gum) 4 mg BUCCAL Q2H PRN PRN Reason: Nicotine Cravings Nicotine Polacrilex (Nicotine Polacrilex Lozenge 2 Mg Lozenge) 2 mg BUCCAL Q2H PRN PRN Reason: Nicotine Cravings Last Admin: 02/13/25 20:19 Dose: 2 mg Sertraline HCl (Sertraline Hcl 25 Mg Tablet) 25 mg PO DAILY [facility] Last Admin: 02/14/25 08:22 Dose: 25 mg Trazodone HCl (Trazodone Hcl 50 Mg Tablet) 50 mg PO BEDTIME MRX1 PRN PRN Reason: Insomnia Last Admin: 02/12/25 23:15 Dose: 50 mg Allergies Allergies Allergy/AdvReac Type Severity Reaction Status Date / Time No Known Allergies (No Known Allergy Verified 02/09/25 18:36 Allergies*) Assessment & Plan Assessment & Plan (1) Major depressive disorder: Status: Acute Code(s): F32.9 - Major depressive disorder, single episode, unspecified (2) Alcohol use disorder: Status: Acute Code(s): F10.90 - Alcohol use, unspecified, uncomplicated Plan Patient is a 74 year old male with hx of MDD and Alcohol use d/o who self presented to ER d/t suicidal ideation secondary to increased life stressors. Plan: CV 15 minute safety checks [facility] protocol Obtain collateral Hospitalist consult for HTN and hyperlipidemia Referral to outpatient psychiatric providers Will discuss possibly starting medications for mood again Discharge planning 02/13: Patient reports feeling depressed ; pt discussed multiple life stressors, such as not being employed, being evicted from his home and his health. Patient stated, I'm open to taking medications. Life is not great an I have a drinking problem. I don't know how to tackle all my problems at once . Discussed starting on Zoloft; risks/benefits reviewed, pt agreed to trial. Start: Zoloft 25mg PO daily. denies any withdrawal symptoms; DC [facility] protocol. 02/14: Laying in bed. Patient reports feeling tired and depressed today; denies any side effects from starting Zoloft. Patient stated, my friend told me that my son is willing to help me. I'll have to call him . Patient encourgaed to get out of bed to make phone calls and attend groups. denies SI/HI/VH/AH. Continue tx plan. Patient educated on: diagnosis and medication risk/benefits Reason for continued inpatient stay Substantial Risk for: med/psych decompensation Time Spent With Patient Time: Total time managing care of this patient today _20___ minutes.
[2025-02-14 20:00] VITALS: BP 133/74; PULSE 65; RESP 14; TEMP 36.6; O2SAT 97
[2025-02-15 07:00] VITALS: BMI 20.2
--- NOTE | 2025-02-15 08:09 | P.PNPSI_ITS ---
Subjective Subjective Date of Service: 02/15/25 Reason For Visit: crisis Subjective Notes: Conditional Voluntary Interim History: Pt slept through the night. He endorses feeling overwhelmed with multiple stressors including financial and housing. He has insight into his drinking and how it has affected his relationships with family. describes mood as tired, stress. chronic social issues with family and financial in part related to alcohol use. We discussed MAT- agreed to start naltrexon. we also discussed increasing sertraline to 50mg po daily. VS stable. reports on and off back pain but at time of our meeting he denied pain. Later he reported to RN muscle spasm of lower back- given tizanidine 4mg po once which seemed to help. Mental Status Exam Mental Status Exam Narrative: Appearance: wearing hospital gown, fair hygiene, in NAD Behavior: calm, cooperative Psychomotor: no agitation or retardation noted Speech: clear, normal rate/rhythm/volume, spontaneous TP: linear TC: feeling tired and stressed Mood: tired and stressed Affect: congruent SI: denies HI: denies VH/AH: no signs Delusions: none Insight/judgement: fair x 2 Memory/cog: alert, oriented x 3. not formally tested. Diagnostics Vital Signs (24Hr): Vital Signs - 24 hr 02/14/25 08:16 02/14/25 20:00 Temperature 98.6 F 97.9 F Pulse Rate 86 65 Respiratory Rate 16 14 Blood Pressure 153/93 H 133/74 Pulse Oximetry 95 97 Oxygen Delivery Method Room Air Room Air BMI result Body Mass Index 20.0 Labs 02/09/25 19:45 02/13/25 08:03 Labs: Laboratory Results - last 48 hr 02/13/25 02/13/25 08:02 08:03 Sodium 140 Potassium 3.6 Chloride 104 Carbon Dioxide 29 Anion Gap 11 L BUN 13 Creatinine 1.02 Estim Creat Clear Calc 50.5 Estimated GFR > 60 Random Glucose 97 Estimat Average Glucose 91 Hemoglobin A1c % 4.8 Calcium 9.1 Iron 168 H TIBC 269 % Saturation 62 H Unsat Iron Binding 101 Total Bilirubin 1.1 H AST 27 ALT 14 Alkaline Phosphatase 92 Total Protein 6.6 Albumin 3.7 Triglycerides 110 Cholesterol 238 H LDL Cholesterol, Calc 174 H HDL Cholesterol 42 Vitamin B12 824 Folate 14.9 TSH 0.05 L Free T4 0.95 Hepatitis A IgM Ab Nonreactive Hep Bs Antigen Negative Hep Bs Antibody NONREACTIVE Hep B Core Total Ab Nonreactive Hepatitis C Ab (EIA) Nonreactive Medications Medications Current Medications Acetaminophen (Acetaminophen 325 Mg Tablet) 650 mg PO Q6H PRN PRN Reason: Headache/Pain, Scale 1-10 Last Admin: 02/14/25 17:11 Dose: 650 mg Al Hydroxide/Mg Hydroxide (Magnesium Hydrox/Alum Hydrox 30 Ml Oral.Susp) 30 ml PO Q6H PRN PRN Reason: Heartburn/Nausea Albuterol Sulfate (Albuterol Sulfate 90 Mcg 8 Gm Inhaler) 2 puff INHALE RQ6H PRN PRN Reason: Shortness of Breath/Wheezing Amlodipine Besylate (Amlodipine Besylate 5 Mg Tablet) 5 mg PO DAILY [facility]; Protocol Last Admin: 02/14/25 08:22 Dose: 5 mg Atorvastatin Calcium (Atorvastatin Calcium 40 Mg Tablet) 40 mg PO BEDTIME [facility] Last Admin: 02/14/25 21:09 Dose: 40 mg Folic Acid (Folic Acid 1 Mg Tablet) 1 mg PO DAILY [facility] Last Admin: 02/14/25 08:22 Dose: 1 mg Hydroxyzine HCl (Hydroxyzine Hcl 25 Mg Tablet) 25 mg PO Q6H PRN PRN Reason: mild anxiety Last Admin: 02/14/25 21:47 Dose: 25 mg Magnesium Hydroxide (Milk Of Magnesia 30 Ml Oral.Susp) 30 ml PO DAILY PRN PRN Reason: Constipation Nicotine (Nicotine 21 Mg Patch.Td24) 21 mg TRANSDERMA DAILY [facility] Last Admin: 02/14/25 08:21 Dose: 21 mg Nicotine Polacrilex (Nicotine Polacrilex 2 Mg Gum) 4 mg BUCCAL Q2H PRN PRN Reason: Nicotine Cravings Nicotine Polacrilex (Nicotine Polacrilex Lozenge 2 Mg Lozenge) 2 mg BUCCAL Q2H PRN PRN Reason: Nicotine Cravings Last Admin: 02/13/25 20:19 Dose: 2 mg Sertraline HCl (Sertraline Hcl 25 Mg Tablet) 25 mg PO DAILY [facility] Last Admin: 02/14/25 08:22 Dose: 25 mg Trazodone HCl (Trazodone Hcl 50 Mg Tablet) 50 mg PO BEDTIME MRX1 PRN PRN Reason: Insomnia Last Admin: 02/14/25 21:47 Dose: 50 mg Allergies Allergies Allergy/AdvReac Type Severity Reaction Status Date / Time No Known Allergies (No Known Allergy Verified 02/09/25 18:36 Allergies*) Assessment & Plan Assessment & Plan (1) Major depressive disorder: Status: Acute Code(s): F32.9 - Major depressive disorder, single episode, unspecified (2) Alcohol use disorder: Status: Acute Code(s): F10.90 - Alcohol use, unspecified, uncomplicated Plan Patient is a 74 year old male with hx of MDD and Alcohol use d/o who self presented to ER d/t suicidal ideation secondary to increased life stressors. Plan: CV 15 minute safety checks [facility] protocol Obtain collateral Hospitalist consult for HTN and hyperlipidemia Referral to outpatient psychiatric providers Will discuss possibly starting medications for mood again Discharge planning 02/13: Patient reports feeling depressed ; pt discussed multiple life stressors, such as not being employed, being evicted from his home and his health. Patient stated, I'm open to taking medications. Life is not great an I have a drinking problem. I don't know how to tackle all my problems at once . Discussed starting on Zoloft; risks/benefits reviewed, pt agreed to trial. Start: Zoloft 25mg PO daily. denies any withdrawal symptoms; DC [facility] protocol. 02/14: Laying in bed. Patient reports feeling tired and depressed today; denies any side effects from starting Zoloft. Patient stated, my friend told me that my son is willing to help me. I'll have to call him . Patient encourgaed to get out of bed to make phone calls and attend groups. denies SI/HI/VH/AH. Continue tx plan. 02/15 denies SI/HI. overwhelmed with stressors. Increase sertraline to 50mg po qhs. Started naltrexon 50mg po daily for MAT AUD. Had one time dose of tizanidine 4mg po for lower back muscle spasm with good effect. will add bid prn dose. Reason for continued inpatient stay Substantial Risk for: inability to function Time Spent With Patient Time: Total time managing care of this patient today ____ minutes.
[2025-02-15 08:15] VITALS: BP 154/80; PULSE 72; RESP 14; TEMP 36.8; O2SAT 98
[2025-02-15] MEDS: Nicotine 21 MG PATCH.TD24 TRANSDERMA (09:06)
[2025-02-15 14:50] VITALS: BP 114/75; PULSE 84; RESP 16; O2SAT 98
--- NOTE | 2025-02-15 15:06 | PC.NURSE ---
02/15/25 pt had c/o of chest and lower back tightness. VSS.provider Pancho sams
--- NOTE | 2025-02-15 16:52 | PC.NURSE ---
Pt received one time dose of Tizanidine 4mg at 1532 for chest/rib cage tightness and discomfort, pt reported 4/10 pain. Reassessed at 1653, pt reported effectiveness and pain decreased to 1/10. Pt is sitting comfortably socializing with peers.
[2025-02-15 20:00] VITALS: BP 124/74; PULSE 73; RESP 16; TEMP 36.2; O2SAT 98
[2025-02-16 08:00] VITALS: BP 124/71; PULSE 68; RESP 16; TEMP 36.8; O2SAT 96
[2025-02-16 08:29] VITALS: BP 124/71
[2025-02-16] MEDS: Nicotine 21 MG PATCH.TD24 TRANSDERMA (08:31)
--- NOTE | 2025-02-16 11:45 | P.PNPSI_ITS ---
Subjective Subjective Date of Service: 02/16/25 Reason For Visit: crisis Subjective Notes: Conditional Voluntary Interim History: Pt slept through the night. He reports he was frustrated and upset this morning because he can't believe the hospital can't find housing including [address]. He reports conditional suicidality to not finding an apartment. He reports family nor friends can help. SW reports son said pt has burned all his bridges and they are not able to help due to his ongoing alcohol use and its effect on his living situation. Medication Compliance: Yes Mental Status Exam Mental Status Exam Narrative: Appearance: wearing hospital gown, fair hygiene, in NAD Behavior: calm, cooperative Psychomotor: no agitation or retardation noted Speech: clear, normal rate/rhythm/volume, spontaneous TP: linear TC: feeling tired and stressed Mood: tired and stressed Affect: congruent SI: denies HI: denies VH/AH: no signs Delusions: none Insight/judgement: fair x 2 Memory/cog: alert, oriented x 3. not formally tested. Diagnostics Vital Signs (24Hr): Vital Signs - 24 hr 02/15/25 14:50 02/15/25 20:00 02/16/25 08:00 Temperature 97.2 F 98.2 F Pulse Rate 84 73 68 Respiratory Rate 16 16 16 Blood Pressure 114/75 124/74 124/71 Pulse Oximetry 98 98 96 Oxygen Delivery Method Room Air Room Air Room Air 02/16/25 08:29 Temperature Pulse Rate Respiratory Rate Blood Pressure 124/71 Pulse Oximetry Oxygen Delivery Method BMI result Body Mass Index 20.2 Labs 02/09/25 19:45 02/13/25 08:03 Medications Medications Current Medications Acetaminophen (Acetaminophen 325 Mg Tablet) 650 mg PO Q6H PRN PRN Reason: Headache/Pain, Scale 1-10 Last Admin: 02/15/25 21:41 Dose: 650 mg Al Hydroxide/Mg Hydroxide (Magnesium Hydrox/Alum Hydrox 30 Ml Oral.Susp) 30 ml PO Q6H PRN PRN Reason: Heartburn/Nausea Albuterol Sulfate (Albuterol Sulfate 90 Mcg 8 Gm Inhaler) 2 puff INHALE RQ6H PRN PRN Reason: Shortness of Breath/Wheezing Amlodipine Besylate (Amlodipine Besylate 5 Mg Tablet) 5 mg PO DAILY [facility]; Protocol Last Admin: 02/16/25 08:29 Dose: 5 mg Atorvastatin Calcium (Atorvastatin Calcium 40 Mg Tablet) 40 mg PO BEDTIME [facility] Last Admin: 02/15/25 20:25 Dose: 40 mg Folic Acid (Folic Acid 1 Mg Tablet) 1 mg PO DAILY [facility] Last Admin: 02/16/25 08:29 Dose: 1 mg Hydroxyzine HCl (Hydroxyzine Hcl 25 Mg Tablet) 25 mg PO Q6H PRN PRN Reason: mild anxiety Last Admin: 02/14/25 21:47 Dose: 25 mg Magnesium Hydroxide (Milk Of Magnesia 30 Ml Oral.Susp) 30 ml PO DAILY PRN PRN Reason: Constipation Naltrexone HCl (Naltrexone Hcl 50 Mg Tablet) 50 mg PO DAILY [facility] Last Admin: 02/16/25 08:28 Dose: 50 mg Nicotine (Nicotine 21 Mg Patch.Td24) 21 mg TRANSDERMA DAILY [facility] Last Admin: 02/16/25 08:31 Dose: 21 mg Nicotine Polacrilex (Nicotine Polacrilex 2 Mg Gum) 4 mg BUCCAL Q2H PRN PRN Reason: Nicotine Cravings Nicotine Polacrilex (Nicotine Polacrilex Lozenge 2 Mg Lozenge) 2 mg BUCCAL Q2H PRN PRN Reason: Nicotine Cravings Last Admin: 02/13/25 20:19 Dose: 2 mg Sertraline HCl (Sertraline Hcl 50 Mg Tablet) 50 mg PO DAILY [facility] Last Admin: 02/16/25 08:28 Dose: 50 mg Tizanidine HCl (Tizanidine Hcl 4 Mg Tablet) 4 mg PO TID PRN PRN Reason: muscle spasm Trazodone HCl (Trazodone Hcl 50 Mg Tablet) 50 mg PO BEDTIME MRX1 PRN PRN Reason: Insomnia Last Admin: 02/15/25 20:25 Dose: 50 mg Allergies Allergies Allergy/AdvReac Type Severity Reaction Status Date / Time No Known Allergies (No Known Allergy Verified 02/09/25 18:36 Allergies*) Assessment & Plan Assessment & Plan (1) Major depressive disorder: Status: Acute Code(s): F32.9 - Major depressive disorder, single episode, unspecified (2) Alcohol use disorder: Status: Acute Code(s): F10.90 - Alcohol use, unspecified, uncomplicated Plan Patient is a 74 year old male with hx of MDD and Alcohol use d/o who self presented to ER d/t suicidal ideation secondary to increased life stressors. Plan: CV 15 minute safety checks [facility] protocol Obtain collateral Hospitalist consult for HTN and hyperlipidemia Referral to outpatient psychiatric providers Will discuss possibly starting medications for mood again Discharge planning 02/13: Patient reports feeling depressed ; pt discussed multiple life stressors, such as not being employed, being evicted from his home and his health. Patient stated, I'm open to taking medications. Life is not great an I have a drinking problem. I don't know how to tackle all my problems at once . Discussed starting on Zoloft; risks/benefits reviewed, pt agreed to trial. Start: Zoloft 25mg PO daily. denies any withdrawal symptoms; DC [facility] protocol. 02/14: Laying in bed. Patient reports feeling tired and depressed today; denies any side effects from starting Zoloft. Patient stated, my friend told me that my son is willing to help me. I'll have to call him . Patient encourgaed to get out of bed to make phone calls and attend groups. denies SI/HI/VH/AH. Continue tx plan. 02/15 denies SI/HI. overwhelmed with stressors. Increase sertraline to 50mg po qhs. Started naltrexon 50mg po daily for MAT AUD. Had one time dose of tizanidine 4mg po for lower back muscle spasm with good effect. will add bid prn dose. 02/16 no side effects with current medications, started naltrexon. upset about his housing situation. conditional suicidality but pt presents future oriented. Reason for continued inpatient stay Substantial Risk for: inability to function Time Spent With Patient Time: Total time managing care of this patient today ____ minutes.
[2025-02-16 20:00] VITALS: BP 122/74; PULSE 85; RESP 16; TEMP 36.4; O2SAT 94
--- NOTE | 2025-02-16 21:41 | PC.NURSE ---
Rosa sat with [facility] [place] [facility] and left a message to cancel his upcoming colonoscopy appointment.
[2025-02-17 07:45] VITALS: BP 123/63; PULSE 70; RESP 16; TEMP 37; O2SAT 96
[2025-02-17] MEDS: Nicotine 21 MG PATCH.TD24 TRANSDERMA (08:32)
[2025-02-17] MEDS: Milk of Magnesia 30 ML ORAL.SUSP PO (13:24)
--- NOTE | 2025-02-17 14:13 | P.PNPSI_ITS ---
Subjective Subjective Date of Service: 02/17/25 Reason For Visit: crisis Subjective Notes: Conditional Voluntary Interim History: Pt slept through the night. He upset about hospital not finding housing. offended because he was offered rest home referral- which would include pt providing most of SS check for board and room with $70 left a month. Pt is social with peers, seen smiling and conversing without issues. conditional suicidality to hospital finding [address]. no aggression towards self or others. taking medications. Mental Status Exam Mental Status Exam Narrative: Appearance: wearing hospital gown, fair hygiene, in NAD Behavior: calm, cooperative Psychomotor: no agitation or retardation noted Speech: clear, normal rate/rhythm/volume, spontaneous TP: linear TC: worried about housing Mood: great Affect: irritable. SI: denies HI: denies VH/AH: no signs Delusions: none Insight/judgment: poor x 2 Memory/cog: alert, oriented x 3. not formally tested. Diagnostics Vital Signs (24Hr): Vital Signs - 24 hr 02/16/25 20:00 02/17/25 07:45 Temperature 97.6 F 98.6 F Pulse Rate 85 70 Respiratory Rate 16 16 Blood Pressure 122/74 123/63 Pulse Oximetry 94 96 Oxygen Delivery Method Room Air Room Air BMI result Body Mass Index 20.2 Labs 02/09/25 19:45 02/13/25 08:03 Medications Medications Current Medications Acetaminophen (Acetaminophen 325 Mg Tablet) 650 mg PO Q6H PRN PRN Reason: Headache/Pain, Scale 1-10 Last Admin: 02/15/25 21:41 Dose: 650 mg Al Hydroxide/Mg Hydroxide (Magnesium Hydrox/Alum Hydrox 30 Ml Oral.Susp) 30 ml PO Q6H PRN PRN Reason: Heartburn/Nausea Albuterol Sulfate (Albuterol Sulfate 90 Mcg 8 Gm Inhaler) 2 puff INHALE RQ6H PRN PRN Reason: Shortness of Breath/Wheezing Amlodipine Besylate (Amlodipine Besylate 5 Mg Tablet) 5 mg PO DAILY [facility]; Protocol Last Admin: 02/17/25 08:33 Dose: 5 mg Atorvastatin Calcium (Atorvastatin Calcium 40 Mg Tablet) 40 mg PO BEDTIME [facility] Last Admin: 02/16/25 20:47 Dose: 40 mg Folic Acid (Folic Acid 1 Mg Tablet) 1 mg PO DAILY [facility] Last Admin: 02/17/25 08:33 Dose: 1 mg Hydroxyzine HCl (Hydroxyzine Hcl 25 Mg Tablet) 25 mg PO Q6H PRN PRN Reason: mild anxiety Last Admin: 02/16/25 20:47 Dose: 25 mg Magnesium Hydroxide (Milk Of Magnesia 30 Ml Oral.Susp) 30 ml PO DAILY PRN PRN Reason: Constipation Last Admin: 02/17/25 13:24 Dose: 30 ml Naltrexone HCl (Naltrexone Hcl 50 Mg Tablet) 50 mg PO DAILY [facility] Last Admin: 02/17/25 08:33 Dose: 50 mg Nicotine (Nicotine 21 Mg Patch.Td24) 21 mg TRANSDERMA DAILY [facility] Last Admin: 02/17/25 08:32 Dose: 21 mg Nicotine Polacrilex (Nicotine Polacrilex 2 Mg Gum) 4 mg BUCCAL Q2H PRN PRN Reason: Nicotine Cravings Nicotine Polacrilex (Nicotine Polacrilex Lozenge 2 Mg Lozenge) 2 mg BUCCAL Q2H PRN PRN Reason: Nicotine Cravings Last Admin: 02/13/25 20:19 Dose: 2 mg Sertraline HCl (Sertraline Hcl 50 Mg Tablet) 50 mg PO DAILY [facility] Last Admin: 02/17/25 08:33 Dose: 50 mg Tizanidine HCl (Tizanidine Hcl 4 Mg Tablet) 4 mg PO TID PRN PRN Reason: muscle spasm Trazodone HCl (Trazodone Hcl 50 Mg Tablet) 50 mg PO BEDTIME MRX1 PRN PRN Reason: Insomnia Last Admin: 02/16/25 20:47 Dose: 50 mg Allergies Allergies Allergy/AdvReac Type Severity Reaction Status Date / Time No Known Allergies (No Known Allergy Verified 02/09/25 18:36 Allergies*) Assessment & Plan Assessment & Plan (1) Major depressive disorder: Status: Acute Code(s): F32.9 - Major depressive disorder, single episode, unspecified (2) Alcohol use disorder: Status: Acute Code(s): F10.90 - Alcohol use, unspecified, uncomplicated Plan Patient is a 74 year old male with hx of MDD and Alcohol use d/o who self presented to ER d/t suicidal ideation secondary to increased life stressors. Plan: CV 15 minute safety checks [facility] protocol Obtain collateral Hospitalist consult for HTN and hyperlipidemia Referral to outpatient psychiatric providers Will discuss possibly starting medications for mood again Discharge planning 02/13: Patient reports feeling depressed ; pt discussed multiple life stressors, such as not being employed, being evicted from his home and his health. Patient stated, I'm open to taking medications. Life is not great an I have a drinking problem. I don't know how to tackle all my problems at once . Discussed starting on Zoloft; risks/benefits reviewed, pt agreed to trial. Start: Zoloft 25mg PO daily. denies any withdrawal symptoms; DC [facility] protocol. 02/14: Laying in bed. Patient reports feeling tired and depressed today; denies any side effects from starting Zoloft. Patient stated, my friend told me that my son is willing to help me. I'll have to call him . Patient encourgaed to get out of bed to make phone calls and attend groups. denies SI/HI/VH/AH. Continue tx plan. 02/15 denies SI/HI. overwhelmed with stressors. Increase sertraline to 50mg po qhs. Started naltrexon 50mg po daily for MAT AUD. Had one time dose of tizanidine 4mg po for lower back muscle spasm with good effect. will add bid prn dose. 02/16 no side effects with current medications, started naltrexon. upset about his housing situation. conditional suicidality but pt presents future oriented. 02/17 continue tx. no SI/HI. conditional SI if hospital does not find [address]. otherwise presents with brighter affect and socializing on the unit. Reason for continued inpatient stay Substantial Risk for: inability to function Time Spent With Patient Time: Total time managing care of this patient today ____ minutes.
[2025-02-17 20:00] VITALS: BP 140/84; PULSE 80; RESP 17; TEMP 36.6; O2SAT 99
[2025-02-18 08:00] VITALS: BP 143/74; PULSE 70; RESP 20; TEMP 36.8; O2SAT 95
[2025-02-18] MEDS: Nicotine 21 MG PATCH.TD24 TRANSDERMA (08:55)
[2025-02-18 19:43] VITALS: BP 162/89; PULSE 72; RESP 16; TEMP 36.3; O2SAT 96
--- NOTE | 2025-02-18 20:39 | HO.PSYCHPN ---
Subjective Subjective Date of Service: 02/18/25 Reason For Visit: crisis Subjective Notes: Conditional Voluntary Interim History: Pt slept 5 hrs. Pt reports he has been calling friends to ask for help moving stuff out of his apartment. reports he would not go to rest home. reminded alternative is [facility]. visible on the unit, social with peers. no aggression towards self or others. VS stable. Review of Systems Review of Systems Denies any shortness of breath, chest pain, headaches, dysuria, abdominal pain or discomfort, nausea, vomiting or diarrhea. Denies fever or chills. Yes all other systems are reviewed and are negative Constitutional: Denies fatigue and Denies fever(s) Cardiovascular: Denies chest pain and Denies dyspnea Respiratory: Denies cough and Denies dyspnea Gastrointestinal: Denies abdominal pain, Denies nausea and Denies vomiting Endocrine: Denies fatigue Mental Status Exam Mental Status Exam Narrative: Appearance: wearing hospital gown, fair hygiene, in NAD Behavior: calm, cooperative Psychomotor: no agitation or retardation noted Speech: clear, normal rate/rhythm/volume, spontaneous TP: linear TC: worried about housing Mood: great Affect: irritable. SI: denies HI: denies VH/AH: no signs Delusions: none Insight/judgment: poor x 2 Memory/cog: alert, oriented x 3. not formally tested. Diagnostics Vital Signs (24Hr): Vital Signs - 24 hr 02/18/25 08:00 02/18/25 19:43 Temperature 98.2 F 97.4 F Pulse Rate 70 72 Respiratory Rate 20 16 Blood Pressure 143/74 H 162/89 H Pulse Oximetry 95 96 Oxygen Delivery Method Room Air Room Air BMI result Body Mass Index 20.2 Labs 02/09/25 19:45 02/13/25 08:03 Medications Medications Current Medications Acetaminophen (Acetaminophen 325 Mg Tablet) 650 mg PO Q6H PRN PRN Reason: Headache/Pain, Scale 1-10 Last Admin: 02/18/25 14:05 Dose: 650 mg Al Hydroxide/Mg Hydroxide (Magnesium Hydrox/Alum Hydrox 30 Ml Oral.Susp) 30 ml PO Q6H PRN PRN Reason: Heartburn/Nausea Albuterol Sulfate (Albuterol Sulfate 90 Mcg 8 Gm Inhaler) 2 puff INHALE RQ6H PRN PRN Reason: Shortness of Breath/Wheezing Amlodipine Besylate (Amlodipine Besylate 5 Mg Tablet) 5 mg PO DAILY [facility]; Protocol Last Admin: 02/18/25 08:54 Dose: 5 mg Atorvastatin Calcium (Atorvastatin Calcium 40 Mg Tablet) 40 mg PO BEDTIME [facility] Last Admin: 02/17/25 20:58 Dose: 40 mg Folic Acid (Folic Acid 1 Mg Tablet) 1 mg PO DAILY [facility] Last Admin: 02/18/25 08:54 Dose: 1 mg Hydroxyzine HCl (Hydroxyzine Hcl 25 Mg Tablet) 25 mg PO Q6H PRN PRN Reason: mild anxiety Last Admin: 02/17/25 20:59 Dose: 25 mg Magnesium Hydroxide (Milk Of Magnesia 30 Ml Oral.Susp) 30 ml PO DAILY PRN PRN Reason: Constipation Last Admin: 02/17/25 13:24 Dose: 30 ml Naltrexone HCl (Naltrexone Hcl 50 Mg Tablet) 50 mg PO DAILY [facility] Last Admin: 02/18/25 08:54 Dose: 50 mg Nicotine (Nicotine 21 Mg Patch.Td24) 21 mg TRANSDERMA DAILY [facility] Last Admin: 02/18/25 08:55 Dose: 21 mg Nicotine Polacrilex (Nicotine Polacrilex 2 Mg Gum) 4 mg BUCCAL Q2H PRN PRN Reason: Nicotine Cravings Nicotine Polacrilex (Nicotine Polacrilex Lozenge 2 Mg Lozenge) 2 mg BUCCAL Q2H PRN PRN Reason: Nicotine Cravings Last Admin: 02/13/25 20:19 Dose: 2 mg Sertraline HCl (Sertraline Hcl 50 Mg Tablet) 50 mg PO DAILY [facility] Last Admin: 02/18/25 08:55 Dose: 50 mg Tizanidine HCl (Tizanidine Hcl 4 Mg Tablet) 4 mg PO TID PRN PRN Reason: muscle spasm Last Admin: 02/18/25 13:04 Dose: 4 mg Trazodone HCl (Trazodone Hcl 50 Mg Tablet) 50 mg PO BEDTIME MRX1 PRN PRN Reason: Insomnia Last Admin: 02/18/25 00:55 Dose: 50 mg Allergies Allergies Allergy/AdvReac Type Severity Reaction Status Date / Time No Known Allergies (No Known Allergy Verified 02/09/25 18:36 Allergies*) Assessment & Plan Assessment & Plan (1) Major depressive disorder: Status: Acute Code(s): F32.9 - Major depressive disorder, single episode, unspecified (2) Alcohol use disorder: Status: Acute Code(s): F10.90 - Alcohol use, unspecified, uncomplicated Plan Patient is a 74 year old male with hx of MDD and Alcohol use d/o who self presented to ER d/t suicidal ideation secondary to increased life stressors. Plan: CV 15 minute safety checks [facility] protocol Obtain collateral Hospitalist consult for HTN and hyperlipidemia Referral to outpatient psychiatric providers Will discuss possibly starting medications for mood again Discharge planning 02/13: Patient reports feeling depressed ; pt discussed multiple life stressors, such as not being employed, being evicted from his home and his health. Patient stated, I'm open to taking medications. Life is not great an I have a drinking problem. I don't know how to tackle all my problems at once . Discussed starting on Zoloft; risks/benefits reviewed, pt agreed to trial. Start: Zoloft 25mg PO daily. denies any withdrawal symptoms; DC [facility] protocol. 02/14: Laying in bed. Patient reports feeling tired and depressed today; denies any side effects from starting Zoloft. Patient stated, my friend told me that my son is willing to help me. I'll have to call him . Patient encourgaed to get out of bed to make phone calls and attend groups. denies SI/HI/VH/AH. Continue tx plan. 02/15 denies SI/HI. overwhelmed with stressors. Increase sertraline to 50mg po qhs. Started naltrexon 50mg po daily for MAT AUD. Had one time dose of tizanidine 4mg po for lower back muscle spasm with good effect. will add bid prn dose. 02/16 no side effects with current medications, started naltrexon. upset about his housing situation. conditional suicidality but pt presents future oriented. 02/17 continue tx. no SI/HI. conditional SI if hospital does not find sect 8. otherwise presents with brighter affect and socializing on the unit. 02/18 continue tx. No SI/HI. visible, social with peers, more proactive about his housing situation and calling friends. reminded hospital not able to facilitate section 8 housing. Reason for continued inpatient stay Substantial Risk for: inability to function Time Spent With Patient Time: Total time managing care of this patient today ____ minutes.
[2025-02-18 21:10] VITALS: BP 120/90
[2025-02-19 08:00] VITALS: BP 132/82; PULSE 85; RESP 16; O2SAT 98
[2025-02-19 08:29] VITALS: BP 132/82
[2025-02-19] MEDS: Nicotine 21 MG PATCH.TD24 TRANSDERMA (08:31)
--- NOTE | 2025-02-19 14:44 | HO.PSYCHPN ---
Subjective Subjective Date of Service: 02/19/25 Reason For Visit: crisis Subjective Notes: Conditional Voluntary Interim History: Active on unit. social with peers. observed making multiple phone calls. Patient focused on housing and eviction; patient was encouraged to reach out to friends and family to see if he can stay with them for a few days. Patient reports he does not want to reach out to anyone because everyone is too busy . He did report, his son has his vehicle at his home. T/W and social services coordinator suggested patient sell some of his belongings to be able to afford housing; pt declined and stated, I'm trying to get a storage unit for all my belongings . Patient reports he would be suicidal if he had to go to the streets but then retracted his statement and stated, I wouldn't kill myself because I want to see my kids and grandchildren grow up . Passive SI. denies HI/VH/AH. Discussed discharging this week; pt upset d/t social work not being able to help with housing. continue tx plan. Medication Compliance: Yes Side effects from medications: No Attending Groups: Yes Mental Status Exam Mental Status Exam Narrative: Pt is alert and oriented; behavior is cooperative and calm; dressed in casual attire; mood is described as stressed ; eye contact appropriate; Speech is normal rate, volume and not pressured; thought process is organized; Thought content is on housing; denies HI/VH/AH. Passive SI with no plan. Diagnostics Vital Signs (24Hr): Vital Signs - 24 hr 02/18/25 19:43 02/18/25 21:10 02/19/25 08:00 Temperature 97.4 F Pulse Rate 72 85 Respiratory Rate 16 16 Blood Pressure 162/89 H 120/90 H 132/82 Pulse Oximetry 96 98 Oxygen Delivery Method Room Air Room Air 02/19/25 08:29 Temperature Pulse Rate Respiratory Rate Blood Pressure 132/82 Pulse Oximetry Oxygen Delivery Method BMI result Body Mass Index 20.2 Labs 02/09/25 19:45 02/13/25 08:03 Medications Medications Current Medications Acetaminophen (Acetaminophen 325 Mg Tablet) 650 mg PO Q6H PRN PRN Reason: Headache/Pain, Scale 1-10 Last Admin: 02/19/25 11:57 Dose: 650 mg Al Hydroxide/Mg Hydroxide (Magnesium Hydrox/Alum Hydrox 30 Ml Oral.Susp) 30 ml PO Q6H PRN PRN Reason: Heartburn/Nausea Albuterol Sulfate (Albuterol Sulfate 90 Mcg 8 Gm Inhaler) 2 puff INHALE RQ6H PRN PRN Reason: Shortness of Breath/Wheezing Amlodipine Besylate (Amlodipine Besylate 5 Mg Tablet) 5 mg PO DAILY [facility] BEDS AT [facility]; Protocol Last Admin: 02/19/25 08:29 Dose: 5 mg Atorvastatin Calcium (Atorvastatin Calcium 40 Mg Tablet) 40 mg PO BEDTIME [facility]S [facility] 234 BEDS AT THE [facility] Last Admin: 02/18/25 21:13 Dose: 40 mg Folic Acid (Folic Acid 1 Mg Tablet) 1 mg PO DAILY [facility] 234 BEDS AT THE [facility] Last Admin: 02/19/25 08:29 Dose: 1 mg Hydroxyzine HCl (Hydroxyzine Hcl 25 Mg Tablet) 25 mg PO Q6H PRN PRN Reason: mild anxiety Last Admin: 02/18/25 21:13 Dose: 25 mg Magnesium Hydroxide (Milk Of Magnesia 30 Ml Oral.Susp) 30 ml PO DAILY PRN PRN Reason: Constipation Last Admin: 02/17/25 13:24 Dose: 30 ml Naltrexone HCl (Naltrexone Hcl 50 Mg Tablet) 50 mg PO DAILY [facility] 234 BEDS AT THE [facility] Last Admin: 02/19/25 08:28 Dose: 50 mg Nicotine (Nicotine 21 Mg Patch.Td24) 21 mg TRANSDERMA DAILY [facility] 234 BEDS AT THE [facility] Last Admin: 02/19/25 08:31 Dose: 21 mg Nicotine Polacrilex (Nicotine Polacrilex 2 Mg Gum) 4 mg BUCCAL Q2H PRN PRN Reason: Nicotine Cravings Nicotine Polacrilex (Nicotine Polacrilex Lozenge 2 Mg Lozenge) 2 mg BUCCAL Q2H PRN PRN Reason: Nicotine Cravings Last Admin: 02/13/25 20:19 Dose: 2 mg Sertraline HCl (Sertraline Hcl 50 Mg Tablet) 50 mg PO DAILY [facility] 234 BEDS AT THE [facility] Last Admin: 02/19/25 08:29 Dose: 50 mg Tizanidine HCl (Tizanidine Hcl 4 Mg Tablet) 4 mg PO TID PRN PRN Reason: muscle spasm Last Admin: 02/18/25 23:21 Dose: 4 mg Trazodone HCl (Trazodone Hcl 50 Mg Tablet) 50 mg PO BEDTIME MRX1 PRN PRN Reason: Insomnia Last Admin: 02/18/25 21:13 Dose: 50 mg Allergies Allergies Allergy/AdvReac Type Severity Reaction Status Date / Time No Known Allergies (No Known Allergy Verified 02/09/25 18:36 Allergies*) Assessment & Plan Assessment & Plan (1) Major depressive disorder: Status: Acute Code(s): F32.9 - Major depressive disorder, single episode, unspecified (2) Alcohol use disorder: Status: Acute Code(s): F10.90 - Alcohol use, unspecified, uncomplicated Plan Patient is a 74 year old male with hx of MDD and Alcohol use d/o who self presented to ER d/t suicidal ideation secondary to increased life stressors. Plan: CV 15 minute safety checks [facility] protocol Obtain collateral Hospitalist consult for HTN and hyperlipidemia Referral to outpatient psychiatric providers Will discuss possibly starting medications for mood again Discharge planning 02/13: Patient reports feeling depressed ; pt discussed multiple life stressors, such as not being employed, being evicted from his home and his health. Patient stated, I'm open to taking medications. Life is not great an I have a drinking problem. I don't know how to tackle all my problems at once . Discussed starting on Zoloft; risks/benefits reviewed, pt agreed to trial. Start: Zoloft 25mg PO daily. denies any withdrawal symptoms; DC [facility] protocol. 02/14: Laying in bed. Patient reports feeling tired and depressed today; denies any side effects from starting Zoloft. Patient stated, my friend told me that my son is willing to help me. I'll have to call him . Patient encourgaed to get out of bed to make phone calls and attend groups. denies SI/HI/VH/AH. Continue tx plan. 02/15 denies SI/HI. overwhelmed with stressors. Increase sertraline to 50mg po qhs. Started naltrexon 50mg po daily for MAT AUD. Had one time dose of tizanidine 4mg po for lower back muscle spasm with good effect. will add bid prn dose. 02/16 no side effects with current medications, started naltrexon. upset about his housing situation. conditional suicidality but pt presents future oriented. 02/17 continue tx. no SI/HI. conditional SI if hospital does not find sect 8. otherwise presents with brighter affect and socializing on the unit. 02/18 continue tx. No SI/HI. visible, social with peers, more proactive about his housing situation and calling friends. reminded hospital not able to facilitate section 8 housing. 02/19:Active on unit. social with peers. observed making multiple phone calls. Patient focused on housing and eviction; patient was encouraged to reach out to friends and family to see if he can stay with them for a few days. Patient reports he does not want to reach out to anyone because everyone is too busy . He did report, his son has his vehicle at his home. T/W and social services coordinator suggested patient sell some of his belongings to be able to afford housing; pt declined and stated, I'm trying to get a storage unit for all my belongings . Patient reports he would be suicidal if he had to go to the streets but then retracted his statement and stated, I wouldn't kill myself because I want to see my kids and grandchildren grow up . Passive SI. denies HI/VH/AH. Discussed discharging this week; pt upset d/t social work not being able to help with housing. continue tx plan. Patient educated on: diagnosis, medication risk/benefits and therapeutic strategies Reason for continued inpatient stay Substantial Risk for: med/psych decompensation Time Spent With Patient Time: Total time managing care of this patient today _20___ minutes.
[2025-02-19 19:30] VITALS: BP 135/85; PULSE 62; RESP 18; TEMP 35.7; O2SAT 100
[2025-02-20 08:00] VITALS: BP 120/80; PULSE 84; RESP 18; TEMP 36.7; O2SAT 96
[2025-02-20] MEDS: Nicotine 21 MG PATCH.TD24 TRANSDERMA (08:57)
[2025-02-20 08:58] VITALS: BP 120/78
--- NOTE | 2025-02-20 15:27 | P.PNPSI_ITS ---
Subjective Subjective Date of Service: 02/20/25 Reason For Visit: crisis Subjective Notes: Conditional Voluntary Interim History: Active on unit. social with peers. Patient reports he is doing fine today. pt reports he is concerned d/t feeling like he can't walk and might need to go to the emergency room because of hip pain ; patient was observed walking independently with a steady gait since admission. Patient reports he has been calling his various outpatient medical providers for appointments. When T/W and criminal justice social worker asked pt regarding where he plans on going on discharge; pt stated, My son and friend won't let me stay there. My son told me to stay in my car in the [employer] parking lot . T/W suggested for pt to try to go to a detention near by; pt stated, That's not the crowd I run with. I'm not going to a detention . Patient then began to discuss how he does not want to go to rest home because I don't want to live in a one bedroom without my things . Patient reports his son and friend went to his apartment to gather his guitars and other belongings . When suggested again to try to sell some items to help him financially; pt declined. Future oriented. Patient discussed wanting to rebuild his relationship with his daughter to be able to see his grand-daughter before she turns into a teenager . denies SI/HI/AH. Patient reports seeing an illusion today but did not go into detail; was not observed responding to internal stimuli. Patient upset regarding not obtaining housing while in the hospital; pt stated, you guys don't do anything here but give out coloring books with no crayons . pick pack worker explained what is offered for resources through the hospital. Medication Compliance: Yes Side effects from medications: No Attending Groups: Yes Mental Status Exam Mental Status Exam Narrative: Pt is alert and oriented; behavior is cooperative and calm; dressed in casual attire; mood is described as fine ; eye contact appropriate; Speech is normal rate, volume and not pressured; thought process is organized; Thought content is on tx/discharge; denies SI/HI/VH/AH. Diagnostics Vital Signs (24Hr): Vital Signs - 24 hr 02/19/25 19:30 02/20/25 08:00 02/20/25 08:58 Temperature 96.2 F L 98.1 F Pulse Rate 62 84 Respiratory Rate 18 18 Blood Pressure 135/85 120/80 120/78 Pulse Oximetry 100 96 Oxygen Delivery Method Room Air BMI result Body Mass Index 20.2 Labs 02/09/25 19:45 02/13/25 08:03 Medications Medications Current Medications Acetaminophen (Acetaminophen 325 Mg Tablet) 650 mg PO Q6H PRN PRN Reason: Headache/Pain, Scale 1-10 Last Admin: 02/20/25 09:17 Dose: 650 mg Al Hydroxide/Mg Hydroxide (Magnesium Hydrox/Alum Hydrox 30 Ml Oral.Susp) 30 ml PO Q6H PRN PRN Reason: Heartburn/Nausea Albuterol Sulfate (Albuterol Sulfate 90 Mcg 8 Gm Inhaler) 2 puff INHALE RQ6H PRN PRN Reason: Shortness of Breath/Wheezing Amlodipine Besylate (Amlodipine Besylate 5 Mg Tablet) 5 mg PO DAILY [facility]; Protocol Last Admin: 02/20/25 08:58 Dose: 5 mg Atorvastatin Calcium (Atorvastatin Calcium 40 Mg Tablet) 40 mg PO BEDTIME [facility] Last Admin: 02/19/25 20:45 Dose: 40 mg Folic Acid (Folic Acid 1 Mg Tablet) 1 mg PO DAILY [facility] Last Admin: 02/20/25 08:58 Dose: 1 mg Hydroxyzine HCl (Hydroxyzine Hcl 25 Mg Tablet) 25 mg PO Q6H PRN PRN Reason: mild anxiety Last Admin: 02/19/25 20:47 Dose: 25 mg Magnesium Hydroxide (Milk Of Magnesia 30 Ml Oral.Susp) 30 ml PO DAILY PRN PRN Reason: Constipation Last Admin: 02/17/25 13:24 Dose: 30 ml Naltrexone HCl (Naltrexone Hcl 50 Mg Tablet) 50 mg PO DAILY [facility] Last Admin: 02/20/25 08:58 Dose: 50 mg Nicotine (Nicotine 21 Mg Patch.Td24) 21 mg TRANSDERMA DAILY [facility] Last Admin: 02/20/25 08:57 Dose: 21 mg Nicotine Polacrilex (Nicotine Polacrilex 2 Mg Gum) 4 mg BUCCAL Q2H PRN PRN Reason: Nicotine Cravings Nicotine Polacrilex (Nicotine Polacrilex Lozenge 2 Mg Lozenge) 2 mg BUCCAL Q2H PRN PRN Reason: Nicotine Cravings Last Admin: 02/13/25 20:19 Dose: 2 mg Sertraline HCl (Sertraline Hcl 50 Mg Tablet) 50 mg PO DAILY [facility] Last Admin: 02/20/25 08:58 Dose: 50 mg Tizanidine HCl (Tizanidine Hcl 4 Mg Tablet) 4 mg PO TID PRN PRN Reason: muscle spasm Last Admin: 02/20/25 09:17 Dose: 4 mg Trazodone HCl (Trazodone Hcl 50 Mg Tablet) 50 mg PO BEDTIME MRX1 PRN PRN Reason: Insomnia Last Admin: 02/19/25 22:12 Dose: 50 mg Allergies Allergies Allergy/AdvReac Type Severity Reaction Status Date / Time No Known Allergies (No Known Allergy Verified 02/09/25 18:36 Allergies*) Assessment & Plan Assessment & Plan (1) Major depressive disorder: Status: Acute Code(s): F32.9 - Major depressive disorder, single episode, unspecified (2) Alcohol use disorder: Status: Acute Code(s): F10.90 - Alcohol use, unspecified, uncomplicated Plan Patient is a 74 year old male with hx of MDD and Alcohol use d/o who self presented to ER d/t suicidal ideation secondary to increased life stressors. Plan: CV 15 minute safety checks [facility] protocol Obtain collateral Hospitalist consult for HTN and hyperlipidemia Referral to outpatient psychiatric providers Will discuss possibly starting medications for mood again Discharge planning 02/13: Patient reports feeling depressed ; pt discussed multiple life stressors, such as not being employed, being evicted from his home and his health. Patient stated, I'm open to taking medications. Life is not great an I have a drinking problem. I don't know how to tackle all my problems at once . Discussed starting on Zoloft; risks/benefits reviewed, pt agreed to trial. Start: Zoloft 25mg PO daily. denies any withdrawal symptoms; DC [facility] protocol. 02/14: Laying in bed. Patient reports feeling tired and depressed today; denies any side effects from starting Zoloft. Patient stated, my friend told me that my son is willing to help me. I'll have to call him . Patient encourgaed to get out of bed to make phone calls and attend groups. denies SI/HI/VH/AH. Continue tx plan. 02/15 denies SI/HI. overwhelmed with stressors. Increase sertraline to 50mg po qhs. Started naltrexon 50mg po daily for MAT AUD. Had one time dose of tizanidine 4mg po for lower back muscle spasm with good effect. will add bid prn dose. 02/16 no side effects with current medications, started naltrexon. upset about his housing situation. conditional suicidality but pt presents future oriented. 02/17 continue tx. no SI/HI. conditional SI if hospital does not find sect 8. otherwise presents with brighter affect and socializing on the unit. 02/18 continue tx. No SI/HI. visible, social with peers, more proactive about his housing situation and calling friends. reminded hospital not able to facilitate section 8 housing. 02/19:Active on unit. social with peers. observed making multiple phone calls. Patient focused on housing and eviction; patient was encouraged to reach out to friends and family to see if he can stay with them for a few days. Patient reports he does not want to reach out to anyone because everyone is too busy . He did report, his son has his vehicle at his home. T/W and criminal justice social worker suggested patient sell some of his belongings to be able to afford housing; pt declined and stated, I'm trying to get a storage unit for all my belongings . Patient reports he would be suicidal if he had to go to the streets but then retracted his statement and stated, I wouldn't kill myself because I want to see my kids and grandchildren grow up . Passive SI. denies HI/VH/AH. Discussed discharging this week; pt upset d/t social work not being able to help with housing. continue tx plan. 02/20: Active on unit. social with peers. Patient reports he is doing fine today. pt reports he is concerned d/t feeling like he can't walk and might need to go to the emergency room because of hip pain ; patient was observed walking independently with a steady gait since admission. Patient reports he has been calling his various outpatient medical providers for appointments. When T/W and criminal justice social worker asked pt regarding where he plans on going on discharge; pt stated, My son and friend won't let me stay there. My son told me to stay in my car in the [employer] parking lot . T/W suggested for pt to try to go to a detention near by; pt stated, That's not the crowd I run with. I'm not going to a detention . Patient then began to discuss how he does not want to go to rest home because I don't want to live in a one bedroom without my things . Patient reports his son and friend went to his apartment to gather his guitars and other belongings . When suggested again to try to sell some items to help him financially; pt declined. Future oriented. Patient discussed wanting to rebuild his relationship with his daughter to be able to see his grand-daughter before she turns into a teenager . denies SI/HI/AH. Patient reports seeing an illusion today but did not go into detail; was not observed responding to internal stimuli. Patient upset regarding not obtaining housing while in the hospital; pt stated, you guys don't do anything here but give out coloring books with no crayons . pick pack worker explained what is offered for resources through the hospital. Patient educated on: diagnosis and medication risk/benefits Reason for continued inpatient stay Substantial Risk for: stable for discharge Time Spent With Patient Time: Total time managing care of this patient today _20___ minutes.
[2025-02-20 20:00] VITALS: BP 136/68; PULSE 77; RESP 16; TEMP 36.4
[2025-02-21 08:30] VITALS: BP 126/77; PULSE 84; RESP 16; TEMP 37.4; O2SAT 98
[2025-02-21 08:37] VITALS: BP 126/77
--- NOTE | 2025-02-21 09:38 | HO.PM.IMPN ---
Subjective Subjective Date of Service: 02/21/25 Interval History: Patient is seen for reports of being unable to walk. Patient is reporting left hip pain and back pain. Patient reports that it is worse now than when he came in. Patient is observed ambulating ad chris around his room. No antalgic gait noted. Patient is standing in his room with his leg propped up on the chair. Full range of motion noted. He denies any injuries or falls. Patient is also reporting that he is more suicidal than when he came in the door. Patient states that he does not have a plan. Patient also reporting that he has prostate cancer and is overwhelmed with the prospect of having to have treatment which he has not started yet. Patient is also concerned regarding homelessness. Review of Systems Denies any shortness of breath, chest pain, headaches, dysuria, abdominal pain or discomfort, nausea, vomiting or diarrhea. Denies fever or chills. + left hip pain and back pain. Physical Exam Exam: Exam: GENERAL APPEARANCE: ?AxOx4, patient with appropriate eye contact. Anxious HEENT: Normocephalic, atraumatic, moist mucous membranes HEART:? Normal rate and regular rhythm, normal S1/S2, no m/r/g LUNGS:? CTAB, moving air well. No crackles or wheezes are heard. ABDOMEN: ?Soft, nontender, nondistended. Positive bowel sounds x4 EXTREMITIES: ?No edema. NEUROLOGICAL: ?Nonfocal neuro exam. Alert and oriented, moving all 4 extremities. Observed to ambulate with normal gait. Skin: ?Warm and dry without rashes Vital Signs: Vital Signs: Last Vital Signs Temp 97.6 F 02/20/25 20:00 Pulse 77 02/20/25 20:00 Resp 16 02/20/25 20:00 BP 126/77 02/21/25 08:37 Pulse Ox 96 02/20/25 08:00 O2 Del Method Room Air 02/20/25 20:00 BMI result Body Mass Index 20.2 Objective Data Active Medications Acetaminophen (Acetaminophen 325 Mg Tablet) 650 mg PO Q6H PRN PRN Reason: Headache/Pain, Scale 1-10 Last Admin: 02/21/25 08:34 Dose: 650 mg Documented By: ROXANA Al Hydroxide/Mg Hydroxide (Magnesium Hydrox/Alum Hydrox 30 Ml Oral.Susp) 30 ml PO Q6H PRN PRN Reason: Heartburn/Nausea Albuterol Sulfate (Albuterol Sulfate 90 Mcg 8 Gm Inhaler) 2 puff INHALE RQ6H PRN PRN Reason: Shortness of Breath/Wheezing Amlodipine Besylate (Amlodipine Besylate 5 Mg Tablet) 5 mg PO DAILY [facility]; Protocol Last Admin: 02/21/25 08:37 Dose: 5 mg Documented By: ROXANA Atorvastatin Calcium (Atorvastatin Calcium 40 Mg Tablet) 40 mg PO BEDTIME [facility] Last Admin: 02/20/25 20:16 Dose: 40 mg Documented By: TAMAR Folic Acid (Folic Acid 1 Mg Tablet) 1 mg PO DAILY [facility] Last Admin: 02/21/25 08:35 Dose: 1 mg Documented By: ROXANA Hydroxyzine HCl (Hydroxyzine Hcl 25 Mg Tablet) 25 mg PO Q6H PRN PRN Reason: mild anxiety Last Admin: 02/20/25 20:17 Dose: 25 mg Documented By: TAMAR Magnesium Hydroxide (Milk Of Magnesia 30 Ml Oral.Susp) 30 ml PO DAILY PRN PRN Reason: Constipation Last Admin: 02/17/25 13:24 Dose: 30 ml Documented By: LAMARIScot Naltrexone HCl (Naltrexone Hcl 50 Mg Tablet) 50 mg PO DAILY [facility] Last Admin: 02/21/25 08:35 Dose: 50 mg Documented By: ROXANA Nicotine (Nicotine 21 Mg Patch.Td24) 21 mg TRANSDERMA DAILY [facility] Last Admin: 02/21/25 08:38 Dose: Not Given Documented By: ROXANA Non-Admin Reason: Patient Refused Nicotine Polacrilex (Nicotine Polacrilex 2 Mg Gum) 4 mg BUCCAL Q2H PRN PRN Reason: Nicotine Cravings Nicotine Polacrilex (Nicotine Polacrilex Lozenge 2 Mg Lozenge) 2 mg BUCCAL Q2H PRN PRN Reason: Nicotine Cravings Last Admin: 02/13/25 20:19 Dose: 2 mg Documented By: FLEMINM Sertraline HCl (Sertraline Hcl 50 Mg Tablet) 50 mg PO DAILY [facility] Last Admin: 02/21/25 08:33 Dose: 50 mg Documented By: ROXANA Tizanidine HCl (Tizanidine Hcl 4 Mg Tablet) 4 mg PO TID PRN PRN Reason: muscle spasm Last Admin: 02/21/25 08:35 Dose: 4 mg Documented By: ROXANA Trazodone HCl (Trazodone Hcl 50 Mg Tablet) 50 mg PO BEDTIME MRX1 PRN PRN Reason: Insomnia Last Admin: 02/20/25 20:57 Dose: 50 mg Documented By: TAMAR Labs 02/09/25 19:45 02/13/25 08:03 Assessment and Plan (1) HTN (hypertension): Status: Acute Plan Pt is a 74 yo male with PMH as listed below presented to the emergency room with suicide ideation. Now admitted for inpatient stabilization. Major depressive disorder/suicidal ideation/alcohol use disorder Treatment per psychiatric team Back and left hip X-rays without evidence of acute fracture Patient is ambulating at baseline We will need follow up with PCP Tylenol as needed for pain HTN Continue Amlodipine 5 mgs daily HLD Atorvastatin 40 mgs HS Follow up outpatient labs Cardiac diet Alcohol use disorder Thiamine and Folic acid po daily No evidence of active withdrawal this admission COPD/ Tobacco use Albuterol inh prn Continue and RT, encouraged smoking cessation Prostate Cancer Recent diagnosis followed by [facility] Pt states he was seen by an oncologist, plan is for pt to start treatment soon Pt had outpatient colonoscopy [facility] February 19. Will need to be rescheduled Subclinical Hyperthyroidism via labs 2020 TSH 0.05 free T4 0.95 Continue to monitor every 3 months Thank you for allowing me to participate in the care of this patient. Will follow with you, please notify medical provider with any changes in condition or concerns. Quality Stroke Does the patient have a stroke diagnosis?: No VTE Prior VTE?: No VTE Risk Level:: Medical - low VTE Device Contraindication: Treatment Not Indicated VTE Drug Contraindication: Treatment Not Indicated
--- NOTE | 2025-02-21 12:52 | PM.PSYDC ---
DS: Providers Provider Date of Service: 02/21/25 Date of admission: 02/12/25 13:13 Date of discharge: 02/21/25 Primary care physician: RAN Ch Admitting clinician: Merlene Salinas Attending physician on admission: Tien Basurto Consults: 02/12/25 16:10 Consult to Hospitalist Routine Comment: Consulting Provider: [facility] Reason For Exam: need for HTN/hyperlipidemia medication? Attending physician on discharge: Tien Basurto Discharging clinician: Merlene Salinas DS: Diagnosis Discharge Diagnosis (1) HTN (hypertension): Status: Acute DS: Medications Discharge Medications Home Medications: Home Medications ?Medication ?Instructions ?Recorded ?Confirmed No Known Home Meds 02/09/25 02/10/25 Previous Rx's ?Medication ?Instructions ?Recorded albuterol sulfate 90 mcg/actuation 2 puff inhalation RQ6H PRN 02/20/25 aerosol inhaler (Ventolin HFA) Shortness Of Breath/Wheezing 30 days #8.5 grams amlodipine 5 mg tablet 5 mg PO DAILY 7 days #7 tabs 02/20/25 atorvastatin 40 mg tablet 40 mg PO BEDTIME 7 days #7 tabs 02/20/25 hydroxyzine HCl 25 mg tablet 25 mg PO BID PRN mild anxiety 7 02/20/25 days #14 tabs naltrexone 50 mg tablet 50 mg PO DAILY 30 days #30 tabs 02/20/25 sertraline 50 mg tablet 50 mg PO DAILY 30 days #30 tabs 02/20/25 tizanidine 4 mg tablet 4 mg PO BID PRN muscle spasm 2 02/20/25 days #4 tabs Mental Status Exam Mental Status Exam Narrative: Pt is alert and oriented; behavior is cooperative and calm; dressed in casual attire; mood is described as fine ; eye contact appropriate; Speech is normal rate, volume and not pressured; thought process is organized; Thought content is on tx/discharge; denies SI/HI/VH/AH. Data Imaging Diagnostic Imaging Impressions Lumbar Spine X-Ray 02/21/25 10:27 IMPRESSION: 1. Age-indeterminate mild superior endplate compression deformity of L1. 2. Moderate levoconvex scoliosis with moderate multilevel spondylosis most significant at L3-4. Electronically signed by: Dejuan Mora MD 02/21/2025 12:22 PM [facility] Hip/Pelvis X-Ray 02/21/25 10:29 IMPRESSION: 1. No acute bony or soft tissue abnormalities of the left hip. 2. Very mild degenerative arthrosis of both hip joints. Electronically signed by: Dejuan oMra MD 02/21/2025 12:18 PM [facility] DS: Summary Hospital Course Hospital Course: Patient is a 74 year old male with hx of MDD and Alcohol use d/o who self presented to ER d/t suicidal ideation secondary to increased life stressors. Per crisis report, patient arrive to ER via ambulance with complaint of life stressors, facing eviction, financial stressors and difficulty finding another job. Patient was scheduled to go to court but felt too anxious and shaky . Patient reported anxiety, depression and suicidal ideation with no specific plan. Patient reports daily alcohol use for the past 5 months; No hx of withdrawal seizures. Denies hx of inpatient psychiatric hospitalizations, detox admissions or substance abuse programs. Denies hx of SA/SIB. He reports sleep and appetite are good. He reports increased anxiety and depression over the past year due to financial stressors. Denies HI/VH/AH. Patient reports he lives alone and is in the process of being evicted. U tox positive for marijuana and alcohol. Patient reports he drinks anywhere from 9-12 beers a day. Denies any other substance use. Patient was initially discharged from ER with outpatient follow up referrals. He later returned with a complaint of having no where to go and vague suicidal ideation. When asked if he had a plan for self harm, patient stated will I can go into the bathtub and slit my wrists. Patient's disposition then changed to dual diagnosis bed. During admission assessment, patient presents alert and oriented x3. Calm and cooperative. Patient reports feeling depressed; patient stated, I got sent home at 1st. After talking with friends I realize I really needed help. I came back and had thoughts of suicide. I was supposed to go to court but I was too nervous and I was drinking the night before. Patient reports that he has been drinking excessively due to losing his job for no good reason. Patient stated, everything is going up in [place]. I can not get a job. No one wants to hire someone who 74 years old. Patient currently denies suicidal ideation. Patient stated, H just thoughts. I would not kill myself. I feel like my depression is situational. I am not always depressed. I am usually smiling and laughing. Patient reports that he is currently not interested in psychiatric medication. Patient stated, I do not feel like I need medication. Once my situation is better I should be fine . Plan: CV 15 minute safety checks [facility] protocol Obtain collateral Hospitalist consult for HTN and hyperlipidemia Referral to outpatient psychiatric providers Will discuss possibly starting medications for mood again Discharge planning Patient reports feeling depressed ; pt discussed multiple life stressors, such as not being employed, being evicted from his home and his health. Patient stated, I'm open to taking medications. Life is not great an I have a drinking problem. I don't know how to tackle all my problems at once . Discussed starting on Zoloft; risks/benefits reviewed, pt agreed to trial. Start: Zoloft 25mg PO daily. denies any withdrawal symptoms; DC [facility] protocol. Laying in bed. Patient reports feeling tired and depressed today; denies any side effects from starting Zoloft. Patient stated, my friend told me that my son is willing to help me. I'll have to call him . Patient encouraged to get out of bed to make phone calls and attend groups. denies SI/HI/VH/AH. Continue tx plan. denies SI/HI. overwhelmed with stressors. Increase sertraline to 50mg po qhs. Started naltrexon 50mg po daily for MAT AUD. Had one time dose of tizanidine 4mg po for lower back muscle spasm with good effect. will add bid prn dose. no side effects with current medications, started naltrexon. upset about his housing situation. conditional suicidality but pt presents future oriented. continue tx. no SI/HI. conditional SI if hospital does not find sect 8. otherwise presents with brighter affect and socializing on the unit. continue tx. No SI/HI. visible, social with peers, more proactive about his housing situation and calling friends. reminded hospital not able to facilitate section 8 housing. Active on unit. social with peers. observed making multiple phone calls. Patient focused on housing and eviction; patient was encouraged to reach out to friends and family to see if he can stay with them for a few days. Patient reports he does not want to reach out to anyone because everyone is too busy . He did report, his son has his vehicle at his home. T/W and geriatric social worker suggested patient sell some of his belongings to be able to afford housing; pt declined and stated, I'm trying to get a storage unit for all my belongings . Patient reports he would be suicidal if he had to go to the streets but then retracted his statement and stated, I wouldn't kill myself because I want to see my kids and grandchildren grow up . Passive SI. denies HI/VH/AH. Discussed discharging this week; pt upset d/t social work not being able to help with housing. continue tx plan. Active on unit. social with peers. Patient reports he is doing fine today. pt reports he is concerned d/t feeling like he can't walk and might need to go to the emergency room because of hip pain ; patient was observed walking independently with a steady gait since admission. Patient reports he has been calling his various outpatient medical providers for appointments. When T/W and geriatric social worker asked pt regarding where he plans on going on discharge; pt stated, My son and friend won't let me stay there. My son told me to stay in my car in the [facility] parking lot . T/W suggested for pt to try to go to a longterm near by; pt stated, That's not the crowd I run with. I'm not going to a longterm . Patient then began to discuss how he does not want to go to rest home because I don't want to live in a one bedroom without my things . Patient reports his son and friend went to his apartment to gather his guitars and other belongings . When suggested again to try to sell some items to help him financially; pt declined. Future oriented. Patient discussed wanting to rebuild his relationship with his daughter to be able to see his grand-daughter before she turns into a teenager . denies SI/HI/AH. Patient reports seeing an illusion today but did not go into detail; was not observed responding to internal stimuli. Patient upset regarding not obtaining housing while in the hospital; pt stated, you guys don't do anything here but give out coloring books with no crayons . high worker explained what is offered for resources through the hospital. Patient was seen by hospitalist for hip pain; x-rays ordered. Please see note. high worker and T/W met with pt prior to discharge. Patient continues focused on being upset regarding hospital not offering housing. Patient stated, I know a big politician that I can call. I know you can't let someone leave if they don't have anywhere to go ; pt was again reeducated regarding resources in the area. When discussing shelters in the [facility] area, pt stated, Well I'm feeling a bit better about it. It takes the pressure off a little knowing there are shelters in [facility] . denies SI/HI/VH/AH. Patient reports he plans on calling his friend and son to see who can pick him up today to bring him to his vehicle. Patient reports he plans on following up with outpatient providers. Status at Discharge Cognitive/behavioral status at discharge: Patient has insight and demonstrates good judgment in terms of wanting to pursue treatment. Patient has a safety plan that includes presenting to the closest ER or calling 911 if feeling unsafe. Functional status at discharge: independent ambulation Overall status at discharge: patient is back to baseline Time Spent with Patient Time attestation: Total time managing care of this patient today _20___ minutes. Time spent: Less than 30 minutes Discharge Plan Discharge Anticipated Discharge Date/Time: 02/21/25 11:30 Patient Disposition: Home, Self-Care Discharge Diagnosis: MDD, Alcohol use d/o Referrals: [facility] [Other] - 1 Week Referral Note: *You can follow up with the agency above for help and support in the community. They can provide resources regarding housing different avenues to pursue. [facility] [Other] - 1 Week Referral Note: *You can follow up with [employer]'s for assistance with housing. [facility] [Other] - 1 Week Referral Note: *You can follow up with the homeless longterm above each morning. You must call the number listed above each morning to inquire about bed availability. [facility] [Other] - 1 Week Referral Note: *You can present to the clinic above, Wednesday through Wednesday during the hours of 8am and 8pm, in order to obtain outpatient mental health providers. [facility] [Other] - 1 Week Referral Note: Doors open each evening at 5 pm. Guests seeking overnight longterm may start to line up between 3PM and 5PM at the [facility]. When staff arrive at 4PM they will distribute numbers to those already in line and as additional guests arrive. Harish Zaidi PA [Primary Care Provider, Family Practice] - 03/05/25 9:15 am Referral Note: 02-19-25 Your follow up appt has been scheduled for 03-05-25 @ 9:15am. Discharge Medications: New albuterol sulfate [Ventolin HFA] 90 mcg/actuation Hfa Aerosol Inhaler 2 puff inhalation RQ6H PRN (Reason: Shortness Of Breath/Wheezing) 30 Days Qty: 8.5 0RF amlodipine 5 mg Tablet 5 mg PO DAILY 7 Days Qty: 7 1RF Protocol: Hold for SBP< HOLD for SBP < : 90 atorvastatin 40 mg Tablet 40 mg PO BEDTIME 7 Days Qty: 7 1RF sertraline 50 mg Tablet 50 mg PO DAILY 30 Days Qty: 30 0RF naltrexone 50 mg Tablet 50 mg PO DAILY 30 Days Qty: 30 0RF tizanidine 4 mg Tablet 4 mg PO BID PRN (Reason: muscle spasm) 2 Days Qty: 4 0RF hydroxyzine HCl 25 mg Tablet 25 mg PO BID PRN (Reason: mild anxiety) 7 Days Qty: 14 0RF No Action No Known Home Meds Discharge Orders: Discharge Order (Routine); Ordered 02/21/25 Ordered By: Merlene Salinas Diet: Regular diet Activity on Discharge: As tolerated Stand Alone Forms: Patient Portal Discharge page, Community Support Print Language: Latvian Care Plan Goals: Maintain mood and safe behaviors Take medications as prescribed Continue to pursue sobriety Practice coping skills Continue with outpatient providers and reach out to them as needed Health Concerns: Mood stability and behaviors Sobriety Plan of Treatment: Follow up with your PCP, psychiatric provider and other outpatient providers regarding above concerns Take medications as prescribed Assessment: Patient has insight and demonstrates good judgment in terms of wanting to pursue treatment. Patient has a safety plan that includes presenting to the closest ER or calling 911 if feeling unsafe. Discharge Date/Time: 02/21/25 13:30
== END 2025-02-21 13:30 | disposition home or self-care (01) | DRG 881 ==
LOC: HO.ED 02-12 02:05 → HO.PADLT16 02-12 13:23
PROVIDERS: Nurse Practitioner Family; Physician Assistant; Admitting Provider Registered Nurse; Emergency Provider Emergency Medicine; PCP Physician Assistant; Responsible Provider Registered Nurse; Visit Provider Psychiatry & Neurology Psychiatry
DX: F32.9 Major depressive disorder, single episode, unspecified (principal); Z59.02 Unsheltered homelessness; R45.851 Suicidal ideations; C61 Malignant neoplasm of prostate; F17.210 Nicotine dependence, cigarettes, uncomplicated; J44.9 Chronic obstructive pulmonary disease, unspecified; I10 Essential (primary) hypertension; F10.20 Alcohol dependence, uncomplicated; Z71.6 Tobacco abuse counseling; Z79.899 Other long term (current) drug therapy
CPT/HCPCS: 36415; 72100; 73502; 80053; 80061; 80307; 81001; 81003; 82607; 82746; 83036; 83540; 83735; 84439; 84443; 85025; 86704; 86706; 86709; 86803; 87340; 93005; 99285; S9485

== ENCOUNTER 2025-02-12 13:13 | Outpatient (BNV) | payer MEDICARE, SELFPAY | END 2025-02-21 10:29 | PROVIDERS: Admitting Provider Registered Nurse; Emergency Provider Emergency Medicine; PCP Physician Assistant; Responsible Provider Registered Nurse; Visit Provider Radiology Diagnostic Radiology | DX: M25.552 Pain in left hip (principal); M47.816 Spondylosis without myelopathy or radiculopathy, lumbar region | CPT/HCPCS: 72100; 73502 ==

== ENCOUNTER → 2025-02-12 13:13 | Outpatient (BNV) | payer MEDICARE, SELFPAY | PROVIDERS: Admitting Provider Registered Nurse; Emergency Provider Emergency Medicine; PCP Physician Assistant; Responsible Provider Registered Nurse; Visit Provider Registered Nurse | DX: F32.9 Major depressive disorder, single episode, unspecified (principal); F10.90 Alcohol use, unspecified, uncomplicated | CPT/HCPCS: 90792; 99232 ==

== ENCOUNTER → 2025-02-12 13:13 | Outpatient (BNV) | payer MEDICARE, SELFPAY | PROVIDERS: Admitting Provider Registered Nurse; Emergency Provider Emergency Medicine; PCP Physician Assistant; Responsible Provider Registered Nurse; Visit Provider Nurse Practitioner Family | DX: I10 Essential (primary) hypertension (principal) | CPT/HCPCS: 99223; 99231 ==